=== PATIENT | female | born 1935 | race Caucasian/White ===

== ENCOUNTER → 2016-04-16 | Day surgery (SDC) | payer OTHER, MEDICARE ==
[2016-04-14 14:53] VITALS: Ht 157.5 cm; Wt 67.2 kg
[~2016-04-16] VITALS: Ht 157.5 cm; Wt 67.2 kg
[~2016-04-16] MED LIST: ACET-1256 PO; ACET500C14 PO; AMLO2.5T PO; ASPCH81 PO; ASPI81TA28 PO; ATOR-26 PO; BUME1TAB PO; BUME2TAB3 PO; BUPIVACAINE 0.25% 2.5MG/ML PF 10 ML VIAL INFIL ONE; CARV3.122 PO; CEFD1CAP14 PO; CEFD300C2 PO; CHOL2000 PO; CLOP1TAB15 PO; CRD200 PO; CRG3125 PO; CYAN10005 PO; IOPAMIDOL INJ 61% 15 ML VIAL ONE; LEVO125T72 PO; LIDOCAINE HCL 1% MPF 5 ML VIAL ONE; NTRGSL/4 UT; OLME1TAB11 PO; OLME20TA26 PO; POTA-74 PO; PRT40 PO; SPIR25TA PO; SPIR25TA89 PO; TRAM-10 PO; TRAZ50TA35 PO
[2016-04-16 13:07] VITALS: TEMP 36.3
--- NOTE | 2016-04-16 13:53 | History & Physical Bridge - [place] ---
H&P Re-Evaluation Bridge Note: I have examined the patient, reviewed the History & Physical and in the interval since the performance of the History & Physical I have noted the following changes of clinical significance: No changes noted
[2016-04-16 14:15] VITALS: BP 65/37; PULSE 73; O2SAT 95
--- NOTE | 2016-04-16 14:26 | Discharge Instructions ---
Discharge Instructions Visit Reason for Visit: Sacroiliitis Discharge Discharge Diagnosis / Problem: low back pain Discharge Goals Goal(s): Decrease discomfort, Improve function Activity Recommendations Activity Limitations: resume your previous activity Anesthesia . Post Anesthesia Instructions: If you have had General Anesthesia or IV Sedation: * Do not drive today. * Resume driving when surgeon permits. * Do not make important decisions or sign legal documents today. * Call surgeon for: 1. Temperature elevations greater than 101 degrees F. 2. Uncontrollable pain. 3. Excessive bleeding. 4. Persistent nausea and vomiting. 5. Medication intolerance (nausea, vomiting or rash). * For nausea and vomiting use only clear liquids such as: tea, soda, bouillon until nausea subsides, then gradually increase diet as tolerated. * If you have any concerns or questions, call your surgeon's office. If physician is unavailable and it is an emergency, call 911 or go to the nearest emergency room. . Diet Recommendations Recommended Home Diet: resume previous diet Procedures Procedures Performed: LEFT SACROILIAC JOINT INJECTION Pending Studies Studies pending at discharge: yes Medical Emergencies . Who to Call and When: Medical Emergencies: If at any time you feel your situation is an emergency, please call 911 immediately. . Non-Emergent Contact Non-Emergency issues call your: Specialist . . "Provider Documentation" section prepared by Yoshi Wesley.
--- NOTE | 2016-04-16 15:52 | OPERATIVE REPORT ---
DATE OF OPERATION: 04/16/2016 PREOPERATIVE DIAGNOSIS: Left sacroiliitis. POSTOPERATIVE DIAGNOSIS: Same. PROCEDURE: Left sacroiliac joint injection under fluoroscopic guidance. INDICATIONS: The patient is an 80-year-old white female who presents today for an SI joint injection. She received this in the past 5 months ago with greater than 66% relief of her pain. She reports just recently that over the past 4-6 weeks the pain has been gradually increasing and becoming problematic and functionally limiting to her. She presents today for an SI joint injection to provide her with relief. PHYSICAL EXAMINATION: Pleasant female seated comfortably. She has difficulty moving from a sit to stand position. She has point tenderness to palpation of the left SI joint that is worse with extension. She has normal motor and sensory examination. Negative seated straight leg raises. CONSENT: Verbal and written consent was obtained from the patient. Risks and benefits were reviewed. Risks include but are not limited to abscess and allergic reaction. The patient wishes to proceed. PROCEDURE: The patient was taken back to the special procedures room of [facility]. She was maintained in a prone position. Backside was cleansed with Betadine x3 and a dry sterile dressing was applied. Fluoroscope was used to identify the left SI joint. Overlying skin was anesthetized with lidocaine with 3 mL of 1.5%, then a 25 gauge 3.5 inch spinal needle was then directed into the joint. Isovue-300 contrast 0.25 mL demonstrated intraarticular uptake. She then underwent injection after negative aspiration of 40 mg of Depo-Medrol and 1.5 mL of bupivacaine 0.25%. Injection was well tolerated. DISPOSITION: 1. The patient is taken out into the discharge recovery area where she will be discharged home once discharge criteria have been met. 2. Follow up in the [facility] office in 2-4 weeks. I attest to the content of the Intraoperative Record and any orders documented therein. Any exceptio ns are noted below.
== END | disposition home or self-care (01) ==
LOC: X.SURG 12:59
PROVIDERS: ATTEND Physical Medicine & Rehabilitation
DX: M46.1 Sacroiliitis, not elsewhere classified (principal)

== ENCOUNTER → 2016-06-19 | Outpatient (CLI) | payer OTHER, MEDICARE ==
[~2016-06-19] MED LIST changes: -BUPIVACAINE 0.25% 2.5MG/ML PF 10 ML VIAL INFIL ONE; +GABA-1218 PO; -IOPAMIDOL INJ 61% 15 ML VIAL ONE; -LIDOCAINE HCL 1% MPF 5 ML VIAL ONE
--- NOTE | 2016-06-19 16:56 | DIAGNOSTIC IMAGING REPORT ---
CHEST 2 VIEWS ROUTINE CLINICAL HISTORY: Chest pain. History of chest trauma. COMPARISON STUDY: 08/02/2015 FINDINGS: There is a thoracolumbar scoliosis. The heart is normal in size. There is aortic tortuosity. There is no failure. There is no focal pulmonary consolidation. There is no pneumothorax. No pleural effusions are visualized. There is colonic interposition on the right.[ IMPRESSION: No active disease in the chest. Electronically signed by: Quentin Miller M.D. 06/19/2016 4:54 PM Dictated Date/Time: 06/19/2016 4:54 PM
--- NOTE | 2016-06-19 16:59 | DIAGNOSTIC IMAGING REPORT ---
RIGHT RIBS UNILATERAL MIN 2 VIEWS CLINICAL HISTORY: Right rib pain trauma. COMPARISON STUDY: Chest x-ray dated 06/19/2016 FINDINGS: There is a right seventh rib fracture, an equivocal right sixth rib fracture. There is no pneumothorax. IMPRESSION: 1. Nondisplaced right seventh rib fracture, and equivocal right sixth rib fracture. 2. No evidence of pneumothorax Electronically signed by: Quentin Miller M.D. 06/19/2016 4:57 PM Dictated Date/Time: 06/19/2016 4:54 PM
== END | disposition home or self-care (01) ==
LOC: C.RAD1850 16:35
PROVIDERS: ATTEND Family Medicine
DX: R07.9 Chest pain, unspecified (principal); S22.31XA Fracture of one rib, right side, initial encounter for closed fracture; X58.XXXA Exposure to other specified factors, initial encounter

== ENCOUNTER 2016-07-02 13:54 | Inpatient (IN) | payer OTHER, MEDICARE ==
[~2016-07-02] VITALS: Ht 152.4 cm; Wt 50.6 kg
[~2016-07-02 13:54] MED LIST changes: -ACET-1256 PO; -ASPI81TA28 PO; -BUME2TAB3 PO; -CARV3.122 PO; -CEFD1CAP14 PO; -CEFD300C2 PO; -CRD200 PO; -CYAN10005 PO; -GABA-1218 PO; -OLME20TA26 PO; -POTA-74 PO; -PRT40 PO; -SPIR25TA89 PO
[2016-07-02] MEDS ORDERED: SODIUM CHLORIDE 0.9% 1000ML 1,000 ML IV STA ×2 (14:16)
--- NOTE | 2016-07-02 14:24 | EMERGENCY ROOM VISIT NOTE ---
History Report prepared by Estrellita: Leni Haddad Under the Supervision of: Dr. Sergio Stuart M.D. First contact with patient: 14:08 Chief Complaint: VOMITING Stated Complaint: DEHYDRATED History of Present Illness The patient is an 80 year old female who presents to the Emergency Room with complaints of persistent vomiting that began a few days ago. The patient additionally associates nausea and diarrhea with her symptoms today. The patient's daughter notes that the patient's speech was slurred this morning and she could not understand the patient. She notes that this has happened in the past, which prompted her to call for ALS. The patient's daughter notes that the patient has developed a right facial droop within the last few days, noting that she last saw the patient on Wednesday. She notes that the patient has a history of strokes. The patient's daughter notes that the patient had a fall two weeks ago, noting that the patient hit her chest off of the kitchen table. The patient was noted to be hypotensive today. The patient denies any hematochezia, melena, abdominal pain, or wounds to her bottom. She denies any recent antibiotic use. Source of History: patient, family (daughter) Onset: few days ago Position: other (global) Quality: other (vomiting) Timing: other (persistent) Associated Symptoms: + diarrhea, + nausea, No abdominal pain, No hematochezia, No melena Note: Associated Symptoms: left facial droop, speech slur, hypotensive Review of Systems See HPI for pertinent positives & negatives. A total of 10 systems reviewed and were otherwise negative. Past Medical & Surgical Medical Problems: (1) Acute exacerbation of CHF (congestive heart failure) (2) CHF (congestive heart failure) (3) Hypoxia (4) TIA (transient ischemic attack) Family History No pertinent family history Social History Smoking Status: Former Smoker Housing Status: lives alone Occupation Status: unemployed Current/Historical Medications Scheduled Acetaminophen (Tylenol), 2 TAB PO Q6 Amlodipine Besylate (Norvasc), 2.5 MG PO QAM Aspirin (Aspirin Ec), 81 MG PO DAILY Atorvastatin (Lipitor), 80 MG PO HS Bumetanide (Bumex), 1.5 MG PO QAM Carvedilol (Coreg), 1 TAB PO BID Cholecalciferol (Vitamin D3), 1 CAP PO HS Clopidogrel (Plavix), 75 MG PO QAM Levothyroxine Sodium (Synthroid), 125 MCG PO QAM Olmesartan Medoxomil (Benicar), 20 MG PO QAM Spironolactone (Aldactone), 25 MG PO QAM Scheduled PRN Nitroglycerin (Nitrostat), 0.4 MG UT PRN PRN for Chest Pain Tramadol (Ultram), 1-2 TAB PO Q4 PRN for Pain Trazodone Hcl (Trazodone), 25 MG PO HS PRN for Sleep Allergies Coded Allergies: Ramipril (Verified Allergy, Unknown, Cough, 07/02/16) Physical Exam Vital Signs Date Time Temp Pulse Resp B/P Pulse Ox O2 Delivery O2 Flow Rate FiO2 07/02/16 14:30 90 18 76/39 96 Nasal Cannula 2.0 07/02/16 14:15 93 Room Air 07/02/16 14:10 36.9 91 23 69/50 93 Room Air Physical Exam GENERAL: Patient is chronically unwell appearing and in mild distress. Uncomfortable appearing. HEENT: No acute trauma, normocephalic atraumatic, mucous membranes dry, no nasal congestion, no scleral icterus. NECK: No stridor, no adenopathy, no meningismus, trachea is midline. LUNGS: No dyspnea. Clear to auscultation and equal bilaterally. No wheeze, no rhonchi. HEART: Regular rate and rhythm. No murmurs, rubs, gallops appreciated. ABDOMEN: Multiple large nontender hernias. Soft, nontender, bowel sounds positive, no masses appreciated, no peritonitis. BACK: No midline tenderness, no CVA tenderness EXTREMITIES: Normal motion all extremities, no cyanosis, no edema. NEUROLOGIC: Alert and oriented, right facial droop with slurred speech. Generalized weakness in all extremities without other focal weakness. SKIN: No rash, no jaundice, no diaphoresis. Medical Decision & Procedures ER Provider Diagnostic Interpretation: Radiology results and stated below per my review and radiologist interpretation: CT HEAD WITHOUT CONTRAST (CT) CLINICAL HISTORY: Head trauma. Stroke. COMPARISON STUDY: 06/28/2014 TECHNIQUE: Axial CT of the brain is performed from the vertex to the skull base. IV contrast was not administered for this examination. CT DOSE: 614.27 mGy.cm FINDINGS: No intra or extra-axial mass lesions are visualized. There is no CT evidence of acute cortical infarction. There is no evidence of midline shift. There is no acute hemorrhage. No calvarial fractures are visualized. There are patchy white matter hypodensities likely on a small vessel basis. There are old bilateral basal ganglial lacunar infarcts. There is no evidence of significant hydrocephalus. There is persistent dilatation of the anterior horn left lateral ventricle, likely secondary to adjacent parenchymal volume loss There is no evidence of acute sinusitis IMPRESSION: No acute intracranial findings Electronically signed by: Quentin Miller M.D. 07/02/2016 3:41 PM Dictated Date/Time: 07/02/2016 3:39 PM SINGLE VIEW CHEST CLINICAL HISTORY: Hypotension. Dehydration. FINDINGS: An AP, portable, upright chest radiograph is compared to study dated 06/19/2016. Correlation is made with abdominal CT dated 07/06/2014. The examination is degraded by portable technique and patient rotation. The heart is top normal for projection. The pulmonary vasculature is noncongested. There is advanced atherosclerotic calcification of the thoracic aorta. 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 This is similar in appearance to prior studies. There is chronic elevation of the right hemidiaphragm with right basilar atelectasis. Chronic interstitial thickening is unchanged. No airspace consolidation is seen typical for pneumonia and there is no large pleural effusion. No pneumothorax is seen. The skeletal structures are osteopenic. The bony thorax is grossly intact. IMPRESSION: 1. Chronic parenchymal changes as above with no acute cardiopulmonary abnormality 2. An aneurysm of the descending thoracic aorta is identified and similar in appearance to prior studies. Electronically signed by: Miguel Venegas M.D. 07/02/2016 2:44 PM Dictated Date/Time: 07/02/2016 2:41 PM Laboratory Results Test 07/02/16 14:50 07/02/16 14:56 07/02/16 16:12 Prothrombin Time 11.4 SECONDS (9.0-12.0) Prothromb Time International Ratio 1.1 (0.9-1.1) Activated Partial Thromboplast Time 28.9 SECONDS (21.0-31.0) Partial Thromboplastin Ratio 1.1 Globulin 3.8 gm/dl (2.5-4.0) Albumin/Globulin Ratio 0.9 (0.9-2) Procalcitonin 17.04 ng/ml (0-0.5) Bedside Lactic Acid Venous 3.63 mmol/L (0.90-1.70) Bedside Blood Gas pH (LAB) 7.39 (7.35-7.45) Bedside Blood Gas pCO2 (LAB) 37 mmHg (35-46) Bedside Blood Gas pO2 (LAB) 41 mmHg (80-95) Bedside Blood Gas HCO3 (LAB) 22 meq/L (19-24) Bedside Blood Gas Total CO2 23 mEq/l (24-31) Bedside Blood Gas Base Excess (LAB) -3.0 meq/L (-9-1.8) Bedside Blood Gas O2 Saturation 76.0 % (90-95) Laboratory results as reviewed by me. Medications Administered Medications (Trade) Dose Ordered Sig/Nicko Route Start Time Stop Time Status Last Admin Dose Admin Sodium Chloride 1,000 ml @ 999 mls/hr Q1H1M STAT IV 07/02/16 14:16 07/02/16 15:16 DC 07/02/16 15:07 999 MLS/HR Sodium Chloride 1,000 ml @ 999 mls/hr Q1H1M STAT IV 07/02/16 14:16 07/02/16 15:16 DC 07/02/16 15:07 999 MLS/HR Vancomycin HCl/ Sodium Chloride (Vancomycin Inj/ Nss 500ml) 532 ml @ 200 mls/hr ONE STAT IV 07/02/16 15:44 07/02/16 18:23 DC 07/02/16 16:37 200 MLS/HR Piperacillin Sod/ Tazobactam Sod 4.5 gm 4.5 gm NOW STAT IV 07/02/16 15:44 07/02/16 15:46 DC 07/02/16 16:00 4.5 GM Sodium Chloride (Nss 1000ml) 1,000 ml @ 80 mls/hr [id number] IV 07/02/16 16:16 08/01/16 16:15 07/03/16 05:57 80 MLS/HR ECG Indication: vomiting Rate (beats per minute): 90 Rhythm: sinus rhythm Findings: ST depression (Lateral), no ectopy, other (no STEMI) ED Course 1408: The patient was evaluated in room B11B. A complete history and physical exam was performed. 1416: Ordered Sodium Chloride 1000 ml @ 999 mls/hr IV, Sodium Chloride 1000 ml @ 999 mls/hr IV. 1544: Ordered Zosyn IV 4.5 gm IV, Vancomycin HCl 1600 mg/Sodium Chloride 532 ml @ 200 mls/hr IV. 1549: I discussed the patients case with TYLOR Mcgowan. He is going to evaluate the patient for further treatment. Medical Decision Differential: Sepsis, Infectious (UTI/Pneumonia/Meningitis/etc), Metabolic/ Electrolyte Abnormality, Cardiac, Hepatic, Endocrine, Toxicologic, Neurologic, amongst other pathologies entertained. 80 yr old female arrives for evaluation of diarrhea and weakness. Noted to be severely hypotensive on arrival though review of chart makes very clear this is her normal BP range secondary to subclavian stenosis. However, she was ill appearing and toxic looking thus Lactic acid, blood cultures and 2 IVs ordered along with 2 L NSS Bolus ordered (30ml/kg bolus). It was understood her severe history of CHF however I did feel patient clearly severely dehydrated and with concern septic felt aggressive hydration for resus required. Initial Lactate elevated though this could be more do to dehydration as well. With return of procalcitonin being severely elevated elected to at this time to go ahead with broad spectrum abx. She is in renal failure, likely secondary to level of dehydration as well. Abdominal exam benign and without current vomiting elected to hold off on imaging at this time. Right facial droop and slurred speech significantly worse than baseline concerning for new stroke, though also is similar to symptoms from previous TIA. CT head without acute findings. Ongoing for a day thus is not TPA candidate. Suspect her severe volume depletion has exacerbated previous stroke issues, though with current severe illness she is in no condition to go through MRI at this time. Discussed case at length with hospitalist as well as family on several occasions. Consults Time Called: [phone] Consulting Physician: TYLOR Mcgowan Returned Call: [phone] I discussed the patients case with TYLOR Mcgowan. He is going to evaluate the patient for further treatment. Impression Primary Impression: Sepsis Additional Impressions: Lactic acidosis Dehydration Hypotension Stroke Critical Care I have personally spent greater than 45 minutes of critical care time in the direct management of this patient. This was a life/limb threatening event. This includes time spent evaluating patient, direct bedside care, chart review, placing orders, interpretation of diagnostic studies, discussion with consultants, patient, and family members, as well as other required patient management activities. This 45 minutes is in excess of all separately billable procedures. Scribe Attestation The scribe's documentation has been prepared under my direction and personally reviewed by me in its entirety. I confirm that the note above accurately reflects all work, treatment, procedures, and medical decision making performed by me. Departure Information Dispostion Being Evaluated By Hospitalist Isauro Howard M.D. (PCP) Stroke History Stroke t-PA Criteria Reviewed Does NOT meet criteria for t-PA Reason t-PA Not Given Treatment not indicated (The right facil droop has been present since yesterday. ) Problem Qualifiers Primary Impression: Sepsis Sepsis type: sepsis due to unspecified organism Qualified Codes: A41.9 - Sepsis, unspecified organism Additional Impressions: Hypotension Hypotension type: unspecified hypotension type Qualified Codes: I95.9 - Hypotension, unspecified Stroke CVA mechanism: unspecified Qualified Codes: I63.9 - Cerebral infarction, unspecified
--- NOTE | 2016-07-02 14:46 | DIAGNOSTIC IMAGING REPORT ---
SINGLE VIEW CHEST CLINICAL HISTORY: Hypotension. Dehydration. FINDINGS: An AP, portable, upright chest radiograph is compared to study dated 06/19/2016. Correlation is made with abdominal CT dated 07/06/2014. The examination is degraded by portable technique and patient rotation. The heart is top normal for projection. The pulmonary vasculature is noncongested. There is advanced atherosclerotic calcification of the thoracic aorta. 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 This is similar in appearance to prior studies. There is chronic elevation of the right hemidiaphragm with right basilar atelectasis. Chronic interstitial thickening is unchanged. No airspace consolidation is seen typical for pneumonia and there is no large pleural effusion. No pneumothorax is seen. The skeletal structures are osteopenic. The bony thorax is grossly intact. IMPRESSION: 1. Chronic parenchymal changes as above with no acute cardiopulmonary abnormality 2. An aneurysm of the descending thoracic aorta is identified and similar in appearance to prior studies. Electronically signed by: Miguel Venegas M.D. 07/02/2016 2:44 PM Dictated Date/Time: 07/02/2016 2:41 PM
[2016-07-02 15:01] LABS: COMPLETE YES; HEMATOCRIT 37.7 % (37-47); IG% 0.4 %; LYMPH % 11.6 %; LYMPH ABS # 0.99 K/uL (1.2-3.4); MEAN CELL VOLUME 99.7 fL (80-100); MEAN CORPUSCULAR HEMOGLOBIN 33.3 pg (25-34); MEAN CORPUSCULAR HGB CONC 33.4 g/dl (32-36); MEAN PLATELET VOLUME 10.7 fL (7.4-10.4); PLATELET COUNT 299 K/uL (130-400); RED BLOOD COUNT 3.78 M/uL (4.2-5.4)
[2016-07-02] MEDS ORDERED: ASPI81TA28 PO (15:05)
[2016-07-02] MEDS ORDERED: CARV3.122 PO (15:05)
[2016-07-02] MEDS ORDERED: ACET-1256 PO (15:05)
[2016-07-02 15:14] LABS: INR 1.1 (0.9-1.1); PARTIAL THROMBOPLASTIN RATIO 1.1; PROTHROMBIN TIME (PATIENT) 11.4 SECONDS (9.0-12.0)
[2016-07-02 15:18] LABS: BUN/CREATININE RATIO 27.1 (10-20); CALCIUM 8.1 mg/dl (8.5-10.1); CREATININE 4.1 mg/dl (0.60-1.20); MAGNESIUM 2.5 mg/dl (1.8-2.4); POTASSIUM 4.4 mmol/L (3.5-5.1)
[2016-07-02 15:23] LABS: ALB/GLOB RATIO 0.9 (0.9-2)
--- NOTE | 2016-07-02 15:43 | DIAGNOSTIC IMAGING REPORT ---
CT HEAD WITHOUT CONTRAST (CT) CLINICAL HISTORY: Head trauma. Stroke. COMPARISON STUDY: 06/28/2014 TECHNIQUE: Axial CT of the brain is performed from the vertex to the skull base. IV contrast was not administered for this examination. CT DOSE: 614.27 mGy.cm FINDINGS: No intra or extra-axial mass lesions are visualized. There is no CT evidence of acute cortical infarction. There is no evidence of midline shift. There is no acute hemorrhage. No calvarial fractures are visualized. There are patchy white matter hypodensities likely on a small vessel basis. There are old bilateral basal ganglial lacunar infarcts. There is no evidence of significant hydrocephalus. There is persistent dilatation of the anterior horn left lateral ventricle, likely secondary to adjacent parenchymal volume loss There is no evidence of acute sinusitis IMPRESSION: No acute intracranial findings Electronically signed by: Quentin Miller M.D. 07/02/2016 3:41 PM Dictated Date/Time: 07/02/2016 3:39 PM
[2016-07-02] MEDS ORDERED: PIPERACILLIN/TAZOBACTAM 4.5 GM/100ML D5W IV STA (15:44)
[2016-07-02] MEDS ORDERED: VANCOMYCIN INJ 1,600 MG in SODIUM CHLORIDE 0.9% 500ML 500 ML IV STA (15:44)
[2016-07-02 16:30] LABS: ISTAT ARTERIAL BLOOD GAS HCO3 22 meq/L (19-24); ISTAT ARTERIAL BLOOD GAS PCO2 37 mmHg (35-46); ISTAT ARTERIAL BLOOD GAS PO2 41 mmHg (80-95); ISTAT ARTERIAL BLOOD GAS pH 7.39 (7.35-7.45); ISTAT CARBON DIOXIDE 23 mEq/l (24-31)
[2016-07-02] MEDS ORDERED: ACETAMINOPHEN 325 MG TAB PO PRN (16:30)
[2016-07-02] MEDS ORDERED: ONDANSETRON INJ 2 MG/ML 2 ML VIAL IV PRN (16:30)
[2016-07-02] MEDS ORDERED: CONSULT PHARMACY STA (16:44)
[2016-07-02 17:11] LABS: URINE APPEARANCE CLOUDY (CLEAR); URINE COLOR ORANGE; URINE EPITHELIAL CELL AUTO >30 /lpf (0-5); URINE NITRITE POS (NEG); UROBILINOGEN NEG (NEG); ZZURINE CULT IF INDIC CATH YES
[2016-07-02 17:13] LABS: MANUAL MICROSCOPIC REQUIRED? NO; REVIEW REQ? YES
[2016-07-02 17:15] LABS: URINE BILIRUBIN NEG (NEG)
[2016-07-02] MEDS ORDERED: PIPERACILL/TAZOBAC CONSULT ACTIVE PRN (17:15)
[2016-07-02] MEDS ORDERED: VANCOMYCIN CONSULT ACTIVE PRN (17:15)
[2016-07-02 17:58] VITALS: BP 90/55; PULSE 60; TEMP 36.5; Ht 152.4 cm; Wt 50.6 kg
[2016-07-02] MEDS: SODIUM CHLORIDE 0.9% 1000ML 1,000 ML IV SCH (18:43)
--- NOTE | 2016-07-02 18:48 | DIAGNOSTIC IMAGING REPORT ---
ABDOMEN AND PELVIS CT WITHOUT CONTRAST CT DOSE: 276.47 mGy.cm HISTORY: Generalized ABDOMINAL PAIN, LACTIC ACIDOSIS, H/O SBO TECHNIQUE: Multiaxial CT images of the abdomen and pelvis were performed without contrast. COMPARISON STUDY: Abdomen and pelvis CT 07/06/2014. FINDINGS: Patchy groundglass densities within the base of the right lower lobe. The left lung base is clear. No pneumoperitoneum. No pneumatosis. Severe left hip osteoarthritis, unchanged. Levoscoliosis of the lumbar spine with degenerative change. Acute to subacute right anterior rib fractures. Mild inferior endplate compression deformity at T12 is likely old. Aneurysmal dilatation of the descending thoracic aorta measuring 6.6 x 5.4 cm. This is increased in size in the prior study when it measured up to 5.5 cm. There is additional right lateral saccular aneurysm at this location which measures 1.9 cm, previously measuring 1.7 cm. There is also aneurysmal dilatation of the proximal abdominal aorta measuring 4.2 cm, previous measuring 4.0 cm. The bladder is decompressed by a Díaz catheter. Fluid-filled colon. A short segment of the mid transverse colon is located within a ventral hernia. This is similar to the prior study. There are 2 stable hypodense lesions within the liver measuring up to 1 cm. These favor cysts. The gallbladder is mildly distended. The spleen, adrenal glands, and pancreas are unremarkable. Atrophic right kidney containing a 5.2 cm hypodense lesion. This remains stable and likely represents a cyst. 2 small hypodense lesions within the left kidney favor cysts. No hydronephrosis. Suboptimal evaluation for bowel pathology due to the lack of intravenous and oral contrast. There are distended loops of mid small bowel within the abdomen. These measure up to 4 m in diameter and likely represent a partial small bowel obstruction. These demonstrate air fluid levels. Distal ileal loops are slightly decompressed and could be mildly thickened. An exact transition point is difficult to identify at this time. There is also a small fat-containing midline ventral hernia, unchanged IMPRESSION: 1. Above findings are consistent with a small bowel obstruction, likely a partial small bowel obstruction. A transition point is not clearly identified at this time. However, the distal ileal loops are slightly decompressed and could be mildly thickened in the setting of an ileitis. 2. 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 3. No change in the ventral hernias. These do not appear to result in the bowel obstruction. 4. Nonspecific ground glass densities within the right lung base which could be due to scarring or a pneumonitis. 5. Acute to subacute right anterior rib fractures. Electronically signed by: Rick Bae M.D. 07/02/2016 6:46 PM Dictated Date/Time: 07/02/2016 6:33 PM
[2016-07-02 18:49] VITALS: O2SAT 91
[2016-07-02 19:21] VITALS: PULSE 95; TEMP 36.4; O2SAT 90
[2016-07-02 19:22] LABS: BUN/CREATININE RATIO 30.5 (10-20); CALCIUM 6.7 mg/dl (8.5-10.1); CREATININE 3.3 mg/dl (0.60-1.20); POTASSIUM 3.9 mmol/L (3.5-5.1)
--- NOTE | 2016-07-02 19:58 | Pharmacy Progress Note ---
Pharmacy Antibiotic Consult Date of Service: Jul 02, 2016. Pharmacy Dosing Scope Pharmacy is consulted to initiate vancomycin IV dosing therapy, order appropriate labs and adjust drug dose/frequency. Subjective The patient is a 80 year old female admitted on Jul 02, 2016 at 16:21. Objective Height (Feet): 5 Height (Inches): 2.00 Weight (Kilograms): 63.900 Lab Results (24hrs): Laboratory Tests Test 07/02/16 14:50 07/02/16 18:55 BUN/Creatinine Ratio 27.1 30.5 Blood Urea Nitrogen 111 mg/dl 101 mg/dl Creatinine 4.10 mg/dl 3.30 mg/dl White Blood Count 8.50 K/uL Red Blood Count 3.78 M/uL Hemoglobin 12.6 g/dL Hematocrit 37.7 % Mean Corpuscular Volume 99.7 fL Mean Corpuscular Hemoglobin 33.3 pg Mean Corpuscular Hemoglobin Concent 33.4 g/dl Platelet Count 299 K/uL Mean Platelet Volume 10.7 fL Neutrophils (%) (Auto) 74.0 % Lymphocytes (%) (Auto) 11.6 % Monocytes (%) (Auto) 14.0 % Eosinophils (%) (Auto) 0.0 % Basophils (%) (Auto) 0.0 % Neutrophils # (Auto) 6.29 K/uL Lymphocytes # (Auto) 0.99 K/uL Monocytes # (Auto) 1.19 K/uL Eosinophils # (Auto) 0.00 K/uL Basophils # (Auto) 0.00 K/uL Assessment & Plan Assessment * 80 yo F with sepsis, unknown source. On Zosyn, vancomycin. * Patient with severe renal dysfunction - will dose vancomycin via level * Vancomycin loading dose of 25 mg/kg already administered in ED. Will not administer further vancomycin at this time. * Will check random vancomycin level with AM labs Plan * No further vancomycin needed before tomorrow * Vancomycin level tomorrow with AM labs Pharmacy will continue to follow and will adjust dose/frequency as necessary. Thank you
[2016-07-02 20:00] VITALS: O2SAT 90
--- NOTE | 2016-07-02 20:18 | History and Physical ---
History & Physical Date & Time of Service: Jul 02, 2016 at 16:23 Chief Complaint: Dehydrated Primary Care Physician: Isauro Lange M.D. History of Present Illness Source: patient, family, clinic records, hospital records 80 yo female with extensive cardiac history detailed below presents today c/o feeling ill for several days. She reports that she has had diarrhea, averaging 4 loose stools every day for the past few days. No bloody diarrhea that she has seen. She also has been vomiting and has been unable to keep anything down for the past few days. She has not taken any medications for 2 days. She denies severe abdominal pain and she recalls that when she had SBO in 2016 she had similar symptoms. She c/o profound fatigue and weakness and chills. No documented fevers. She has not made any urine yet today in 8 hours. She denies chest pain and shortness of breath. Nothing has improved her symptoms at home. In the ED she was found to be hypotensive initially with BP in the 60- 70's systolic. The patient says that she has subclavian stenosis that always makes her BP lower in her extremities. CXR and CT head were unremarkable. Her BMP showed marked elevated in her BUN at 111 as well as Cr at 4.1, baseline 1.0. Her lactic acid was 3.6 and procalcitonin was markedly elevated. She was started on broad spectrum antibiotics after cultures drawn and IV fluids initiated. We were asked to evaluated for admission. Past Medical/Surgical History Infrarenal open AAA repair with aortobifemoral grafting Juxtarenal suprarenal abdominal aortic aneurysms as well as thoracic, followed by Dr. 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 Chronic systolic congestive heart failure, apparently not previously hospitalized for this. Valvular heart disease (aortic stenosis felt to be [id number] in the past ) Sacroiliitis Hypertension (although listed as a problem, she notes that her blood pressures is generally 70-80 mmHg in her arms, but approximately 50 mm higher as a "core pressure" per prior central hemodynamics obtained at catheterization). Dyslipidemia Subclavian steal syndrome Elevated fasting glucose Spinal stenosis Toxic diffuse goiter Graves ophthalmopathy Decreased hearing Pulmonary hypertension Cerebrovascular accident without residual deficits Incisional hernia History of concussion Multiple small bowel obstructions. PAST SURGICAL HISTORY: 1. Abdominal aortic aneurysm repair and bifemoral arterial grafts. Family History FAMILY HISTORY:Mother at 80 hypertension, father 56 stroke, brother of lung cancer. Social History Smoking Status: Never Smoker Occupational Status: unemployed Immunizations History of Influenza Vaccine: Yes Influenza Vaccine Date: Jan 12, 2013 History of Tetanus Vaccine?: Unknown History of Pneumococcal: Yes History of Hepatitis B Vaccine: Unknown Multi-Drug Resistant Organisms History of MDRO: No Allergies Coded Allergies: Ramipril (Verified Allergy, Unknown, Cough, 07/02/16) Home Medications Scheduled Acetaminophen (Tylenol), 2 TAB PO Q6 Amlodipine Besylate (Norvasc), 2.5 MG PO QAM Aspirin (Aspirin Ec), 81 MG PO DAILY Atorvastatin (Lipitor), 80 MG PO HS Bumetanide (Bumex), 1.5 MG PO QAM Carvedilol (Coreg), 1 TAB PO BID Cholecalciferol (Vitamin D3), 1 CAP PO HS Clopidogrel (Plavix), 75 MG PO QAM Levothyroxine Sodium (Synthroid), 125 MCG PO QAM Olmesartan Medoxomil (Benicar), 20 MG PO QAM Spironolactone (Aldactone), 25 MG PO QAM Scheduled PRN Nitroglycerin (Nitrostat), 0.4 MG UT PRN PRN for Chest Pain Tramadol (Ultram), 1-2 TAB PO Q4 PRN for Pain Trazodone Hcl (Trazodone), 25 MG PO HS PRN for Sleep Review of Systems Constitutional: + chills, + fatigue, + weakness, No fever, No sweats, No weight loss Eyes: No diplopia, No discharge, No eye pain, No problem reported, No redness, No worsening of vision ENT: + hearing loss, No dental problems, No nasal symptoms, No problem reported , No sore throat, No tinnitus, No trouble swallowing, No unusual epistaxis Respiratory: No cough, No dyspnea at rest, No dyspnea on exertion, No hemoptysis, No shortness of breath, No sputum, No wheezing Cardiovascular: No PND, No chest pain, No claudication, No edema, No orthopnea Abdomen: + diarrhea (brown, liquid, no blood or tarry BM), + nausea, + vomiting (brown, bilious vomit, no blood), No GI bleeding, No constipation, No pain Musculoskeletal: No calf pain, No joint pain, No muscle pain, No problem reported, No swelling Genitourinary - Female: + problem reported (decrease urine output), No dysuria , No hematuria, No urinary frequency, No urinary incontinence, No urinary retention, No urinary urgency Neurologic: + weakness, No balance problems, No memory loss, No numbness/ tingling, No paralysis, No problem reported, No vertigo Psychiatric: No anhedonism, No anxiety, No depression symptoms, No insomnia, No problem reported, No substance abuse Endocrine: + fatigue, No excessive thirst, No excessive urination, No problem reported Hematologic / Lymphatic: No abnormal bleeding/bruising, No clotting problems, No night sweats, No problem reported, No swollen lymph nodes Integumentary: No bleeding, No color change, No itch, No new/changing skin lesions, No problem reported, No rash Allergic / Immunologic: No environmental allergies, No food allergies, No frequent infections, No hives, No pet sensitivities, No poor healing, No problem reported, No prolonged convalescence, No seasonal allergies Physical Exam Vital Signs Date Time Temp Pulse Resp B/P Pulse Ox O2 Delivery O2 Flow Rate FiO2 07/02/16 14:30 90 18 76/39 96 Nasal Cannula 2.0 07/02/16 14:15 93 Room Air 07/02/16 14:10 36.9 91 23 69/50 93 Room Air General Appearance: + mild distress, + thin Head: normocephalic, atraumatic Eyes: normal inspection, PERRL, EOMI, sclerae normal ENT: normal ENT inspection, hearing grossly normal, pharynx normal Neck: supple, no adenopathy, no JVD, trachea midline Respiratory/Chest: chest non-tender, lungs clear, no respiratory distress, no accessory muscle use, + decreased breath sounds (bases) Cardiovascular: no edema, no gallop, no JVD, normal peripheral pulses, + systolic murmur, + irregularly irregular Abdomen/GI: soft, no organomegaly, + tenderness (mild around the umbilicus), + abnormal bowel sounds (hypoactive), + distended Back: normal inspection, no CVA tenderness, no muscle spasm, normal range of motion Extremities/Musculoskelatal: normal inspection, no calf tenderness, normal capillary refill, no pedal edema, normal range of motion Neurologic/Psych: alert, normal mood/affect, normal reflexes, oriented x 3, + facial droop (left sided, chronic), + motor weakness (generalized) Skin: normal color, warm/dry, no rash Lymphatic: no adenopathy Diagnostics Laboratory Results Results Past 24 Hours Test 07/02/16 14:50 07/02/16 14:56 07/02/16 15:22 Range/Units White Blood Count 8.50 4.8-10.8 K/uL Red Blood Count 3.78 4.2-5.4 M/uL Hemoglobin 12.6 12.0-16.0 g/dL Hematocrit 37.7 37-47 % Mean Corpuscular Volume 99.7 80-100 fL Mean Corpuscular Hemoglobin 33.3 25-34 pg Mean Corpuscular Hemoglobin Concent 33.4 32-36 g/dl Platelet Count 299 130-400 K/uL Mean Platelet Volume 10.7 7.4-10.4 fL Neutrophils (%) (Auto) 74.0 % Lymphocytes (%) (Auto) 11.6 % Monocytes (%) (Auto) 14.0 % Eosinophils (%) (Auto) 0.0 % Basophils (%) (Auto) 0.0 % Neutrophils # (Auto) 6.29 1.4-6.5 K/uL Lymphocytes # (Auto) 0.99 1.2-3.4 K/uL Monocytes # (Auto) 1.19 0.11-0.59 K/uL Eosinophils # (Auto) 0.00 0-0.5 K/uL Basophils # (Auto) 0.00 0-0.2 K/uL RDW Standard Deviation 52.1 36.4-46.3 fL RDW Coefficient of Variation 14.4 11.5-14.5 % Immature Granulocyte % (Auto) 0.4 % Immature Granulocyte # (Auto) 0.03 0.00-0.02 K/uL Prothrombin Time 11.4 9.0-12.0 SECONDS Prothromb Time International Ratio 1.1 0.9-1.1 Activated Partial Thromboplast Time 28.9 21.0-31.0 SECONDS Partial Thromboplastin Ratio 1.1 Sodium Level 135 136-145 mmol/L Potassium Level 4.4 3.5-5.1 mmol/L Chloride Level 92 98-107 mmol/L Carbon Dioxide Level 27 21-32 mmol/L Anion Gap 16.0 3-11 mmol/L Blood Urea Nitrogen 111 7-18 mg/dl Creatinine 4.10 0.60-1.20 mg/dl Est Creatinine Clear Calc Drug Dose 9.2 ml/min Estimated GFR () 11.0 Estimated GFR (Non- 9.5 BUN/Creatinine Ratio 27.1 10-20 Random Glucose 108 70-99 mg/dl Calcium Level 8.1 8.5-10.1 mg/dl Magnesium Level 2.5 1.8-2.4 mg/dl Total Bilirubin 0.5 0.2-1 mg/dl Aspartate Amino Transf (AST/SGOT) 33 15-37 U/L Alanine Aminotransferase (ALT/SGPT) 19 12-78 U/L Alkaline Phosphatase 90 45-117 U/L Total Creatine Kinase 662 26-192 U/L Troponin I 0.034 0-0.045 ng/ml Total Protein 7.4 6.4-8.2 gm/dl Albumin 3.6 3.4-5.0 gm/dl Globulin 3.8 2.5-4.0 gm/dl Albumin/Globulin Ratio 0.9 0.9-2 Procalcitonin 17.04 0-0.5 ng/ml Bedside Lactic Acid Venous 3.63 0.90-1.70 mmol/L Microbiology Results 07/02/16 Blood Culture, Received Pending 07/02/16 Blood Culture, Received Pending Diagnostic Radiology ABDOMEN AND PELVIS CT WITHOUT CONTRAST CT DOSE: 276.47 mGy.cm HISTORY: Generalized ABDOMINAL PAIN, LACTIC ACIDOSIS, H/O SBO TECHNIQUE: Multiaxial CT images of the abdomen and pelvis were performed without contrast. COMPARISON STUDY: Abdomen and pelvis CT 07/06/2014. FINDINGS: Patchy groundglass densities within the base of the right lower lobe. The left lung base is clear. No pneumoperitoneum. No pneumatosis. Severe left hip osteoarthritis, unchanged. Levoscoliosis of the lumbar spine with degenerative change. Acute to subacute right anterior rib fractures. Mild inferior endplate compression deformity at T12 is likely old. Aneurysmal dilatation of the descending thoracic aorta measuring 6.6 x 5.4 cm. This is increased in size in the prior study when it measured up to 5.5 cm. There is additional right lateral saccular aneurysm at this location which measures 1.9 cm, previously measuring 1.7 cm. There is also aneurysmal dilatation of the proximal abdominal aorta measuring 4.2 cm, previous measuring 4.0 cm. The bladder is decompressed by a Concepcion catheter. Fluid-filled colon. A short segment of the mid transverse colon is located within a ventral hernia. This is similar to the prior study. There are 2 stable hypodense lesions within the liver measuring up to 1 cm. These favor cysts. The gallbladder is mildly distended. The spleen, adrenal glands, and pancreas are unremarkable. Atrophic right kidney containing a 5.2 cm hypodense lesion. This remains stable and likely represents a cyst. 2 small hypodense lesions within the left kidney favor cysts. No hydronephrosis. Suboptimal evaluation for bowel pathology due to the lack of intravenous and oral contrast. There are distended loops of mid small bowel within the abdomen. These measure up to 4 m in diameter and likely represent a partial small bowel obstruction. These demonstrate air fluid levels. Distal ileal loops are slightly decompressed and could be mildly thickened. An exact transition point is difficult to identify at this time. There is also a small fat-containing midline ventral hernia, unchanged IMPRESSION: 1. Above findings are consistent with a small bowel obstruction, likely a partial small bowel obstruction. A transition point is not clearly identified at this time. However, the distal ileal loops are slightly decompressed and could be mildly thickened in the setting of an ileitis. 2. 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 3. No change in the ventral hernias. These do not appear to result in the bowel obstruction. 4. Nonspecific ground glass densities within the right lung base which could be due to scarring or a pneumonitis. 5. Acute to subacute right anterior rib fractures. CXR normal EKG sinus rhythm, ST depressions and TW changes lateral leads Impression Assessment and Plan 80 yo female presenting with weakness, vomiting, diarrhea x 4 days, found to have PARAS and lactic acidosis on lab work and partial SBO on CT scan - Partial SBO: place NGT to low intermittent suctions, KUB tomorrow, could consider clamp trial when improved will ask general surgery to evaluate tomorrow NPO - PARAS: Cr up to 4.1, trending back down on repeat labs, BUN markedly elevated at 111, also trending down with fluids likely exacerbated by Aldactone, bumex and Benicar use, last doses were two days ago concepcion placed to monitor UO continue fluids at 80cc/hr, cautious with h/o systolic HF - Lactic acidosis: due to dehydration and poor perfusion, improving on repeat lab work BP low but that is normal for her started on empiric antibiotics for potential infection, UA normal, CXR without infiltrate and no inflammatory changes in abdomen would stop antibiotics after 48 hours - Hypotension: patient has known subclavian stenosis which causes peripheral pressures to read 50mmHg lower than actual pressures - Dehydration: NSS at 80cc/hr, received 2L of fluid in the ED - Enlarging AAA: she says she had a repair at [facility] years ago, now on CT the AAA is > 6cm in diameter consult Dr. Carballo tomorrow for recommendations - CAD with h/o IQRA: will resume aspirin and Plavix once she can take PO again lateral ST depression and TW changes, will cycle enzymes and repeat EKG in AM obtain echo tomorrow - Chronic systolic HF: no signs of volume overload, actually dehydrated, however , watch for pulmonary edema with fluids - DVT prophylaxis: Level of Care Telemetry Advanced Directives Existing Advance Directive: Yes Resuscitation Status DO NOT RESUSCITATE VTE Prophylaxis VTE Risk Assessment Done? Y/N: Yes Risk Level: High Given or contraindicated: Unfractionated heparin SQ Additional Copies To Isauro Lange M.D.; Rehan Novak, DO
[2016-07-02] MEDS: ATORVASTATIN 40 MG TAB PO SCH (20:57)
[2016-07-02] MEDS: HEPARIN SOD 5000 UNIT/0.5 ML CARP SQ SCH (21:03)
[2016-07-02 23:51] VITALS: BP 102/58; PULSE 88; TEMP 36.9; O2SAT 94
[2016-07-03] VITALS (13 sets, daily range): BP systolic 88–100; BP diastolic 38–60; PULSE 87–91; TEMP 36.3–37.2; O2SAT 90–99
[2016-07-03] MEDS: PIPERACILL/TAZOBAC IV 3.375 GM in DEXTROSE 5% 100ML 100 ML IV SCH ×3 (00:31→23:34)
[2016-07-03 05:53] LABS: BASO % 0.1 %; BASO ABS # 0.01 K/uL (0-0.2); COMPLETE YES; ECHINOCYTES 1+; HEMATOCRIT 30.5 % (37-47); IG% 0.7 %; LYMPH ABS # 0.86 K/uL (1.2-3.4); MEAN CORPUSCULAR HEMOGLOBIN 33.1 pg (25-34); MEAN CORPUSCULAR HGB CONC 32.8 g/dl (32-36); MEAN PLATELET VOLUME 10.5 fL (7.4-10.4); MONO % 10.3 %; NEUT % 80.9 %; PLATELET COUNT 252 K/uL (130-400); RED BLOOD COUNT 3.02 M/uL (4.2-5.4); WHITE BLOOD COUNT 10.69 K/uL (4.8-10.8)
[2016-07-03] MEDS: SODIUM CHLORIDE 0.9% 1000ML 1,000 ML IV SCH ×2 (05:57→21:54)
[2016-07-03 06:00] LABS: CALCIUM 6.4 mg/dl (8.5-10.1); CKMB/CK RATIO 2.3 (0-3.0); CREATININE 2.8 mg/dl (0.60-1.20); MAGNESIUM 2.3 mg/dl (1.8-2.4); PHOSPHORUS 6.4 mg/dl (2.5-4.9); POTASSIUM 3.8 mmol/L (3.5-5.1)
[2016-07-03] MEDS: CLOPIDOGREL BISULFATE 75 MG TAB PO SCH (08:34)
[2016-07-03] MEDS: ASPIRIN 81 MG ECTAB PO SCH (08:34)
[2016-07-03] MEDS: HEPARIN SOD 5000 UNIT/0.5 ML CARP SQ SCH ×2 (08:46→20:21)
--- NOTE | 2016-07-03 09:28 | Hospitalist Progress Note ---
Hospitalist Progress Note Date of Service Jul 03, 2016. (Fani Fatima ., PA-C) Subjective Pt evaluation today including: conversation w/ patient, conversation w/ family (Daughters ), physical exam, chart review, lab review, review of studies, review of inpatient medication list Voiding: concepcion catheter in place Patient reports no improved in symptoms since admission. NPO status. +diarrhea. +weakness/fatigue. +vomiting. +chronic muscle/joint pain secondary to arthritis - denies need for pain medications at this time. Erythremic right eye- patient denies any discomfort/itchiness/drainage. Patient denies any fever, chills, sweats, lightheadedness, dizziness, vision changes, CP, palpitations, edema, SOB , wheezing, cough, abdominal pain, nausea, urinary symptoms, melena, numbness/ tingling, anxiety/depression, active bleeding, or new skin discoloration/ changes. According to daughter, patient seems improved mentally/physically since admission. (Fani Fatima ., PA-C) Medications Current Inpatient Medications Medications (Trade) Dose Ordered Sig/Nicko Route Start Time Stop Time Status Last Admin Dose Admin Heparin Sodium (Porcine) 5000 unit 5,000 unit Q12 SQ 07/02/16 21:00 08/01/16 20:59 07/02/16 21:03 5,000 UNIT Sodium Chloride (Nss 1000ml) 1,000 ml @ 80 mls/hr [id number] IV 07/02/16 16:16 08/01/16 16:15 07/03/16 05:57 80 MLS/HR Acetaminophen (Tylenol Tab) 650 mg Q4H PRN PO 07/02/16 16:30 08/01/16 16:29 Ondansetron HCl (Zofran Inj) 4 mg Q6H PRN IV 07/02/16 16:30 08/01/16 16:29 Aspirin (Ecotrin Tab) 81 mg DAILY PO 07/03/16 09:00 08/02/16 08:59 Atorvastatin Calcium (Lipitor Tab) 80 mg HS PO 07/02/16 21:00 08/01/16 20:59 Clopidogrel Bisulfate 75 mg 75 mg QAM PO 07/03/16 09:00 08/02/16 08:59 Piperacillin Sod/ Tazobactam Sod/ Dextrose (Zosyn Iv/D5 100ml) 115 ml @ 28.75 mls/ hr Q12@0000,1200 IV 07/03/16 00:00 07/05/16 00:00 07/03/16 00:31 28.75 MLS/HR Vancomycin HCl (Consult) 1 ea UD PRN N/A 07/02/16 17:15 08/01/16 17:14 Piperacillin Sod/ Tazobactam Sod (Consult) 1 ea UD PRN N/A 07/02/16 17:15 08/01/16 17:14 (Fani Fatima, PA-C) Objective Vital Signs Date Time Temp Pulse Resp B/P Pulse Ox O2 Delivery O2 Flow Rate FiO2 07/03/16 08:12 36.5 89 18 100/50 97 Nasal Cannula 4.0 07/03/16 04:07 36.5 90 22 91/38 92 Nasal Cannula 4.0 07/03/16 04:00 90 Nasal Cannula 4.0 07/03/16 00:00 90 Nasal Cannula 4.0 07/02/16 23:51 36.9 88 20 102/58 94 Nasal Cannula 4.0 07/02/16 20:00 90 Nasal Cannula 4.0 07/02/16 19:21 36.4 95 26 90 Nasal Cannula 4.0 07/02/16 18:49 91 Nasal Cannula 4.0 07/02/16 17:58 36.5 60 20 90/55 Nasal Cannula 2.0 07/02/16 17:28 93 25 133/56 96 07/02/16 17:07 93 25 133/56 96 Room Air 07/02/16 14:30 90 18 76/39 96 Nasal Cannula 2.0 07/02/16 14:15 93 Room Air 07/02/16 14:10 36.9 91 23 69/50 93 Room Air (Fani Fatima ., PA-C) Physical Exam General Appearance: no apparent distress, + pertinent finding (NG tube ) Eyes: PERRL, + pertinent finding (right inflammed conjuncitiva ) ENT: hearing grossly normal Neck: supple Respiratory/Chest: no respiratory distress, no accessory muscle use, + decreased breath sounds (bilateral lung bases ) Cardiovascular: regular rate, rhythm, + systolic murmur Abdomen: non tender, soft, + abnormal bowel sounds (hypoactive ) Extremities: no pedal edema, no calf tenderness Neurologic/Psychiatric: alert, normal mood/affect, oriented x 3, + pertinent finding (lethargic ) Skin: normal color, warm/dry, no rash (Fani Fatima, RADHA) Laboratory Results Last 24 Hours Test 07/02/16 14:50 07/02/16 14:56 07/02/16 16:12 07/02/16 16:48 White Blood Count 8.50 K/uL Red Blood Count 3.78 M/uL Hemoglobin 12.6 g/dL Hematocrit 37.7 % Mean Corpuscular Volume 99.7 fL Mean Corpuscular Hemoglobin 33.3 pg Mean Corpuscular Hemoglobin Concent 33.4 g/dl Platelet Count 299 K/uL Mean Platelet Volume 10.7 fL Neutrophils (%) (Auto) 74.0 % Lymphocytes (%) (Auto) 11.6 % Monocytes (%) (Auto) 14.0 % Eosinophils (%) (Auto) 0.0 % Basophils (%) (Auto) 0.0 % Neutrophils # (Auto) 6.29 K/uL Lymphocytes # (Auto) 0.99 K/uL Monocytes # (Auto) 1.19 K/uL Eosinophils # (Auto) 0.00 K/uL Basophils # (Auto) 0.00 K/uL RDW Standard Deviation 52.1 fL RDW Coefficient of Variation 14.4 % Immature Granulocyte % (Auto) 0.4 % Immature Granulocyte # (Auto) 0.03 K/uL Prothrombin Time 11.4 SECONDS Prothromb Time International Ratio 1.1 Activated Partial Thromboplast Time 28.9 SECONDS Partial Thromboplastin Ratio 1.1 Sodium Level 135 mmol/L Potassium Level 4.4 mmol/L Chloride Level 92 mmol/L Carbon Dioxide Level 27 mmol/L Anion Gap 16.0 mmol/L Blood Urea Nitrogen 111 mg/dl Creatinine 4.10 mg/dl Est Creatinine Clear Calc Drug Dose 9.2 ml/min Estimated GFR () 11.0 Estimated GFR (Non- 9.5 BUN/Creatinine Ratio 27.1 Random Glucose 108 mg/dl Calcium Level 8.1 mg/dl Magnesium Level 2.5 mg/dl Total Bilirubin 0.5 mg/dl Aspartate Amino Transf (AST/SGOT) 33 U/L Alanine Aminotransferase (ALT/SGPT) 19 U/L Alkaline Phosphatase 90 U/L Total Creatine Kinase 662 U/L Troponin I 0.034 ng/ml Total Protein 7.4 gm/dl Albumin 3.6 gm/dl Globulin 3.8 gm/dl Albumin/Globulin Ratio 0.9 Procalcitonin 17.04 ng/ml Bedside Lactic Acid Venous 3.63 mmol/L Bedside Blood Gas pH (LAB) 7.39 Bedside Blood Gas pCO2 (LAB) 37 mmHg Bedside Blood Gas pO2 (LAB) 41 mmHg Bedside Blood Gas HCO3 (LAB) 22 meq/L Bedside Blood Gas Total CO2 23 mEq/l Bedside Blood Gas Base Excess (LAB) -3.0 meq/L Bedside Blood Gas O2 Saturation 76.0 % Urine Color ORANGE Urine Appearance CLOUDY Urine pH 5.0 Urine Specific Hawkins 1.020 Urine Protein 2+ Urine Glucose (UA) NEG Urine Ketones TRACE Urine Occult Blood 2+ Urine Nitrite POS Urine Bilirubin NEG Urine Urobilinogen NEG Urine Leukocyte Esterase MODERATE Urine WBC (Auto) 1-5 /hpf Urine RBC (Auto) 0-4 /hpf Urine Hyaline Casts (Auto) 5-10 /lpf Urine Epithelial Cells (Auto) >30 /lpf Urine Bacteria (Auto) 4+ Urine Crystals TALC Urine Yeast (Auto) Test 07/02/16 18:55 07/02/16 21:22 07/02/16 22:16 07/03/16 05:09 Sodium Level 139 mmol/L 146 mmol/L Potassium Level 3.9 mmol/L 3.8 mmol/L Chloride Level 101 mmol/L 111 mmol/L Carbon Dioxide Level 24 mmol/L 25 mmol/L Anion Gap 14.0 mmol/L 10.0 mmol/L Blood Urea Nitrogen 101 mg/dl 92 mg/dl Creatinine 3.30 mg/dl 2.80 mg/dl Est Creatinine Clear Calc Drug Dose 11.5 ml/min 13.6 ml/min Estimated GFR () 14.3 17.5 Estimated GFR (Non- 12.4 15.1 BUN/Creatinine Ratio 30.5 33.0 Random Glucose 111 mg/dl 97 mg/dl Lactic Acid Level 2.2 mmol/L Calcium Level 6.7 mg/dl 6.4 mg/dl Total Creatine Kinase U/L 1105 U/L 1227 U/L Creatine Kinase MB 26.8 ng/ml 28.5 ng/ml Creatine Kinase MB Ratio 2.3 Troponin I 0.050 ng/ml 0.046 ng/ml White Blood Count 10.69 K/uL Red Blood Count 3.02 M/uL Hemoglobin 10.0 g/dL Hematocrit 30.5 % Mean Corpuscular Volume 101.0 fL Mean Corpuscular Hemoglobin 33.1 pg Mean Corpuscular Hemoglobin Concent 32.8 g/dl Platelet Count 252 K/uL Mean Platelet Volume 10.5 fL Neutrophils (%) (Auto) 80.9 % Lymphocytes (%) (Auto) 8.0 % Monocytes (%) (Auto) 10.3 % Eosinophils (%) (Auto) 0.0 % Basophils (%) (Auto) 0.1 % Neutrophils # (Auto) 8.65 K/uL Lymphocytes # (Auto) 0.86 K/uL Monocytes # (Auto) 1.10 K/uL Eosinophils # (Auto) 0.00 K/uL Basophils # (Auto) 0.01 K/uL RDW Standard Deviation 54.4 fL RDW Coefficient of Variation 14.8 % Immature Granulocyte % (Auto) 0.7 % Immature Granulocyte # (Auto) 0.07 K/uL Echinocytes 1+ Phosphorus Level 6.4 mg/dl Magnesium Level 2.3 mg/dl Total Bilirubin 0.4 mg/dl Direct Bilirubin 0.2 mg/dl Aspartate Amino Transf (AST/SGOT) 54 U/L Alanine Aminotransferase (ALT/SGPT) 22 U/L Alkaline Phosphatase 62 U/L Total Protein 5.7 gm/dl Albumin 2.7 gm/dl Random Vancomycin Level 20.9 mcg/ml (Fani Fatima, PA-C) Assessment and Plan 80 yo female presenting with weakness, vomiting, diarrhea x 4 days, found to have PARAS and lactic acidosis on lab work and partial SBO on CT scan: Partial SBO: - Admit to tele for cardiac monitoring--> reviewed- no acute events - Cardiac enzymes trend- peak trop 0.050 - NGT to low intermittent suctions, KUB tomorrow, could consider clamp trial when improved - IV Zofran - NPO except meds - KUB pending - Consult general surgery, appreciate recommendations Chronic systolic HF/CAD with h/o IQRA: - Admit to tele for cardiac monitoring--> reviewed- no acute events - Cardiac enzymes trend- peak trop 0.050 - ECHO pending - Hydrate cautiously - Resume ASA, Plavix, and Coreg once tolerating PO intake PARAS w/ Cr of 4/1 on admission, likely secondary to dehydration- IMPROVING: - Treat w/ IVF cautiously due to h/o systolic HF - Concepcion placed to monitor UO - Avoid nephrotoxic agents- held Lisinopril - Hold Bumex and Aldactone due to dehydration Lactic acidosis of 3.63 on admission, likely secondary to dehydration/UTI: - Repeat lactic acid- 2.2 - IV Vancomycin x1 dose + continued IV Zosyn - CXR- no acute process - UCx pending - BCx- gram negative bacilli x1, 2nd culture pending- continue antibiotics at this time, ?contamination vs. bacteremia, ?secondary to UTI - Elevated CPK, ?secondary to infection vs renal failure vs muscle injury- treat w/ IVF and continue to trend - Enlarging AAA: she says she had a repair at [facility] years ago- now on CT the AAA is > 6cm in diameter: - Consult vascular surgery, appreciate recommendations -- No intervention at this time Diarrhea: - C.diff negative - Stool studies pending - Magnesium WNL UTI POA: - UCx pending - Coverage w/ IV antibiotics as above Hypotension- patient has known subclavian stenosis which causes peripheral pressures to read 50mmHg lower than actual pressures: - Hold Norvasc, Lisinopril Hypothyroidism: Resume Synthroid once tolerating PO intake Dyslipidemia: Atorvastatin held secondary to elevate CPK Arthritis: Resume Tramadol once tolerating PO intake DVT prophylaxis: Heparin Code Status: LEVEL V, DNR Dispo: - Discharge uncertain at this time - PT/OT evaluations once status improves (Fani Fatima ., PA-C) PA Physician Supervision Note: I interviewed and examined the patient. Discussed with Fani Harmon PAC and agree with findings and plan as documented in the note. Any exceptions or clarifications are listed here: None 80 yo F Partial SBO, PARAS Partial SBO: NGT to low intermittent suctions,clamp ngt for cardiac meds given history, general surgery to follow Chronic systolic HF/CAD with h/o IQRA:ECHO pending ASA, Plavix, and Coreg PARAS - IMPROVING: held Lisinopril Bumex and Aldactone due to dehydration UTI poa Vancomycin x1 dose + continued IV Zosyn - BCx- gram negative bacilli x1 - Enlarging AAA: she says she had a repair at [facility] years ago- now on CT the AAA is > 6cm in diameter: - Consult vascular surgery, No intervention at this time Diarrhea:- C.diff negative- Stool studies pending Hypotension- patient has known subclavian stenosis which causes peripheral pressures to read 50mmHg lower than actual pressures: - Hold Norvasc, Lisinopril Dyslipidemia: Atorvastatin held secondary to elevate CPK DVT prophylaxis: Heparin renal dose adjustment Code Status: LEVEL V, DNR pt was lethargic but with awakening was complaining of some pain, will continue parenteral pain meds vitals with lower blood pressure but cannot predict with subclavian stenosis car is regular with murmur lungs are clear abd is hyperactive, soft non tender Documented By: Vickey Horne (Vickey Horne M.D.)
--- NOTE | 2016-07-03 09:47 | Clinical Documentation Query ---
CLINICAL DOCUMENTATION QUERY Ms. PARK, In your clinical opinion does this patient have: ( X ) Chronic kidney disease, stage 3 ( ) Other explanation of clinical findings (Please Explain) ( ) Unable to determine (Please Define) ( ) Need to Discuss ( ) Not Agree The medical record reflects the following clinical findings, treatment, and risk factors. Clinical Indicators: 80 yo female presenting with PRAAS and SBO. Review of historical data showed GFR range of 44.9-54.1 over the past 2 years. Treatment:monitor PRP's, treat comorbid conditions Risk Factors: age, chronic systolic CHF, CAD, HTN, Please clarify and document your clinical opinion in the progress notes and discharge summary. Terms such as "probable", "suspected", "likely", "questionable", "possible", or "still to be ruled out" are acceptable. IF IN AGREEMENT, YOU MUST DOCUMENT ABOVE DIAGNOSTIC STATEMENT IN DAILY PROGRESS NOTES AND DISCHARGE SUMMARY. This document is not part of the patient's record. Thank You, Jena Hernandez, RIMA [phone]
--- NOTE | 2016-07-03 09:48 | Clinical Documentation Query ---
CLINICAL DOCUMENTATION QUERY Dr. JIMENEZ, In your clinical opinion does this patient have: ( xx) Chronic kidney disease, stage 3 ( ) Other explanation of clinical findings (Please Explain) ( ) Unable to determine (Please Define) ( ) Need to Discuss ( ) Not Agree The medical record reflects the following clinical findings, treatment, and risk factors. Clinical Indicators: 80 yo female presenting with PARAS and SBO. Review of historical data showed GFR range of 44.9-54.1 over the past 2 years. Treatment:monitor PRP's, treat comorbid conditions Risk Factors: age, chronic systolic CHF, CAD, HTN, Please clarify and document your clinical opinion in the progress notes and discharge summary. Terms such as "probable", "suspected", "likely", "questionable", "possible", or "still to be ruled out" are acceptable. IF IN AGREEMENT, YOU MUST DOCUMENT ABOVE DIAGNOSTIC STATEMENT IN DAILY PROGRESS NOTES AND DISCHARGE SUMMARY. This document is not part of the patient's record. Thank You, Jena Hernandez, RN [phone]
--- NOTE | 2016-07-03 12:42 | Surgery Consultation ---
Consultation Date of Service Jul 03, 2016. Chief Complaint Thoracic AA, previous hx of AAA repair History of Present Illness The patient is a 80 year old female with multiple medical problems, s/p EVAR [place] [address] Franklin Araujo at [facility], seen in consultation today for Thoracic AA over 6cm by CT scan. Pt has been seeing Dr Shemar Shepherd at [facility] since Dr Araujo retired and has a f/u appt for carotid stenosis and her EVAR in October 2016. States has been feeling generally ill over past few days, severe nausea/vomiting/ diarrhea, and came to [facility] for eval. Had similar episode last year and was sent to [facility] at that time with SBO. Pt admits fatigue, malaise, DURANT. Denies RICO , fever, chills, chest pain, rest pain, claudication, other complaints. Pt and family state no prior knowledge of the thoracic AA. Vitals Vital Signs Past 12 Hours Date Time Temp Pulse Resp B/P Pulse Ox O2 Delivery O2 Flow Rate FiO2 07/03/16 08:12 36.5 89 18 100/50 97 Nasal Cannula 4.0 07/03/16 04:07 36.5 90 22 91/38 92 Nasal Cannula 4.0 07/03/16 04:00 90 Nasal Cannula 4.0 Allergies Coded Allergies: Ramipril (Verified Allergy, Unknown, Cough, 07/02/16) Home Medications Scheduled Acetaminophen (Tylenol), 2 TAB PO Q6 Amlodipine Besylate (Norvasc), 2.5 MG PO QAM Aspirin (Aspirin Ec), 81 MG PO DAILY Atorvastatin (Lipitor), 80 MG PO HS Bumetanide (Bumex), 1.5 MG PO QAM Carvedilol (Coreg), 1 TAB PO BID Cholecalciferol (Vitamin D3), 1 CAP PO HS Clopidogrel (Plavix), 75 MG PO QAM Levothyroxine Sodium (Synthroid), 125 MCG PO QAM Olmesartan Medoxomil (Benicar), 20 MG PO QAM Spironolactone (Aldactone), 25 MG PO QAM Scheduled PRN Nitroglycerin (Nitrostat), 0.4 MG UT PRN PRN for Chest Pain Tramadol (Ultram), 1-2 TAB PO Q4 PRN for Pain Trazodone Hcl (Trazodone), 25 MG PO HS PRN for Sleep Problem List Medical Problems: (1) Acute exacerbation of CHF (congestive heart failure) (2) CHF (congestive heart failure) (3) Hypoxia (4) TIA (transient ischemic attack) Surgical / Medical History Hx Cardiac Surgery: Yes (AAA RESECTION, LEFT CAROTID ENDARTERECTOMY, HEART CATH -3 STENTS) Hx Abdominal Surgery: Yes (AAA repair) Hx Cancer Surgery: No Hx Thoracic Surgery: No Hx Orthopedic: Yes (RT KNEE ARTHROSCOPY, SI JOINT INJECTIONS) Hx Urinary Tract Surgery: No HX Other Surgery: Yes Past Medical/Surgical History: CHF, Heart Disease, High Cholesterol, Hypertension, Kidney Disease Family History No pertinent family history Social History Smoking Status: Never Smoker Hx Tobacco Use In Past Year?: No Hx Alcohol Use - Type & Amnt: No Hx Substance Use -Type & Amnt: No Review of Systems Constitutional: + malaise, No chills, No fever Skin: No change in color Eyes: No visual changes ENMT: No sore throat Respiratory: + DURANT, No cough, No hemoptysis, No short of breath Cardiovascular: No chest pain, No edema, No intermittent claudication, No palpitations, No syncope Gastrointestinal: + abdominal pain, + diarrhea, + nausea, + vomiting Genitourinary - Female: No dysuria, No hematuria Neurologic: + lethargy, + weakness, No dizziness, No headache Physical Exam Constitutional: General Apperance: well-nourished, well-developed, too thin Level of Distress: NAD, acutely ill, chronically ill Psychiatric: Mental Status: active & alert, normal mood, normal affect Orientation: oriented except where noted, to time, to place, to person Memory: recent memory normal, remote memory normal Head: normocephalic, atraumatic Eyes: EOM: EOMI ENMT: normal ENT inspection, hearing grossly normal Neck: supple, trachea midline Lungs: Respiratory effort: no dyspnea Auscultation: no rales/crackles, no rhonchi, decreased breath sounds Cardiovascular: Apical Impulse: not displaced Heart Auscultation: RRR, no rubs, no gallops Peripheral Pulses: Pulses: full and equal, in all extremities except if noted Bruits: none appreciated Carotid Pulse: normal on the left, normal on the right Brachial Pulses: normal on the left, normal on the right Radial Pulse: normal on the left, normal on the right Femoral Pulse: normal on the left, normal on the right Posterior Tibialis Pulse: decreased on the left, decreased on the right Dorsalis Pedis Pulse: decreased on the left, decreased on the right Abdomen: Bowel Sounds: normal Inspection & Palpation: soft, pertinent finding (+ generalized tenderness) Musculoskeletal: normal tone Extremities: Upper Right: no cyanosis, no edema, no varicosities Upper Left: no cyanosis, no edema, no varicosities Lower Right: no cyanosis, no edema, no varicosities Lower Left: no cyanosis, no edema, no varicosities Neurologic: Cranial Nerves: grossly intact Sensation: grossly intact Assessment and Plan ASSESSMENT and PLAN: Thoracic AA 6cm Hx of EVAR Pt's EVAR appears stable, while her thoracic AA does appear increased in size(over 6cm) from the 2015 CT scan (5cm), which is within acceptable growth rate. Pt imaging reviewed by Dr Carballo, who also examined the pt today. Pt's family was present. No indications for urgent vascular surgical intervention at this time d/t current illness and significant comorbidities. Recommend that pt be reevaluated at her next [facility] vascular appt with Dr Shepherd in 10/29. Imaging studies will be sent for Dr Shepherd's review. Please call if needed.
[2016-07-03] MEDS: LEVOTHYROXINE 125 MCG TAB PO SCH (12:44)
--- NOTE | 2016-07-03 13:10 | DIAGNOSTIC IMAGING REPORT ---
KUB CLINICAL HISTORY: Partial SBO COMPARISON STUDY: CT scan dated 07/02/2016 FINDINGS: There is elevation right hemidiaphragm. There is a lumbar scoliosis. There is a nasogastric tube within the stomach. There is no pathologic bowel dilatation. IMPRESSION: 1. Nasogastric tube within the stomach 2. No evidence of pathologic bowel dilatation Electronically signed by: Quentin Miller M.D. 07/03/2016 1:08 PM Dictated Date/Time: 07/03/2016 1:08 PM
--- NOTE | 2016-07-03 14:28 | ECHOCARDIOGRAM REPORT ---
*NOTICE TO RECEIVING REPUBLICAN AGENCY This information is strictly Confidential and protected under [place] law. [place] law prohibits you from making any further disclosure of this information unless further disclosure is expressly permitted by the written consent of the person to whom it pertains or is authorized by law. A general authorization for the release of medical or other information is not sufficient for this purpose. Hospital accepts no responsibility if the information is made available to any other person, INCLUDING THE PATIENT. Interpretation Summary * Name: OTILIO ORNELAS Study Date: 07/03/2016 06:34 AM BP: 91/38 mmHg * Patient Location: [id number].2E\S\E207\S\1 HR: 92 * : 1935 (M/d/yyyy) Gender: Female Height: 62 in * Age: 80 yrs Ethnicity: [place] Weight: 139 lb * Ordering Physician: Sergo Hurd * Referring Physician: Self, Referred * Performed By: Patricia Lynch RCS * * Reason For Study: ST DEPRESSION / H/O CHF * BSA: 1.6 m2 * -- Conclusions -- * 1. Small LV cavity size. Mild concentric LVH. * 2. LVEF 55-60%. Inferior, posterior severe hypokinesis involving base to mid segments. * 3. Normal RV size and function. * 4. Mild aortic stenosis. Trace AI * 5. Mild mitral regurgitation. * 6. Compared with prior study on 08/11/2015: LV function is improved. Aortic stenosis and mitral regurgitation appear more mild today. Procedure Details * A complete two-dimensional transthoracic echocardiogram was performed (2D, M-mode, Doppler and color flow Doppler). * The study was technically difficult. * There were technical limitations due to patient'spoor positioning Left Ventricle * The left ventricular cavity is small. * There is mild concentric left ventricular hypertrophy. * Ejection Fraction = 55-60%. * There is severe posterior wall hypokinesis. * There is severe inferior wall hypokinesis. Right Ventricle * The right ventricle is grossly normal size. * The right ventricular systolic function is normal as assessed by tricuspid annular plane systolic excursion (TAPSE) (normal >1.5 cm). Atria * The left atrium is severely dilated. * The right atrium is mildly dilated. * No ASD detected; PFO is not assessed. Mitral Valve * There is moderate to severe mitral annular calcification. * There is no mitral valve stenosis. * There is mild mitral regurgitation. Tricuspid Valve * The tricuspid valve is not well visualized. * There is no tricuspid stenosis. * There is trace tricuspid regurgitation. Aortic Valve * Mild valvular aortic stenosis. * Trace aortic regurgitation. Pulmonic Valve * The pulmonary valve is not well seen, but the Doppler examination is normal without significant regurgitation or stenosis. Great Vessels * The aortic root and proximal ascending aorta are normal sized. Pericardium/Pleural * There is no pericardial effusion. Great Vessels * IVC 2.1, < 50% change with respiration. Estimated RA pressure 8 mmHg. MMode 2D Measurements and Calculations IVSd 1.1 cm IVSs 1.4 cm LVIDd 4.0 cm LVIDs 2.7 cm LVPWd 1.0 cm LVPWs 1.2 cm IVS/LVPW 1.1 FS 33.0 % EDV(Teich) 71.0 ml ESV(Teich) 26.9 ml EF(Teich) 62.0 % EDV(cubed) 65.1 ml ESV(cubed) 19.6 ml EF(cubed) 69.9 % % IVS thick 22.6 % % LVPW thick 16.2 % LV mass(C)d 142.9 grams LV mass(C)dI 87.2 grams/m\S\2 LV mass(C)s 106.5 grams LV mass(C)sI 65.0 grams/m\S\2 SV(Teich) 44.0 ml SI(Teich) 26.9 ml/m\S\2 SV(cubed) 45.5 ml SI(cubed) 27.8 ml/m\S\2 Ao root diam 3.6 cm Ao root area 10.3 cm\S\2 LVOT diam 2.1 cm LVOT area 3.4 cm\S\2 Doppler Measurements and Calculations MV E max jessy 93.8 cm/sec MV A max jessy 159.6 cm/sec MV E/A 0.59 MV P1/2t max jessy 93.0 cm/sec MV P1/2t 81.8 msec MVA(P1/2t) 2.7 cm\S\2 MV dec slope 333.1 cm/sec\S\2 MV dec time 0.37 sec Ao V2 max 251.9 cm/sec Ao max PG 25.4 mmHg Ao max PG (full) 22.1 mmHg Ao V2 mean 180.6 cm/sec Ao mean PG 14.0 mmHg Ao V2 VTI 48.1 cm CLINT(V,A) 1.2 cm\S\2 CLINT(V,D) 1.2 cm\S\2 AI max jessy 367.8 cm/sec AI max PG 54.1 mmHg AI dec slope 133.0 cm/sec\S\2 AI P1/2t 809.9 msec LV V1 max PG 3.3 mmHg LV V1 max 90.6 cm/sec MR max jessy 564.7 cm/sec MR max PG 127.5 mmHg SV(Ao) 496.3 ml SI(Ao) 303.1 ml/m\S\2 PA V2 max 104.8 cm/sec PA max PG 4.4 mmHg TR max jessy 290.7 cm/sec
[2016-07-04] VITALS (32 sets, daily range): BP systolic 75–166; BP diastolic 54–100; PULSE 64–151; TEMP 36.4–36.7; O2SAT 83–100
[2016-07-04] MEDS: LEVOTHYROXINE 125 MCG TAB PO SCH (06:03)
[2016-07-04 06:58] LABS: BUN/CREATININE RATIO 36.9 (10-20); CALCIUM 7.8 mg/dl (8.5-10.1); CREATININE 1.6 mg/dl (0.60-1.20); POTASSIUM 3.5 mmol/L (3.5-5.1)
[2016-07-04] MEDS ORDERED: METOPROLOL TARTRATE 1 MG/ML VIAL ONE (07:50)
[2016-07-04] MEDS ORDERED: MAGNESIUM SULFATE 1GM / D5W 1 GM in PREMIXED IN D5W 100 ML IV ONE (08:00)
[2016-07-04] MEDS ORDERED: METOPROLOL TARTRATE 1 MG/ML VIAL IV PRN (08:00)
[2016-07-04] MEDS ORDERED: LORAZEPAM 2 MG/ML 1 ML VIAL IV PRN ×2 (08:00)
[2016-07-04] MEDS ORDERED: NSS + 20MEQ KCL 1000ML 1,000 ML IV SCH (08:00)
[2016-07-04] MEDS: LORAZEPAM 2 MG/ML 1 ML VIAL ONE ×2 (08:06→08:27)
[2016-07-04] MEDS ORDERED: DIGOXIN IV 250 MCG in SYRINGE 9 ML IV ONE (08:15)
[2016-07-04] MEDS ORDERED: FLUMAZENIL 0.1 MG/1 ML 10 ML VIAL IV STA (08:36)
[2016-07-04] MEDS: FLUMAZENIL 0.1 MG/1 ML 10 ML VIAL - CCU EMERGENCY DRUG IV ONE ×2 (08:54→09:00)
[2016-07-04] MEDS: ASPIRIN 81 MG ECTAB PO SCH (09:00)
[2016-07-04] MEDS: CLOPIDOGREL BISULFATE 75 MG TAB PO SCH (09:00)
[2016-07-04] MEDS: HEPARIN SOD 5000 UNIT/0.5 ML CARP SQ SCH (09:00)
[2016-07-04] MEDS ORDERED: SODIUM CHLORIDE 0.9% 1000ML 1,000 ML IV SCH (09:45)
--- NOTE | 2016-07-04 09:52 | History and Physical ---
History & Physical Date & Time of Service: Jul 04, 2016 at 09:35 Chief Complaint: Acute Renal Failure, Lactic Acidosis Primary Care Physician: Isauro Lange M.D. History of Present Illness Source: patient 80 yo female with extensive cardiac history detailed below presents today c/o feeling ill for several days. She reports that she has had diarrhea, averaging 4 loose stools every day for the past few days. No bloody diarrhea that she has seen. She also has been vomiting and has been unable to keep anything down for the past few days. She has not taken any medications for 2 days. She denies severe abdominal pain and she recalls that when she had SBO in 2016 she had similar symptoms. She c/o profound fatigue and weakness and chills. No documented fevers. She has not made any urine yet today in 8 hours. She denies chest pain and shortness of breath. Nothing has improved her symptoms at home. In the ED she was found to be hypotensive initially with BP in the 60- 70's systolic. The patient says that she has subclavian stenosis that always makes her BP lower in her extremities. CXR and CT head were unremarkable. Her BMP showed marked elevated in her BUN at 111 as well as Cr at 4.1, baseline 1.0. Her lactic acid was 3.6 and procalcitonin was markedly elevated. She was started on broad spectrum antibiotics after cultures drawn and IV fluids initiated. We were asked to evaluated for admission. I was asked to consult NG output, pt just was moved to ICU for cardiac convert base on pt developed A-Fib. I asked pt, pt said she has no abdominal pain, NG- 900ml, some bloody. no N/V, no fever, Past Medical/Surgical History Medical Problems: (1) CHF (congestive heart failure) Status: Chronic (2) TIA (transient ischemic attack) Status: Chronic Family History No pertinent family history Social History Smoking Status: Never Smoker Alcohol Use: none Drug Use: none Occupational Status: unemployed Immunizations History of Influenza Vaccine: Yes Influenza Vaccine Date: Jan 12, 2013 History of Tetanus Vaccine?: Unknown History of Pneumococcal: Yes History of Hepatitis B Vaccine: Unknown Multi-Drug Resistant Organisms History of MDRO: No Allergies Coded Allergies: Ramipril (Verified Allergy, Unknown, Cough, 07/02/16) Home Medications Scheduled Acetaminophen (Tylenol), 2 TAB PO Q6 Amlodipine Besylate (Norvasc), 2.5 MG PO QAM Aspirin (Aspirin Ec), 81 MG PO DAILY Atorvastatin (Lipitor), 80 MG PO HS Bumetanide (Bumex), 1.5 MG PO QAM Carvedilol (Coreg), 1 TAB PO BID Cholecalciferol (Vitamin D3), 1 CAP PO HS Clopidogrel (Plavix), 75 MG PO QAM Levothyroxine Sodium (Synthroid), 125 MCG PO QAM Olmesartan Medoxomil (Benicar), 20 MG PO QAM Spironolactone (Aldactone), 25 MG PO QAM Scheduled PRN Nitroglycerin (Nitrostat), 0.4 MG UT PRN PRN for Chest Pain Tramadol (Ultram), 1-2 TAB PO Q4 PRN for Pain Trazodone Hcl (Trazodone), 25 MG PO HS PRN for Sleep Review of Systems Constitutional: No chills, No fatigue, No fever, No problem reported, No sweats , No weakness, No weight loss Eyes: No diplopia, No discharge, No eye pain, No problem reported, No redness, No worsening of vision Respiratory: No cough, No dyspnea at rest, No dyspnea on exertion, No hemoptysis, No problem reported, No shortness of breath, No sputum, No wheezing Cardiovascular: No PND, No chest pain, No claudication, No edema, No orthopnea , No palpitations, No problem reported Abdomen: No GI bleeding, No constipation, No diarrhea, No nausea, No pain, No problem reported, No vomiting Neurologic: + problem reported Physical Exam Vital Signs Date Time Temp Pulse Resp B/P Pulse Ox O2 Delivery O2 Flow Rate FiO2 07/04/16 08:56 177 07/04/16 07:53 177 126/69 07/04/16 07:29 36.7 94 24 126/69 95 5.0 07/04/16 04:36 36.4 92 18 86/58 95 Nasal Cannula 5.0 07/04/16 04:00 Nasal Cannula 4.0 07/03/16 23:59 Nasal Cannula 4.0 07/03/16 23:55 36.6 91 18 92/48 97 Nasal Cannula 5.0 07/03/16 20:00 90 Nasal Cannula 4.0 07/03/16 19:38 36.7 87 18 88/56 99 Nasal Cannula 3.0 07/03/16 16:21 94 3.0 07/03/16 16:00 94 Nasal Cannula 3.0 07/03/16 16:00 Nasal Cannula 3.0 07/03/16 15:13 36.3 90 18 92/58 94 Nasal Cannula 3.0 07/03/16 12:19 37.2 90 25 99/60 92 Nasal Cannula 2.0 07/03/16 12:15 92 Nasal Cannula 4.0 General Appearance: WD/WN, + mild distress, + thin Head: normocephalic, atraumatic Eyes: normal inspection, PERRL, EOMI, sclerae normal ENT: normal ENT inspection, hearing grossly normal, pharynx normal Neck: supple, no adenopathy, no JVD, trachea midline Respiratory/Chest: chest non-tender, lungs clear, no respiratory distress, no accessory muscle use Cardiovascular: no edema, no gallop, no JVD, normal peripheral pulses, + irregularly irregular Abdomen/GI: non tender (middle line scar, ), soft, no organomegaly Back: normal inspection, no CVA tenderness, no muscle spasm, normal range of motion Extremities/Musculoskelatal: normal inspection, no calf tenderness, normal capillary refill, no pedal edema, normal range of motion Neurologic/Psych: alert, normal mood/affect, normal reflexes, oriented x 3, + facial droop (left sided, chronic), + motor weakness (generalized) Skin: normal color, warm/dry, no rash Lymphatic: no adenopathy Diagnostics Laboratory Results Results Past 24 Hours Test 07/03/16 11:31 07/04/16 05:45 07/04/16 09:26 Range/Units Bedside Glucose 93 70-90 mg/dl Sodium Level 151 136-145 mmol/L Potassium Level 3.5 3.5-5.1 mmol/L Chloride Level 111 98-107 mmol/L Carbon Dioxide Level 28 21-32 mmol/L Anion Gap 12.0 3-11 mmol/L Blood Urea Nitrogen 59 7-18 mg/dl Creatinine 1.60 0.60-1.20 mg/dl Est Creatinine Clear Calc Drug Dose 23.4 ml/min Estimated GFR () 34.4 Estimated GFR (Non- 29.7 BUN/Creatinine Ratio 36.9 10-20 Random Glucose 85 70-99 mg/dl Calcium Level 7.8 8.5-10.1 mg/dl Total Creatine Kinase 803 26-192 U/L Diagnostic Radiology KUB-IMPRESSION: 1. Nasogastric tube within the stomach 2. No evidence of pathologic bowel dilatation CT scan abd + pelvis-IMPRESSION: 1. Above findings are consistent with a small bowel obstruction, likely a partial small bowel obstruction. A transition point is not clearly identified at this time. However, the distal ileal loops are slightly decompressed and could be mildly thickened in the setting of an ileitis. 2. 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 3. No change in the ventral hernias. These do not appear to result in the bowel obstruction. 4. Nonspecific ground glass densities within the right lung base which could be due to scarring or a pneumonitis. 5. Acute to subacute right anterior rib fractures. Impression Assessment and Plan IMP, possible partial SBO base pt has no abdominal pain, no signs GI obstruction now, conservative treatment, NG to low interment suction, H2 anne, once pt is stable, consult GI to R/O GI bleeding, will F/U Advanced Directives Existing Advance Directive: Yes Existing Living Will: Yes Existing Power of Hospital Medical Biller: Yes VTE Prophylaxis VTE Risk Assessment Done? Y/N: Yes Risk Level: High Given or contraindicated: Unfractionated heparin SQ
[2016-07-04] MEDS ORDERED: PANTOprazole INJ 80 MG in DEXTROSE 5% 100ML IV ONE (10:00)
[2016-07-04] MEDS ORDERED: ETOMIDATE 2 MG/ML 20 ML VIAL IV ONE (10:16)
[2016-07-04] MEDS ORDERED: AMIODARONE 150MG / 100ML D5W ONE (10:34)
[2016-07-04] MEDS ORDERED: AMIODARONE 360MG / 200ML D5W ONE (10:34)
[2016-07-04] MEDS: POTASSIUM CHLR 10 MEQ / WTR 10 MEQ in PREMIXED WATER 100 ML IV SCH ×3 (10:45→12:24)
[2016-07-04] MEDS: PANTOprazole INJ 40 MG in DEXTROSE 5% 100ML IV SCH ×3 (10:46→20:30)
[2016-07-04 10:50] LABS: ISTAT ARTERIAL BLOOD GAS HCO3 28 meq/L (19-24); ISTAT ARTERIAL BLOOD GAS PCO2 54 mmHg (35-46); ISTAT ARTERIAL BLOOD GAS PO2 71 mmHg (80-95); ISTAT ARTERIAL BLOOD GAS pH 7.32 (7.35-7.45); ISTAT CARBON DIOXIDE 29 mEq/l (24-31); ISTAT HEMATOCRIT 31 % (37-47); ISTAT HEMOGLOBIN 10.5 g/dl (12.0-16.0); ISTAT SODIUM 147 mEq/L (135-144)
[2016-07-04 10:56] LABS: HEMATOCRIT 35.6 % (37-47)
[2016-07-04] MEDS ORDERED: METOPROLOL TARTRATE 1 MG/ML VIAL IV. SCH (12:00)
--- NOTE | 2016-07-04 12:33 | DIAGNOSTIC IMAGING REPORT ---
AORTIC ULTRASOUND CLINICAL HISTORY: Aortic aneurysm COMPARISON STUDY: CT scan dated 07/02/2016 FINDINGS: The proximal to mid abdominal aorta measures 4.3 x 4.2 cm. The infrarenal abdominal aorta measures 3.3 x 2.9 cm. There is no iliac artery aneurysmal dilatation. IMPRESSION: Aneurysmal dilatation of the proximal abdominal aorta measuring 4.3 cm in diameter. Mild aneurysmal dilatation of the infrarenal abdominal aorta measuring 3.3 cm in maximal diameter. Electronically signed by: Quentin Miller M.D. 07/04/2016 12:31 PM Dictated Date/Time: 07/04/2016 12:26 PM
--- NOTE | 2016-07-04 12:33 | Medical Consult ---
Consultation Note Date of Service Jul 04, 2016. Consultation Note Reason for consult: UGIB History of Present Illness Source: 80 yo Female with PMH sig ASCVD, prior pSBO admit 07/02 with malaise, diarrhea, vomiting. Symptoms similar to her prior SBO. On presentation, she was markedly hypotensive; labs sig for ARF, lactic acidosis, elevated procalcitonin. CT on admission c/w pSBO. She was placed on NG drainage, broad spectrum abx; blood cultures grew GNR, thought to be due to urosepsis. She was tachycardic and lethargic this morning, underwent cardioversion and is currently on Bipap. I am consulted for possible UGIB. She was noted to have dark NG drainage this morning. Hgb in 06/2015 was 13, 12.6 on admission on 07/02, 11.6 this morning. She is on a PPI gtt. Past Medical/Surgical History Infrarenal open AAA repair with aortobifemoral grafting Juxtarenal suprarenal abdominal aortic aneurysms as well as thoracic, followed by Dr. 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 Chronic systolic congestive heart failure, apparently not previously hospitalized for this. Valvular heart disease (aortic stenosis felt to be [id number] in the past ) Sacroiliitis Hypertension (although listed as a problem, she notes that her blood pressures is generally 70-80 mmHg in her arms, but approximately 50 mm higher as a "core pressure" per prior central hemodynamics obtained at catheterization). Dyslipidemia Subclavian steal syndrome Elevated fasting glucose Spinal stenosis Toxic diffuse goiter Graves ophthalmopathy Decreased hearing Pulmonary hypertension Cerebrovascular accident without residual deficits Incisional hernia History of concussion Multiple small bowel obstructions. PAST SURGICAL HISTORY: 1. Abdominal aortic aneurysm repair and bifemoral arterial grafts. Family History FAMILY HISTORY:Mother at 80 hypertension, father 56 stroke, brother of lung cancer. Social History Smoking Status: Never Smoker Occupational Status: unemployed Immunizations History of Influenza Vaccine: Yes Influenza Vaccine Date: Jan 12, 2013 History of Tetanus Vaccine?: Unknown History of Pneumococcal: Yes History of Hepatitis B Vaccine: Unknown Multi-Drug Resistant Organisms History of MDRO: No Allergies Coded Allergies: Ramipril (Verified Allergy, Unknown, Cough, 07/02/16) Home Medications Scheduled Acetaminophen (Tylenol), 2 TAB PO Q6 Amlodipine Besylate (Norvasc), 2.5 MG PO QAM Aspirin (Aspirin Ec), 81 MG PO DAILY Atorvastatin (Lipitor), 80 MG PO HS Bumetanide (Bumex), 1.5 MG PO QAM Carvedilol (Coreg), 1 TAB PO BID Cholecalciferol (Vitamin D3), 1 CAP PO HS Clopidogrel (Plavix), 75 MG PO QAM Levothyroxine Sodium (Synthroid), 125 MCG PO QAM Olmesartan Medoxomil (Benicar), 20 MG PO QAM Spironolactone (Aldactone), 25 MG PO QAM Scheduled PRN Nitroglycerin (Nitrostat), 0.4 MG UT PRN PRN for Chest Pain Tramadol (Ultram), 1-2 TAB PO Q4 PRN for Pain Trazodone Hcl (Trazodone), 25 MG PO HS PRN for Sleep Review of Systems Constitutional: + chills, + fatigue, + weakness, No fever, No sweats, No weight loss Eyes: No diplopia, No discharge, No eye pain, No problem reported, No redness, No worsening of vision ENT: + hearing loss, No dental problems, No nasal symptoms, No problem reported , No sore throat, No tinnitus, No trouble swallowing, No unusual epistaxis Respiratory: No cough, No dyspnea at rest, No dyspnea on exertion, No hemoptysis, No shortness of breath, No sputum, No wheezing Cardiovascular: No PND, No chest pain, No claudication, No edema, No orthopnea Abdomen: + diarrhea (brown, liquid, no blood or tarry BM), + nausea, + vomiting (brown, bilious vomit, no blood), No GI bleeding, No constipation, No pain Musculoskeletal: No calf pain, No joint pain, No muscle pain, No problem reported, No swelling Genitourinary - Female: + problem reported (decrease urine output), No dysuria , No hematuria, No urinary frequency, No urinary incontinence, No urinary retention, No urinary urgency Neurologic: + weakness, No balance problems, No memory loss, No numbness/ tingling, No paralysis, No problem reported, No vertigo Psychiatric: No anhedonism, No anxiety, No depression symptoms, No insomnia, No problem reported, No substance abuse Endocrine: + fatigue, No excessive thirst, No excessive urination, No problem reported Hematologic / Lymphatic: No abnormal bleeding/bruising, No clotting problems, No night sweats, No problem reported, No swollen lymph nodes Integumentary: No bleeding, No color change, No itch, No new/changing skin lesions, No problem reported, No rash Allergic / Immunologic: No environmental allergies, No food allergies, No frequent infections, No hives, No pet sensitivities, No poor healing, No problem reported, No prolonged convalescence, No seasonal allergies Physical Exam Vital Signs Date Time Temp Pulse Resp B/P Pulse Ox O2 Delivery O2 Flow Rate FiO2 07/04/16 10:38 36.7 81 139/68 100 BiPAP 40 07/04/16 10:36 81 137/79 100 BiPAP 40 07/04/16 10:35 85 128/65 100 BiPAP 40 07/04/16 10:32 90 126/74 93 07/04/16 10:28 85 116/100 98 07/04/16 10:23 107 138/87 98 5.0 07/04/16 10:20 36.6 142 88/74 07/04/16 10:16 137 95/58 97 5.0 07/04/16 10:14 138 98/60 07/04/16 10:12 132 75/59 07/04/16 10:06 36.6 151 97/54 07/04/16 08:56 177 07/04/16 07:53 177 126/69 07/04/16 07:30 Nasal Cannula 4.0 07/04/16 07:30 93 Nasal Cannula 5.0 07/04/16 07:29 36.7 94 24 126/69 95 5.0 07/04/16 04:36 36.4 92 18 86/58 95 Nasal Cannula 5.0 07/04/16 04:00 Nasal Cannula 4.0 07/03/16 23:59 Nasal Cannula 4.0 07/03/16 23:55 36.6 91 18 92/48 97 Nasal Cannula 5.0 07/03/16 20:00 90 Nasal Cannula 4.0 07/03/16 19:38 36.7 87 18 88/56 99 Nasal Cannula 3.0 07/03/16 16:21 94 3.0 07/03/16 16:00 94 Nasal Cannula 3.0 07/03/16 16:00 Nasal Cannula 3.0 07/03/16 15:13 36.3 90 18 92/58 94 Nasal Cannula 3.0 General Appearance: Appears comfortable on BiPAP. Mildly incr WOB while providing history to me. Head: normocephalic, atraumatic Eyes: normal inspection, PERRL, EOMI, sclerae normal ENT: normal ENT inspection, hearing grossly normal, pharynx normal Neck: supple, no adenopathy, no JVD, trachea midline Respiratory/Chest: chest non-tender, lungs clear, + decreased breath sounds ( bases) Cardiovascular: no edema, no gallop, no JVD, normal peripheral pulses, + systolic murmur, + irregularly irregular Abdomen/GI: soft, no organomegaly, + tenderness (mild around the umbilicus), + abnormal bowel sounds (hypoactive), + distended Back: normal inspection, no CVA tenderness, no muscle spasm, normal range of motion Extremities/Musculoskelatal: normal inspection, no calf tenderness, normal capillary refill, no pedal edema, normal range of motion Skin: normal color, warm/dry, no rash Lymphatic: no adenopathy Rectal: yellow stool. Diagnostics Last 24 Hours Test 07/04/16 05:45 07/04/16 10:06 07/04/16 10:46 Sodium Level 151 mmol/L Potassium Level 3.5 mmol/L Chloride Level 111 mmol/L Carbon Dioxide Level 28 mmol/L Anion Gap 12.0 mmol/L Blood Urea Nitrogen 59 mg/dl Creatinine 1.60 mg/dl Est Creatinine Clear Calc Drug Dose 23.4 ml/min Estimated GFR () 34.4 Estimated GFR (Non- 29.7 BUN/Creatinine Ratio 36.9 Random Glucose 85 mg/dl Calcium Level 7.8 mg/dl Total Creatine Kinase 803 U/L Bedside Hemoglobin 10.5 g/dl Bedside Hematocrit 31 % Bedside Blood Gas pH (LAB) 7.32 Bedside Blood Gas pCO2 (LAB) 54 mmHg Bedside Blood Gas pO2 (LAB) 71 mmHg Bedside Blood Gas HCO3 (LAB) 28 meq/L Bedside Blood Gas Total CO2 29 mEq/l Bedside Blood Gas Base Excess (LAB) 2.0 meq/L Bedside Blood Gas O2 Saturation 92.0 % Bedside Sodium 147 mEq/L Bedside Potassium 3.5 mEq/L Hemoglobin 11.4 g/dL Hematocrit 35.6 % Lactic Acid Level 1.5 mmol/L Diagnostic Radiology ABDOMEN AND PELVIS CT WITHOUT CONTRAST CT DOSE: 276.47 mGy.cm HISTORY: Generalized ABDOMINAL PAIN, LACTIC ACIDOSIS, H/O SBO TECHNIQUE: Multiaxial CT images of the abdomen and pelvis were performed without contrast. COMPARISON STUDY: Abdomen and pelvis CT 07/06/2014. FINDINGS: Patchy groundglass densities within the base of the right lower lobe. The left lung base is clear. No pneumoperitoneum. No pneumatosis. Severe left hip osteoarthritis, unchanged. Levoscoliosis of the lumbar spine with degenerative change. Acute to subacute right anterior rib fractures. Mild inferior endplate compression deformity at T12 is likely old. Aneurysmal dilatation of the descending thoracic aorta measuring 6.6 x 5.4 cm. This is increased in size in the prior study when it measured up to 5.5 cm. There is additional right lateral saccular aneurysm at this location which measures 1.9 cm, previously measuring 1.7 cm. There is also aneurysmal dilatation of the proximal abdominal aorta measuring 4.2 cm, previous measuring 4.0 cm. The bladder is decompressed by a Díaz catheter. Fluid-filled colon. A short segment of the mid transverse colon is located within a ventral hernia. This is similar to the prior study. There are 2 stable hypodense lesions within the liver measuring up to 1 cm. These favor cysts. The gallbladder is mildly distended. The spleen, adrenal glands, and pancreas are unremarkable. Atrophic right kidney containing a 5.2 cm hypodense lesion. This remains stable and likely represents a cyst. 2 small hypodense lesions within the left kidney favor cysts. No hydronephrosis. Suboptimal evaluation for bowel pathology due to the lack of intravenous and oral contrast. There are distended loops of mid small bowel within the abdomen. These measure up to 4 m in diameter and likely represent a partial small bowel obstruction. These demonstrate air fluid levels. Distal ileal loops are slightly decompressed and could be mildly thickened. An exact transition point is difficult to identify at this time. There is also a small fat-containing midline ventral hernia, unchanged IMPRESSION: 1. Above findings are consistent with a small bowel obstruction, likely a partial small bowel obstruction. A transition point is not clearly identified at this time. However, the distal ileal loops are slightly decompressed and could be mildly thickened in the setting of an ileitis. 2. 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 3. No change in the ventral hernias. These do not appear to result in the bowel obstruction. 4. Nonspecific ground glass densities within the right lung base which could be due to scarring or a pneumonitis. 5. Acute to subacute right anterior rib fractures. CXR normal EKG sinus rhythm, ST depressions and TW changes lateral leads Impression Assessment and Plan UGIB - She is at high risk for endoscopy, and I suspect that her bleeding may be self limited (DDX = NG trauma? PUD?) . Would defer scope and follow. Please continue PPI GTT for 24 hours and transition to twice daily bolus PPI if no evidence of ongoing bleed. - Her SBO appears resolved - will speak to surgery service about ongoing need for NGT.
[2016-07-04] MEDS: PIPERACILL/TAZOBAC IV 3.375 GM in DEXTROSE 5% 100ML 100 ML IV SCH ×2 (12:52→20:29)
--- NOTE | 2016-07-04 13:57 | Progress Note ---
Subjective Date of Service: Jul 04, 2016. Subjective pt became critically unstable this am, afib rvr, hypotensive and acute respiratory failure, dark ng drainage and hgb drop attempts at controlling v rate for afib were unsuccessful, metoprolol 5 mg iv given, dig 0.250 mg given, fluid bolus, magnesium and potassium sedation initially with ativan proved too much and Romazicon given 0.2, but pt remained unstable, moved to ICU and synchronously cardioverted by Dr Reardon to nsr with resumption of blood pressure and improved ventilation, amiodarone gtt started pt does not remember events of this am daughters at bedside and updated Problem List Medical Problems: (1) Congestive heart failure Status: Acute (2) Dehydration Status: Acute (3) Hypotension Status: Acute (4) Lactic acidosis Status: Acute (5) Pulmonary edema Status: Acute (6) Sepsis Status: Acute (7) Stroke Status: Acute Review of Systems Constitutional: + fatigue, + weakness Respiratory: + dyspnea on exertion, + shortness of breath, No cough Cardiac: + edema, + palpitations, No chest pain Abdomen: + pain, No diarrhea, No nausea, No vomiting Neurologic: + memory loss, + weakness Psychiatric: + depression symptoms, No anhedonism Objective Vital Signs Date Time Temp Pulse Resp B/P Pulse Ox O2 Delivery O2 Flow Rate FiO2 07/04/16 07:53 177 126/69 07/04/16 07:29 36.7 94 24 126/69 95 5.0 07/04/16 04:36 36.4 92 18 86/58 95 Nasal Cannula 5.0 07/04/16 04:00 Nasal Cannula 4.0 07/03/16 23:59 Nasal Cannula 4.0 07/03/16 23:55 36.6 91 18 92/48 97 Nasal Cannula 5.0 07/03/16 20:00 90 Nasal Cannula 4.0 07/03/16 19:38 36.7 87 18 88/56 99 Nasal Cannula 3.0 07/03/16 16:21 94 3.0 07/03/16 16:00 94 Nasal Cannula 3.0 07/03/16 16:00 Nasal Cannula 3.0 07/03/16 15:13 36.3 90 18 92/58 94 Nasal Cannula 3.0 07/03/16 12:19 37.2 90 25 99/60 92 Nasal Cannula 2.0 07/03/16 12:15 92 Nasal Cannula 4.0 Physical Exam General Appearance: WD/WN, + severe distress Eyes: PERRL, EOMI Respiratory/Chest: + respiratory distress, + decreased breath sounds, + accessory muscle use Cardiovascular: + tachycardia, + irregularly irregular Abdomen: normal bowel sounds, soft Extremities: no pedal edema, no calf tenderness Neurologic/Psychiatric: alert, + disoriented Laboratory Results Last 24 Hours Test 07/03/16 11:31 07/04/16 05:45 Bedside Glucose 93 mg/dl Sodium Level 151 mmol/L Potassium Level 3.5 mmol/L Chloride Level 111 mmol/L Carbon Dioxide Level 28 mmol/L Anion Gap 12.0 mmol/L Blood Urea Nitrogen 59 mg/dl Creatinine 1.60 mg/dl Est Creatinine Clear Calc Drug Dose 23.4 ml/min Estimated GFR () 34.4 Estimated GFR (Non- 29.7 BUN/Creatinine Ratio 36.9 Random Glucose 85 mg/dl Calcium Level 7.8 mg/dl Total Creatine Kinase 803 U/L Assessment and Plan 80 yo F Partial SBO, PARAS developed Afib RVR requiring cardioversion due to instability of blood pressure ( cardiogenic shock) and respiratory distress, successfullly cardioverted Afib now nsr is on amiodarone, holding cored due to npo status, will use metoprolol iv Partial SBO: NGT to low intermittent suctions, ng output is dark and concerns for gib, ppi gtt, gastroenterology and general surgery to follow Chronic systolic HF/CAD with h/o IQRA:ECHO shows good EF and moderate MR ASA, Plavix, and B anne PARAS - IMPROVING: held Lisinopril Bumex and Aldactone due to dehydration, did have fluid bolus watch for fluid overload UTI poa Vancomycin x1 dose + continued IV Zosyn, proves to be E coli can streamline antiboitics - Enlarging AAA: she says she had a repair at [facility] years ago- now on CT the AAA is > 6cm in diameter: - Consult vascular surgery, No intervention at this time, repeat U/S 07/04 no enlargement or dissection noted subacute right rib fractures no pain at this time Diarrhea:- C.diff negative- Stool studies pending Hypotension- patient has known bilateral subclavian stenosis which causes peripheral pressures to read 50mmHg lower than actual pressures: but resumption of nsr from Afib helps pressure, in outpt record of Dr Lange, suspicion of PAF was discussed during last office visit Dyslipidemia: Atorvastatin held secondary to elevate CPK DVT prophylaxis: Heparin renal dose adjustment Code Status: LEVEL V, DNR 45 minutes critical care time spent at the bedside with this pt
[2016-07-04 15:04] LABS: HEMATOCRIT 31.4 % (37-47)
[2016-07-04 15:21] LABS: CALCIUM 7.3 mg/dl (8.5-10.1); CREATININE 1.4 mg/dl (0.60-1.20)
--- NOTE | 2016-07-04 15:46 | CRITICAL CARE CONSULTATION ---
DATE OF CONSULTATION: 07/04/2016 CHIEF COMPLAINT: Tachycardia. HISTORY OF PRESENT ILLNESS: The patient is an 80-year-old woman with multiple medical problems including but not limited to chronic systolic heart failure, suprarenal abdominal aortic aneurysm, coronary artery disease and hypertension. She presented to the Emergency Department on July 02 with nausea, vomiting and diarrhea for a few days. She was not taking p.o. very well and her daughter was concerned that she had a right facial droop as well as slurred speech. She has a history of CVA and underwent CT scan of the brain in the Emergency Department which showed no acute process. She was found to have an elevated lactate as well as acute kidney injury and hypotension. Of note, she has bilateral subclavian stenosis and her blood pressure is usually estimated to be about 50 mmHg higher than what the cuff will read. She was given Zosyn after blood cultures were obtained and was also noted to have a urinary tract infection. CT scan of the abdomen was significant for partial small-bowel obstruction as well as an increase in the size of the thoracoabdominal aortic aneurysm to 6.6 x 5.5 cm. There is also a right lateral saccular aneurysm at that location measuring 1.9 cm. She has ventral hernias on the CT scan as well as nonspecific ground-glass densities in the right base. At some point, an NG tube was placed for her small-bowel obstruction and Dr. Carballo was consulted. The patient was admitted to the floor and over her first hospital day did not have any further diarrhea. Last night evidently she slept poorly. Around 8:00 a.m. she went into atrial fibrillation with rapid ventricular response, heart rate of 177. She was given 5 of Lopressor as well as a normal saline bolus of 500 mL She received 0.25 mg of digoxin and 2 mg of Ativan, which made her very drowsy. She eventually received 0.2 mg of flumazenil and was brought to the intensive care unit for probable cardioversion. The patient has had an echocardiogram on this admission which shows an ejection fraction of 50%-55%, but also severe posterior wall and inferior wall hypokinesis. Her ejection fraction has been less than 55%-60% in the past. Dr. Reardon is also seeing her. Additionally, the echocardiogram from this admission reveals a left atrium, is severely dilated. I believe Dr. Reardon is going to review this echocardiogram himself. After the patient was transferred to the intensive care unit due to her drowsiness and arterial blood gas was drawn shows a pH of 7.32, pCO2 of 54, pO2 of 71, HCO3 of 28. Preparations were made for intubation surrounding the cardioversion. She was given etomidate 4 mg and shocked x1 with 120 joules. She was also given an amiodarone bolus and an amiodarone infusion. She was bagged for several minutes after the cardioversion and was placed on Bipap 12/5 40% once she had a gag reflex. I was unable to obtain any history directly from her due to her drowsiness. 2 daughters were at the bedside and were quite anxious about the events of the morning. PAST MEDICAL HISTORY: TIA, CVA, chronic systolic heart failure, abdominal aortic aneurysm status post infrarenal repair with aortobifemoral bypass, suprarenal, enlarging abdominal aortic aneurysm, coronary artery disease, status post LAD and RCA stents, hypertension, spinal stenosis, hypothyroidism, Graves' ophthalmopathy, the pulmonary hypertension, hyperlipidemia, and bilateral subclavian stenosis. PAST SURGICAL HISTORY: Status post infrarenal abdominal aortic aneurysm repair with aortobifemoral bypass status post left carotid endarterectomy and right knee arthroscopy. ALLERGIES: RAMIPRIL. OUTPATIENT MEDICATIONS: Acetaminophen 1 gram every 6 hours, Norvasc 2.5 mg q.a.m., aspirin 81 mg daily, atorvastatin 80 mg at bedtime, Bumex 1.5 mg every morning, carvedilol 3.125 mg b.i.d., vitamin D3 2000 IU nightly, Plavix 75 mg daily, Synthroid 125 mcg daily, Nitrostat p.r.n., Benicar 20 mg in the morning, spironolactone 25 mg every morning, tramadol 1-2 tablets q. 4 hours p.r.n., trazodone 25 mg p.o. at bedtime p.r.n. sleep. PRESENT MEDICATIONS: Acetaminophen 650 mg q.4 hours p.r.n., aspirin 81 mg on hold, Plavix 75 mg p.o. daily on hold, subcutaneous heparin 5000 units q. 12 hours, Ativan p.r.n., Lopressor 5 mg IV q. 6 hours p.r.n., Lopressor 5 mg q. 4 scheduled, Zofran p.r.n., Protonix infusion, Zosyn day 3, potassium. SOCIAL HISTORY: She has never smoked and does not drink any alcohol. FAMILY HISTORY: Noncontributory. REVIEW OF SYSTEMS: Not obtainable as patient is drowsy. PHYSICAL EXAMINATION: VITAL SIGNS: Temperature is 36.7, heart rate 81, respiratory rate 16, blood pressure 139/68 in the right leg, BiPAP 12/5, 40%. HEENT: Pupils are equally round and reactive to light. The right sclera is mildly injected. Oral exam is limited, but mouth is dry. I do not note a facial droop. There is an NG tube with some dark red and brown material in it. NECK: Shows distended external jugular veins. No adenopathy. No thyromegaly. LUNGS: Some rales in the bilateral bases. No rhonchi or wheezes. HEART: Regular rate and rhythm, 2/6 systolic murmur heard best at the apex. ABDOMEN: Soft, nondistended, nontender. Hypoactive bowel sounds. EXTREMITIES: Warm. I am unable to palpate any radial pulses. Femoral pulses are 1+. Dorsalis pedis pulses are not palpable. Capillary refill is less than 2 seconds. NEUROLOGIC: She will follow commands and awaken to a loud voice. She will begin to stay awake if she is stimulated, but then falls back asleep. She moves all 4 extremities. LABORATORY DATA: White blood cell count 10.69, hemoglobin 10, hematocrit 30.5, platelets 252. Follow up hemoglobin 11.4, sodium 151, potassium 3.5, chloride 111, CO2 of 28, BUN 59, creatinine 1.6, calcium 7.8. CPK 803. AST on 07/03/2016 at 54, phosphorus 6.4. Urinalysis from 07/02/2016 shows moderate leukocyte esterase, 2+ blood, positive nitrites. Urine culture 07/02/2016 shows pansensitive E. coli. Blood cultures one set with Gram-negative bacilli. The other set shows no growth. Imaging as previously discussed. IMPRESSION: 1. Atrial fibrillation with rapid ventricular response, status post cardioversion. 2. Hypercapnic respiratory failure, acute, likely secondary to the Ativan she received this morning. She is protecting her airway and comfortable on BiPAP. Mental status in improving. 3. Escherichia coli urinary tract infection with 1 set of blood cultures positive for Gram-negative rods. 4. Acute kidney injury, improving. 5. Metabolic encephalopathy secondary to #2. 6. Chronic systolic heart failure, volume depleted on admission. 7. Possible gastrointestinal bleed. GI service has been consulted. 8. Small-bowel obstruction, being followed by the surgery service. 9. Enlarging thoracoabdominal aortic aneurysm, Dr. Carballo has been consulted. Follow up ultrasound after the events of the morning pending. 10. History of bilateral subclavian stenosis. 11. History of abdominal aortic aneurysm repair with aortobifemoral bypass. PLAN: Neurologic: Hold all sedative medication. Follow neuro status. Pulmonary: Continue BiPAP 12/5, 40%. Aspiration precautions. Consider follow up ABG later today if her mental status does not continue to improve. Cardiovascular: Continue amiodarone infusion and follow up the ultrasound ordered today. I would decrease her Lopressor dose to 2.5 mg q. 6 hour. Hopefully, she will remain in normal sinus rhythm. Watch volume status very carefully. Infectious disease: Continue Zosyn for now secondary to possible small-bowel obstruction, but I think this can be deescalated to cephalosporin perhaps tomorrow. I would like to give the surgical service an opportunity to evaluate her further. Presently she is at risk for aspiration pneumonia as well. Gastrointestinal: Follow serial blood counts and continue Protonix infusion. I discussed her care with Dr. Simon and briefly with Dr. Harris. Maintain n.p.o. except meds. Follow NGT output. Renal: Consider changing fluids to D5W secondary to her hypernatremia. Replete electrolytes. Again, watch volume status carefully. Heme: Hold subcutaneous heparin and use SCDs for DVT prophylaxis. Plavix and aspirin are also being held in light of possible GIB. Miscellaneous: She has 3 peripheral IVs. Depending on how the day goes, consider central access. The patient's family was very anxious and upset this morning. I spent a lot of time in the room listening to them and explaining our plan for the day today. Questions were answered and support was provided. Critical care time 60 minutes. JULIET
[2016-07-04] MEDS: METOPROLOL TARTRATE 1 MG/ML VIAL IV. SCH ×3 (16:00→20:30)
--- NOTE | 2016-07-04 17:30 | Cardiology Consultation ---
Cardiology Consultation Date of Service Jul 04, 2016. Cardiology Consultation CARDIOLOGY CONSULTATION DATE OF CONSULTATION: July 04, 2016 REFERRING PHYSICIAN: Cheo Horne M.D. PRIMARY POTATO LOADER: Rehan Novak D.O. REASON FOR CONSULTATION: Atrial fibrillation with rapid ventricular response. SUBJECTIVE: 80 [id number] with coronary artery disease (status post remote stenting LAD/ RCA), chronic mild systolic congestive heart failure (on Bumex), some degree of aortic stenosis, and extensive vascular disease (AAA repair with current thoracoabdominal aneurysm, carotid endarterectomy, etc.) who was admitted 2016 with nausea, vomiting and diarrhea felt to be secondary to a partial small- bowel obstruction. No chest pain at any time. Earlier today she developed paroxysmal atrial fibrillation with rapid ventricular response. Review of an outpatient visit to Dr. Novak in March is notable for his observation that an episode of palpitations she had from around that time might well have been atrial fibrillation. Due to the fact that this dysrhythmia was not able to be captured and documented, anticoagulation was not pursued at that time. Upon developing rapid rate this morning her blood pressure, which usually is difficult to measure due to peripheral vascular disease, became unmeasurable. Simultaneously, she had some level of pre-existing confusion felt secondary to anxiety, however there was uncertainty as to whether she could be suffering from cerebral hypoperfusion as well. She was awake but confused and her extremities were not cool or diaphoretic, but given uncertainty regarding her perfusion pressure and the likelihood that she would be unable to tolerate sustained tachycardia (since there was not an initial response to IV beta- blockers and digoxin), the determination was made to proceed with elective but urgent electrical cardioversion. Electrical cardioversion was successful (see separate note), her rhythm subsequently was sinus in the 80 bpm range. No complications from the cardioversion or sedation (4 mg etomidate). PAST MEDICAL HISTORY: Infrarenal open AAA repair with aortobifemoral grafting Juxtarenal suprarenal abdominal aortic aneurysms as well as thoracic, followed by Dr. 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 Chronic systolic congestive heart failure, apparently not previously hospitalized for this. Valvular heart disease (aortic stenosis felt to be [id number] in the past ) Sacroiliitis Hypertension (although listed as a problem, she notes that her blood pressures is generally 70-80 mmHg in her arms, but approximately 50 mm higher as a "core pressure" per prior central hemodynamics obtained at catheterization). Dyslipidemia Subclavian steal syndrome Elevated fasting glucose Spinal stenosis Toxic diffuse goiter Graves ophthalmopathy Decreased hearing Pulmonary hypertension Cerebrovascular accident without residual deficits Incisional hernia History of concussion Multiple small bowel obstructions. PAST SURGICAL HISTORY: 1. Abdominal aortic aneurysm repair and bifemoral arterial grafts. MEDICATIONS: Acetaminophen Amlodipine 2.5 mg daily Aspirin 81 mg daily Atorvastatin 80 mg daily Bumex 1.5 mg daily Carvedilol 3.125 mg BID Cholecalciferol Cloipidogrel 75 mg daily Levothyroxine 125 mcg daily Olmesartan 20 mg daily Spironolactone 25 mg daily ALLERGIES: Ramipril caused a cough. FAMILY HISTORY: Mother at 80 hypertension, father 56 stroke, brother of lung cancer. 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 Former alcohol, none recently. . REVIEW OF SYSTEMS: As per history of present illness. No fever or chills. Has some minor cough which is nonproductive. He had been walking about the mall 3 times a week in the past, but she admits it has been sometime since she was able to do this. PHYSICAL EXAMINATION: General: Elderly white woman who appeared disoriented and moderately distressed initially initially. Vitals: Afebrile. BP on measurable (see above), pulse 150 apical early, respirations 24 and somewhat labored. HEENT: Unremarkable. Neck: Jugular venous pulse alf to the angle of the jaw at 45 with increased respiratory variation, bilateral carotid bruits versus transmitted murmur. Lungs: Moderately decreased breath sounds with few faint crackles, no wheezing. Cardiac: Irregular, tachycardic rhythm with 2/6 right upper sternal border mid peaking crescendo decrescendo murmur, continuous bruit sound left upper sternal border, 2/6 apical holosystolic murmur which is nonradiating, diastolic sounds representing murmur versus portion of continuous bruit left sternal border, no distinct gallop. Abdomen: Mildly distended. Extremities: No edema, palpable posterior tibial pulses, good capillary refill. Neurologic: Confused but awake, grossly nonfocal. DATA: Twelve lead from monitor shows probable atrial flutter with rapid ventricular response (150 bpm). ECG 2 days ago showed sinus rhythm with anterior downsloping ST depression and T -wave abnormalities which were new. Labs from today with hemoglobin 11.4. Sodium 151, potassium 3.5, chloride 111, CO 2 28, BUN 59, creatinine 1.6 (BUN 92 and creatinine 2.8 is yesterday). Troponin was normal on admission and jackie to 0.05 and level that it 0.046 yesterday. CK was markedly elevated up to 1227 but with a negative MB fraction. Albumin 2.7. ABG was 7.32/54/71/28. Echocardiogram report from yesterday showed EF 55-60% (previously 35-40%), severe inferior posterior hypokinesis, mild mitral regurgitation and mild aortic stenosis. Left atrium is severely dilated. Of note, prior echocardiogram showed severe mitral regurgitation an indeterminate but possibly severe aortic stenosis. IMPRESSION: 1. Paroxysmal atrial fibrillation with rapid ventricular response, sinus rhythm post semi-urgent electrical cardioversion. 2. History of ischemic cardiomyopathy, systolic function improved. 3. Peripheral hypotension, historically normal "core pressure" 4. Vascular disease, as noted. 5. Mitral and aortic valvular disease, uncertain severity. 6. Partial small bowel obstruction with possible GI bleeding, reason for current admission. 7. 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 8. Multiple other medical problems as noted, stable. DISCUSSION: Afib: Patient with ischemic cardiomyopathy and extensive vascular disease admitted for noncardiac reasons who developed atrial fibrillation with rapid ventricular response requiring semi urgent electrical cardioversion due to concerns about hypoperfusion. Rhythm remains sinus, given her severely dilated left atrium and poor tolerance of atrial fibrillation as well as the possibility she may not be an anticoagulation candidate due to GI bleeding, recommend IV amiodarone loading with shift to oral dosing when she is able to take medication by mouth. Cardiomyopathy: She does not have overt congestion and did respond to hydration overnight with a reduction in her degree of azotemia/renal dysfunction, however will need to monitor volume status carefully given her history of ischemic cardiomyopathy and her outpatient requirement for diuretics to maintain euvolemia. Vascular disease/aneurysm/valvular disease: No urgent issues in regards to management. Defer to Dr. Novak regarding long-term management. Will follow along from a cardiology standpoint until Dr. Novak returns on Wednesday.
--- NOTE | 2016-07-04 17:41 | Procedure Note ---
Procedure Note Date of Service Jul 04, 2016. Procedure Note Procedure: Urgent electrical cardioversion Operator Specialist Communications: Peter Reardon MD Indication: Atrial fibrillation with rapid ventricular response and hypotension /altered mental status Consent: Risks and benefits discussed in detail with the patient's 2 daughters (patient was obtunded not able to consent). Written consent obtained for both conscious sedation and electrical cardioversion Moderate sedation: Etomidate 4 mg IV Procedure details: After administration of etomidate and confirmation that patient was sedated a single synchronized 120 joule shock was delivered via right anterior and left posterior cardioversion pads. Rhythm returned to sinus immediately, there was a brief further run of atrial fibrillation which spontaneously reverted to sinus afterwards at which time the rhythm remained in sinus at 80 bpm. Blood pressure jackie from poorly measurable to normotensive and oxygen saturation increased to 100%. Complications: None.
[2016-07-04] MEDS ORDERED: NURSING VERBAL MED ORDER ONE ×2 (18:30→21:15)
[2016-07-04] MEDS: SODIUM CHLORIDE 0.45% 1000ML 1,000 ML IV SCH (18:40)
[2016-07-04 21:30] LABS: HEMATOCRIT 32.5 % (37-47)
[2016-07-04] MEDS: AMIODARONE / D5W 200 ML IV SCH (21:41)
[2016-07-05] VITALS (11 sets, daily range): BP systolic 118–160; BP diastolic 53–105; PULSE 60–72; TEMP 36.5–37.2; O2SAT 93–99
[2016-07-05] MEDS: METOPROLOL TARTRATE 1 MG/ML VIAL IV. SCH ×3 (00:25→08:23)
[2016-07-05] MEDS: PANTOprazole INJ 40 MG in DEXTROSE 5% 100ML IV SCH ×5 (01:52→22:28)
[2016-07-05] MEDS: PIPERACILL/TAZOBAC IV 3.375 GM in DEXTROSE 5% 100ML 100 ML IV SCH (03:53)
[2016-07-05] MEDS: SODIUM CHLORIDE 0.45% 1000ML 1,000 ML IV SCH (05:42)
[2016-07-05 06:00] LABS: COMPLETE YES; EOS % 0.9 %; HEMATOCRIT 30.3 % (37-47); IG% 0.2 %; LYMPH % 12.3 %; LYMPH ABS # 1.57 K/uL (1.2-3.4); MEAN CELL VOLUME 104.5 fL (80-100); MEAN CORPUSCULAR HEMOGLOBIN 33.4 pg (25-34); MEAN PLATELET VOLUME 10.4 fL (7.4-10.4); MONO % 8.1 %; NEUT % 78.5 %; PLATELET COUNT 196 K/uL (130-400); WHITE BLOOD COUNT 12.72 K/uL (4.8-10.8)
[2016-07-05 06:31] LABS: ALKALINE PHOSPHATASE 54 U/L (45-117); ALT/SGPT 31 U/L (12-78); AST/SGOT 37 U/L (15-37); BLOOD UREA NITROGEN 31 mg/dl (7-18); BUN/CREATININE RATIO 24.1 (10-20); CALCIUM 7.9 mg/dl (8.5-10.1); CARBON DIOXIDE 28 mmol/L (21-32); CHLORIDE 104 mmol/L (98-107); GLUCOSE 110 mg/dl (70-99); MAGNESIUM 2.5 mg/dl (1.8-2.4); POTASSIUM 3.3 mmol/L (3.5-5.1); SODIUM 139 mmol/L (136-145)
[2016-07-05] MEDS ORDERED: POTASSIUM CHLORIDE 10 MEQ TABCR PO STA (07:38)
--- NOTE | 2016-07-05 07:52 | Progress Note ---
Subjective Date of Service: Jul 05, 2016. Subjective pt is much more awake and alert, findings of Gram negative sepsis from urinary source poa, afib rvr and cardiogenic shock treated with emergent cardioversion have resolved Pt is awake and alert, eating clears Problem List Medical Problems: (1) Congestive heart failure Status: Acute (2) Dehydration Status: Acute (3) Hypotension Status: Acute (4) Lactic acidosis Status: Acute (5) Pulmonary edema Status: Acute (6) Sepsis Status: Acute (7) Stroke Status: Acute Review of Systems Constitutional: + fatigue, + weakness, No chills, No fever Respiratory: No cough, No shortness of breath Cardiac: No chest pain, No edema Abdomen: No diarrhea, No nausea, No pain, No vomiting Female : No dysuria, No urinary frequency Objective Vital Signs Date Time Temp Pulse Resp B/P Pulse Ox O2 Delivery O2 Flow Rate FiO2 07/05/16 06:00 36.8 67 18 126/95 98 Nasal Cannula 2.0 07/05/16 04:00 37.0 65 16 135/59 97 Nasal Cannula 4.0 07/05/16 04:00 97 Nasal Cannula 4.0 07/05/16 03:54 68 138/58 07/05/16 02:00 60 16 151/65 96 Nasal Cannula 2.0 07/05/16 00:25 65 118/53 07/05/16 00:00 36.9 64 18 118/53 95 Nasal Cannula 2.0 07/05/16 00:00 96 Nasal Cannula 2.0 07/04/16 23:00 64 18 146/58 97 Nasal Cannula 2.0 07/04/16 22:00 65 18 117/68 98 Nasal Cannula 2.0 07/04/16 21:00 66 18 152/58 98 Nasal Cannula 2.0 07/04/16 20:30 72 156/91 07/04/16 20:00 98 Nasal Cannula 4.0 07/04/16 20:00 36.6 77 18 156/91 98 Nasal Cannula 4.0 07/04/16 19:01 74 129/65 100 Nasal Cannula 5.0 07/04/16 18:08 82 166/79 07/04/16 18:01 79 166/79 99 Nasal Cannula 5.0 07/04/16 17:50 36.7 80 164/82 98 Nasal Cannula 5.0 07/04/16 17:45 82 150/76 97 Nasal Cannula 5.0 07/04/16 17:31 78 163/77 100 07/04/16 17:00 78 135/61 100 07/04/16 16:31 36.6 80 141/63 100 Nasal Cannula 5.0 07/04/16 16:03 99 Nasal Cannula 5.0 07/04/16 15:13 78 153/72 83 07/04/16 14:31 78 135/72 95 Nasal Cannula 5.0 07/04/16 13:31 72 126/56 07/04/16 12:34 36.7 74 109/67 95 Nasal Cannula 5.0 07/04/16 12:17 71 118/94 07/04/16 12:02 Nasal Cannula 5.0 07/04/16 12:00 72 07/04/16 10:38 36.7 81 139/68 100 BiPAP 40 07/04/16 10:36 81 137/79 100 BiPAP 40 07/04/16 10:35 85 128/65 100 BiPAP 40 07/04/16 10:32 90 126/74 93 07/04/16 10:28 85 116/100 98 07/04/16 10:23 107 138/87 98 5.0 07/04/16 10:20 36.6 142 88/74 07/04/16 10:16 137 95/58 97 5.0 07/04/16 10:14 138 98/60 07/04/16 10:12 132 75/59 07/04/16 10:06 36.6 151 97/54 07/04/16 08:56 177 07/04/16 07:53 177 126/69 Physical Exam General Appearance: WD/WN, + moderate distress (weakness) Eyes: PERRL, EOMI Neck: supple, no JVD Respiratory/Chest: chest non-tender, lungs clear, normal breath sounds Cardiovascular: + systolic murmur, + irregularly irregular Abdomen: soft, + abnormal bowel sounds (hyperactive bowel sounds), + distended Extremities: no pedal edema, no calf tenderness Neurologic/Psychiatric: alert, oriented x 3 Laboratory Results Last 24 Hours Test 07/04/16 10:06 07/04/16 10:46 07/04/16 13:01 07/04/16 14:45 Bedside Hemoglobin 10.5 g/dl Bedside Hematocrit 31 % Bedside Blood Gas pH (LAB) 7.32 Bedside Blood Gas pCO2 (LAB) 54 mmHg Bedside Blood Gas pO2 (LAB) 71 mmHg Bedside Blood Gas HCO3 (LAB) 28 meq/L Bedside Blood Gas Total CO2 29 mEq/l Bedside Blood Gas Base Excess (LAB) 2.0 meq/L Bedside Blood Gas O2 Saturation 92.0 % Bedside Sodium 147 mEq/L Bedside Potassium 3.5 mEq/L Hemoglobin 11.4 g/dL Hematocrit 35.6 % Lactic Acid Level 1.5 mmol/L Bedside Glucose 100 mg/dl Sodium Level 150 mmol/L Potassium Level 4.0 mmol/L Chloride Level 113 mmol/L Carbon Dioxide Level 27 mmol/L Anion Gap 10.0 mmol/L Blood Urea Nitrogen 49 mg/dl Creatinine 1.40 mg/dl Est Creatinine Clear Calc Drug Dose 26.7 ml/min Estimated GFR () 40.5 Estimated GFR (Non- 34.9 BUN/Creatinine Ratio 35.0 Random Glucose 112 mg/dl Calcium Level 7.3 mg/dl Magnesium Level 3.0 mg/dl Test 07/04/16 14:54 07/04/16 18:04 07/04/16 21:09 07/05/16 05:22 Hemoglobin 9.7 g/dL 10.0 g/dL 9.7 g/dL Hematocrit 31.4 % 32.5 % 30.3 % Procalcitonin 1.99 ng/ml 1.22 ng/ml Bedside Glucose 207 mg/dl White Blood Count 12.72 K/uL Red Blood Count 2.90 M/uL Mean Corpuscular Volume 104.5 fL Mean Corpuscular Hemoglobin 33.4 pg Mean Corpuscular Hemoglobin Concent 32.0 g/dl Platelet Count 196 K/uL Mean Platelet Volume 10.4 fL Neutrophils (%) (Auto) 78.5 % Lymphocytes (%) (Auto) 12.3 % Monocytes (%) (Auto) 8.1 % Eosinophils (%) (Auto) 0.9 % Basophils (%) (Auto) 0.0 % Neutrophils # (Auto) 9.97 K/uL Lymphocytes # (Auto) 1.57 K/uL Monocytes # (Auto) 1.03 K/uL Eosinophils # (Auto) 0.12 K/uL Basophils # (Auto) 0.00 K/uL RDW Standard Deviation 56.1 fL RDW Coefficient of Variation 14.5 % Immature Granulocyte % (Auto) 0.2 % Immature Granulocyte # (Auto) 0.03 K/uL Sodium Level 139 mmol/L Potassium Level 3.3 mmol/L Chloride Level 104 mmol/L Carbon Dioxide Level 28 mmol/L Anion Gap 7.0 mmol/L Blood Urea Nitrogen 31 mg/dl Creatinine 1.30 mg/dl Est Creatinine Clear Calc Drug Dose 29.9 ml/min Estimated GFR () 44.2 Estimated GFR (Non- 38.2 BUN/Creatinine Ratio 24.1 Random Glucose 110 mg/dl Calcium Level 7.9 mg/dl Magnesium Level 2.5 mg/dl Total Bilirubin 0.3 mg/dl Direct Bilirubin < 0.1 mg/dl Aspartate Amino Transf (AST/SGOT) 37 U/L Alanine Aminotransferase (ALT/SGPT) 31 U/L Alkaline Phosphatase 54 U/L Total Creatine Kinase 284 U/L Total Protein 5.4 gm/dl Albumin 2.6 gm/dl Assessment and Plan 80 yo F Partial SBO, PARAS developed Gram negative sepsis from urinary source poa, afib rvr and cardiogenic shock treated with emergent cardioversion Gram negative sepsis, e coli in blood and urine, on IV Zosyn, proves to be E coli can streamline antiboitics Afib now nsr is on amiodarone,conversion to po, will use restart home coreg in place of metoprolol Partial SBO: ng removed, having bowel movement, ng output was dark and concerns for gib, ppi gtt, did drop hgb by 2 grams gastroenterology will decide as hgb is followed Chronic systolic HF/CAD with h/o IQRA:ECHO shows good EF and moderate MR PARAS - IMPROVING: held Lisinopril Bumex and Aldactone due to dehydration, x rays shows some right sided pleural effusion - Enlarging AAA: she says she had a repair at [facility] years ago- now on CT the AAA is > 6cm in diameter: - Consult vascular surgery, No intervention at this time, repeat U/S 07/04 no enlargement or dissection noted subacute right rib fractures no pain at this time Diarrhea:- C.diff negative- Stool studies pending Dyslipidemia: Atorvastatin held secondary to elevate CPK DVT prophylaxis: Heparin renal dose adjustment Code Status: LEVEL V, DNR PT/OT eval
--- NOTE | 2016-07-05 08:09 | DIAGNOSTIC IMAGING REPORT ---
CHEST ONE VIEW PORTABLE HISTORY: hypoxia COMPARISON: Chest 07/02/2016. FINDINGS: No pneumothorax. Redemonstration of the descending thoracic aortic aneurysm. Cardiomegaly, unchanged. Chronic elevation the right hemidiaphragm. Bibasilar densities persist. Trace fluid within the right minor fissure. No pneumothorax. IMPRESSION: No significant change compared to the prior study. Patchy bibasilar densities persist. Electronically signed by: Rick Bae M.D. 07/05/2016 8:07 AM Dictated Date/Time: 07/05/2016 8:05 AM
[2016-07-05] MEDS: POTASSIUM CHLR 10 MEQ / WTR 10 MEQ in PREMIXED WATER 100 ML IV SCH ×3 (08:21→12:09)
[2016-07-05] MEDS: AMIODARONE / D5W 200 ML IV SCH (08:46)
--- NOTE | 2016-07-05 09:57 | Surgery Progress Note ---
Surgery Progress Note Date of Service Jul 05, 2016. Subjective + feeling well pt is doing better, pt hads no abdominal pain, no N/V, Objective Vital Signs: Date Time Temp Pulse Resp B/P Pulse Ox O2 Delivery O2 Flow Rate FiO2 07/05/16 08:23 67 07/05/16 08:00 36.5 69 18 160/63 94 Nasal Cannula 2.0 07/05/16 08:00 Nasal Cannula 2.0 07/05/16 06:00 36.8 67 18 126/95 98 Nasal Cannula 2.0 07/05/16 04:00 37.0 65 16 135/59 97 Nasal Cannula 4.0 07/05/16 04:00 97 Nasal Cannula 4.0 07/05/16 03:54 68 138/58 07/05/16 02:00 60 16 151/65 96 Nasal Cannula 2.0 07/05/16 00:25 65 118/53 07/05/16 00:00 36.9 64 18 118/53 95 Nasal Cannula 2.0 07/05/16 00:00 96 Nasal Cannula 2.0 07/04/16 23:00 64 18 146/58 97 Nasal Cannula 2.0 07/04/16 22:00 65 18 117/68 98 Nasal Cannula 2.0 07/04/16 21:00 66 18 152/58 98 Nasal Cannula 2.0 07/04/16 20:30 72 156/91 07/04/16 20:00 98 Nasal Cannula 4.0 07/04/16 20:00 36.6 77 18 156/91 98 Nasal Cannula 4.0 07/04/16 19:01 74 129/65 100 Nasal Cannula 5.0 07/04/16 18:08 82 166/79 07/04/16 18:01 79 166/79 99 Nasal Cannula 5.0 07/04/16 17:50 36.7 80 164/82 98 Nasal Cannula 5.0 07/04/16 17:45 82 150/76 97 Nasal Cannula 5.0 07/04/16 17:31 78 163/77 100 07/04/16 17:00 78 135/61 100 07/04/16 16:31 36.6 80 141/63 100 Nasal Cannula 5.0 07/04/16 16:03 99 Nasal Cannula 5.0 07/04/16 15:13 78 153/72 83 07/04/16 14:31 78 135/72 95 Nasal Cannula 5.0 07/04/16 13:31 72 126/56 07/04/16 12:34 36.7 74 109/67 95 Nasal Cannula 5.0 07/04/16 12:17 71 118/94 07/04/16 12:02 Nasal Cannula 5.0 07/04/16 12:00 72 07/04/16 10:38 36.7 81 139/68 100 BiPAP 40 07/04/16 10:36 81 137/79 100 BiPAP 40 07/04/16 10:35 85 128/65 100 BiPAP 40 07/04/16 10:32 90 126/74 93 07/04/16 10:28 85 116/100 98 07/04/16 10:23 107 138/87 98 5.0 07/04/16 10:20 36.6 142 88/74 07/04/16 10:16 137 95/58 97 5.0 07/04/16 10:14 138 98/60 07/04/16 10:12 132 75/59 07/04/16 10:06 36.6 151 97/54 07/04/16 10:00 151 98 60 General Appearance: WD/WN Head: normocephalic Neck: supple, no JVD Respiratory/Chest: chest non-tender, lungs clear Cardiovascular: regular rate, rhythm, no JVD Abdomen: normal bowel sounds, non tender, non distended, soft (ventral hernia, soft, no tenderness, ) Extremities: normal range of motion, non-tender, normal inspection Laboratory Results: Results Past 24 Hours Test 07/04/16 10:06 07/04/16 10:46 07/04/16 13:01 07/04/16 14:45 Range/Units Bedside Hemoglobin 10.5 12.0-16.0 g/dl Bedside Hematocrit 31 37-47 % Bedside Blood Gas pH (LAB) 7.32 7.35-7.45 Bedside Blood Gas pCO2 (LAB) 54 35-46 mmHg Bedside Blood Gas pO2 (LAB) 71 80-95 mmHg Bedside Blood Gas HCO3 (LAB) 28 19-24 meq/L Bedside Blood Gas Total CO2 29 24-31 mEq/l Bedside Blood Gas Base Excess (LAB) 2.0 -9-1.8 meq/L Bedside Blood Gas O2 Saturation 92.0 90-95 % Bedside Sodium 147 135-144 mEq/L Bedside Potassium 3.5 3.3-5.0 mEq/L Hemoglobin 11.4 12.0-16.0 g/dL Hematocrit 35.6 37-47 % Lactic Acid Level 1.5 0.4-2.0 mmol/L Bedside Glucose 100 70-90 mg/dl Sodium Level 150 136-145 mmol/L Potassium Level 4.0 3.5-5.1 mmol/L Chloride Level 113 98-107 mmol/L Carbon Dioxide Level 27 21-32 mmol/L Anion Gap 10.0 3-11 mmol/L Blood Urea Nitrogen 49 7-18 mg/dl Creatinine 1.40 0.60-1.20 mg/dl Est Creatinine Clear Calc Drug Dose 26.7 ml/min Estimated GFR () 40.5 Estimated GFR (Non- 34.9 BUN/Creatinine Ratio 35.0 10-20 Random Glucose 112 70-99 mg/dl Calcium Level 7.3 8.5-10.1 mg/dl Magnesium Level 3.0 1.8-2.4 mg/dl Test 07/04/16 14:54 07/04/16 18:04 07/04/16 21:09 07/05/16 05:22 Range/Units Hemoglobin 9.7 10.0 9.7 12.0-16.0 g/dL Hematocrit 31.4 32.5 30.3 37-47 % Procalcitonin 1.99 1.22 0-0.5 ng/ml Bedside Glucose 207 70-90 mg/dl White Blood Count 12.72 4.8-10.8 K/uL Red Blood Count 2.90 4.2-5.4 M/uL Mean Corpuscular Volume 104.5 80-100 fL Mean Corpuscular Hemoglobin 33.4 25-34 pg Mean Corpuscular Hemoglobin Concent 32.0 32-36 g/dl Platelet Count 196 130-400 K/uL Mean Platelet Volume 10.4 7.4-10.4 fL Neutrophils (%) (Auto) 78.5 % Lymphocytes (%) (Auto) 12.3 % Monocytes (%) (Auto) 8.1 % Eosinophils (%) (Auto) 0.9 % Basophils (%) (Auto) 0.0 % Neutrophils # (Auto) 9.97 1.4-6.5 K/uL Lymphocytes # (Auto) 1.57 1.2-3.4 K/uL Monocytes # (Auto) 1.03 0.11-0.59 K/uL Eosinophils # (Auto) 0.12 0-0.5 K/uL Basophils # (Auto) 0.00 0-0.2 K/uL RDW Standard Deviation 56.1 36.4-46.3 fL RDW Coefficient of Variation 14.5 11.5-14.5 % Immature Granulocyte % (Auto) 0.2 % Immature Granulocyte # (Auto) 0.03 0.00-0.02 K/uL Sodium Level 139 136-145 mmol/L Potassium Level 3.3 3.5-5.1 mmol/L Chloride Level 104 98-107 mmol/L Carbon Dioxide Level 28 21-32 mmol/L Anion Gap 7.0 3-11 mmol/L Blood Urea Nitrogen 31 7-18 mg/dl Creatinine 1.30 0.60-1.20 mg/dl Est Creatinine Clear Calc Drug Dose 29.9 ml/min Estimated GFR () 44.2 Estimated GFR (Non- 38.2 BUN/Creatinine Ratio 24.1 10-20 Random Glucose 110 70-99 mg/dl Calcium Level 7.9 8.5-10.1 mg/dl Magnesium Level 2.5 1.8-2.4 mg/dl Total Bilirubin 0.3 0.2-1 mg/dl Direct Bilirubin < 0.1 0-0.2 mg/dl Aspartate Amino Transf (AST/SGOT) 37 15-37 U/L Alanine Aminotransferase (ALT/SGPT) 31 12-78 U/L Alkaline Phosphatase 54 45-117 U/L Total Creatine Kinase 284 26-192 U/L Total Protein 5.4 6.4-8.2 gm/dl Albumin 2.6 3.4-5.0 gm/dl Microbiology Results 07/04/16 MRSA DNA Surveillance Screen - Final, Complete Specimen Negative for MRSA by DNA Probe Assessment & Plan base on pt has no GI obstruction symptoms, I sign off today, please call me any change Thanks,
--- NOTE | 2016-07-05 11:05 | Cardiology Follow-Up ---
Cardiology Follow-Up Date of Service Jul 05, 2016. Cardiology Follow-Up SUBJECTIVE: 80 [id number] with coronary artery disease (status post remote stenting LAD/ RCA), chronic mild systolic congestive heart failure (on Bumex), some degree of aortic stenosis and variable mitral regurgitation, and extensive vascular disease (AAA repair with enlarging thoracoabdominal aneurysm, s/p carotid endarterectomy, etc.) who was admitted 07/02/2016 with nausea, vomiting and diarrhea felt to be secondary to a partial small-bowel obstruction. No chest pain at any time. Yesterday she developed paroxysmal atrial fibrillation with rapid ventricular response requiring semi-urgent electrical cardioversion due to hypotension and altered mental status. She has remained in sinus rhythm since the cardioversion approximately 24 hours ago. She was awake, alert, and interactive today. No chest pain or dyspnea. Hemodynamically stable. Her NG tube has been removed and her apparent minor GI bleeding through NGT is being treated conservatively. She had no specific complaints. PHYSICAL EXAMINATION: General: Elderly white female alert, interactive, in no distress. Vitals: Afebrile. BP is 123/76, pulse 65 and regular, respirations 18 and unlabored. HEENT: Unremarkable. Neck: Jugular venous pulse less than a third of the way to the angle of the jaw at 90, bilateral carotid bruits versus transmitted murmur. Lungs: Moderately decreased breath sounds but clear today. No accessory muscle use. Cardiac: Regular rhythm with occasional ectopy, 2/6 right upper sternal border mid peaking crescendo decrescendo murmur, continuous bruit sound left upper sternal border, 2/6 apical holosystolic murmur which is nonradiating, diastolic sounds representing murmur versus portion of continuous bruit left sternal border, no distinct gallop. Abdomen: Mildly distended. Extremities: No edema, palpable posterior tibial pulses, good capillary refill. Neurologic: Awake and interactive, grossly nonfocal. DATA: Monitor shows sinus rhythm with occasional PVCs. Chest x-ray shows patchy bibasilar densities which are unchanged. WBC 12.72, hemoglobin 9.7, normal platelet count. Potassium 3.3 with otherwise normal electrolytes, BUN 31/creatinine 1.3 (49/1.4 yesterday). Echocardiogram report 07/03: EF 55-60% (previously 35-40%), severe inferior posterior hypokinesis, mild mitral regurgitation and mild aortic stenosis. Left atrium is severely dilated. Of note, prior echocardiogram showed severe mitral regurgitation an indeterminate but possibly severe aortic stenosis. IMPRESSION: 1. Paroxysmal atrial fibrillation with rapid ventricular response, remains sinus rhythm post semi-urgent electrical cardioversion 24 hours ago. 2. History of ischemic cardiomyopathy, systolic function improved. 3. Peripheral hypotension, historically normal "core pressure" 4. Vascular disease, as noted. 5. Mitral and aortic valvular disease, uncertain severity. 6. Partial small bowel obstruction with possible GI bleeding, reason for current admission. 7. 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 8. Multiple other medical problems as noted, stable. DISCUSSION: Afib: Rhythm remains sinus. Given her severely dilated left atrium and poor tolerance of atrial fibrillation as well as the possibility she may not be an anticoagulation candidate due to GI bleeding, recommend continuing with amiodarone loading (can shift to oral dosing now that she is taking medication by mouth). Depending upon the degree of concern regarding her possible GI bleeding, as well as the probability she will remain in sinus rhythm on amiodarone, defer decision on outpatient anticoagulation to Dr. Novak. Cardiomyopathy: She does not have overt congestion and did respond to hydration over the past 2 nights with a reduction in her degree of azotemia/renal dysfunction. Fortunately, no evidence of volume overload today, but would consider discontinuation of intravenous fluids to avoid hypervolemia. At some point, she will likely her diuretic restarted. Vascular disease/aneurysm/valvular disease: No urgent issues, she does have an enlarging thoracoabdominal aneurysm but outpatient discussions have already determined this will be conservatively managed. Will follow along from a cardiology standpoint until Dr. Novak returns on Wednesday.
--- NOTE | 2016-07-05 11:22 | CRITICAL CARE PROGRESS NOTE ---
DATE: 07/05/2016 SUBJECTIVE: This is ICU day #2 after the patient was transferred from the floor secondary to atrial fibrillation with rapid ventricular response and the need for cardioversion. She was also drowsy after receiving Ativan. There were no acute events overnight and she remains in normal sinus rhythm, sometimes with bigeminy. She is having small liquid bowel movements and had a very interrupted sleep last night secondary to needing to be cleaned relatively often. She says she feels "lousy," although primarily she is tired. She has had visitors in her room nearly constantly during the daylight hours. She had shortness of breath at rest, but she thinks it might be a bit better. She is clearly more awake and she is tolerating clears. She denies abdominal pain, nausea or vomiting. The NG tube was removed yesterday. PHYSICAL EXAMINATION: VITAL SIGNS: Maximum temperature 37, heart rate 60-80, respiratory rate 16-18, blood pressure 126-151/50s-90s, and oxygen saturation 98% on 2 liters nasal cannula. 24-hour fluid balance is positive 1.4 liters. Bowel movement x5 overnight. GENERAL: She is awake, alert and conversing with her 3 daughters. LUNGS: Have decreased breath sounds in the bases. No rales, rhonchi or wheezes. HEART: Regular rate and rhythm. No murmurs noted. ABDOMEN: Soft, nondistended, and nontender. The ventral hernia is easily reduced. Active bowel sounds. EXTREMITIES: Warm. No edema. NEUROLOGIC: She is easily able to carry on a conversation and moves all 4 extremities. LABORATORY DATA: White blood cell count 12.72, hemoglobin 9.7, hematocrit 30.3, and platelets 196. Sodium 139, potassium 3.3, chloride 104, CO2 of 28, BUN 31, creatinine 1.3, and magnesium 2.5. Total bilirubin 0.3. Procalcitonin 1.22. Blood sugar 110. MICROBIOLOGY DATA: With pansensitive E. coli in the urine and one set of 2 blood cultures positive for E. coli, which is also pansensitive. IMAGING STUDIES: Portable chest x-ray from this morning was reviewed and shows patchy bibasilar densities, elevation of the right hemidiaphragm and some fluid in the minor fissure. MEDICATIONS AND INFUSIONS: Acetaminophen, amiodarone, Lopressor, Zofran, Protonix infusion, half normal saline at 80 mL per hour, and potassium IV. IMPRESSION: 1. Atrial fibrillation with rapid ventricular response, she likely has paroxysmal atrial fibrillation. She is status post cardioversion yesterday and remains in normal sinus rhythm with some ectopy on an amiodarone infusion. She is not being anticoagulated systemically due to concerns of possible GI bleed. 2. Metabolic encephalopathy and acute hypercapneic respiratory failure secondary to sedation from Ativan, resolved. 3. Escherichia coli urinary tract infection. She has been on Zosyn D#4, which was started on admission. She also received one dose of Vancomycin. 4. Small bowel obstruction. This has resolved and the general surgery service has signed off today. She is tolerating a clear liquid diet. 5. Possible gastrointestinal bleed with coffee-ground material from her NG tube yesterday. The NG tube was discontinued and her hemoglobin is stable. 6. Acute kidney injury, continues to improve. 7. One set of blood cultures positive for pansensitive Escherichia coli. 8. History of bilateral subclavian stenosis. 9. Enlarging thoracoabdominal aortic aneurysm. Reevaluated yesterday with ultrasound secondary to her acute decompensation. The vascular surgery service has seen her and there is no plan for any intervention at this point. 10. History of abdominal aortic aneurysm repair with aortobifemoral bypass. 11. Hypokalemia. 12. Diarrhea. 13. History of hypothyroidism PLAN: NEUROLOGIC: Avoid sedatives. Acetaminophen for pain. CARDIOVASCULAR: Discontinue scheduled Lopressor and resume carvedilol. Watch volume status and decrease IV fluids to 40 mL per hour. She may be nearing euvolemia. Consider resuming Norvasc and diuretic tomorrow. Continue amiodarone and begin transition to oral. PULMONARY: Out of bed and instruct on the use of incentive spirometry. INFECTIOUS DISEASE: Discontinue Zosyn and begin Rocephin. Repeat blood cultures. GASTROINTESTINAL: Continue serial blood counts and consider changing Protonix to 40 mg IV b.i.d. I think her diet can be advanced as well, but I would like to wait for the GI service to see her today before changing orders. RENAL: Replete electrolytes. Discontinue IV fluids later this afternoon if she continues to do well. HEME: Resume subcutaneous heparin tonight. She is getting SCDs presently. Continue to hold Plavix and aspirin for now, but I suspect they can be resumed soon. ENDO: Resume levothyroxine. She has done well over the past 24 hours. I spent a significant amount of time talking with both the patient and her 3 daughters, who were at the bedside. I think she can transfer back to step down. Please call me with any questions or concerns. MARYELLEND
[2016-07-05] MEDS: CEFTRIAXONE SOD INJ 1 GM in DEXTROSE 5% ADD-VANTAGE 50ML 50 ML IV SCH (12:09)
[2016-07-05 13:30] LABS: HEMATOCRIT 30.2 % (37-47)
[2016-07-05 13:56] LABS: BUN/CREATININE RATIO 18.5 (10-20); CREATININE 1.3 mg/dl (0.60-1.20); POTASSIUM 4.4 mmol/L (3.5-5.1)
--- NOTE | 2016-07-05 13:57 | Progress Note ---
Progress Note Date of Service Jul 05, 2016. Progress Note Pt with dark stool. She denies abd pain, ita clears. Date Time Temp Pulse Resp B/P Pulse Ox O2 Delivery O2 Flow Rate FiO2 07/05/16 12:00 36.5 64 18 156/75 94 Nasal Cannula 2.0 07/05/16 12:00 Nasal Cannula 2.0 07/05/16 10:00 36.5 65 18 123/76 99 Nasal Cannula 2.0 07/05/16 08:23 67 07/05/16 08:00 36.5 69 18 160/63 94 Nasal Cannula 2.0 07/05/16 08:00 Nasal Cannula 2.0 07/05/16 06:00 36.8 67 18 126/95 98 Nasal Cannula 2.0 07/05/16 04:00 37.0 65 16 135/59 97 Nasal Cannula 4.0 07/05/16 04:00 97 Nasal Cannula 4.0 07/05/16 03:54 68 138/58 07/05/16 02:00 60 16 151/65 96 Nasal Cannula 2.0 07/05/16 00:25 65 118/53 07/05/16 00:00 36.9 64 18 118/53 95 Nasal Cannula 2.0 07/05/16 00:00 96 Nasal Cannula 2.0 07/04/16 23:00 64 18 146/58 97 Nasal Cannula 2.0 07/04/16 22:00 65 18 117/68 98 Nasal Cannula 2.0 07/04/16 21:00 66 18 152/58 98 Nasal Cannula 2.0 07/04/16 20:30 72 156/91 07/04/16 20:00 98 Nasal Cannula 4.0 07/04/16 20:00 36.6 77 18 156/91 98 Nasal Cannula 4.0 07/04/16 19:01 74 129/65 100 Nasal Cannula 5.0 07/04/16 18:08 82 166/79 07/04/16 18:01 79 166/79 99 Nasal Cannula 5.0 07/04/16 17:50 36.7 80 164/82 98 Nasal Cannula 5.0 07/04/16 17:45 82 150/76 97 Nasal Cannula 5.0 07/04/16 17:31 78 163/77 100 07/04/16 17:00 78 135/61 100 07/04/16 16:31 36.6 80 141/63 100 Nasal Cannula 5.0 07/04/16 16:03 99 Nasal Cannula 5.0 07/04/16 15:13 78 153/72 83 07/04/16 14:31 78 135/72 95 Nasal Cannula 5.0 Appears comfortable, although has noticeable incr WOB Abd soft NT Rectal Dark brown stool Last 24 Hours Test 07/04/16 14:45 07/04/16 14:54 07/04/16 18:04 07/04/16 21:09 Sodium Level 150 mmol/L Potassium Level 4.0 mmol/L Chloride Level 113 mmol/L Carbon Dioxide Level 27 mmol/L Anion Gap 10.0 mmol/L Blood Urea Nitrogen 49 mg/dl Creatinine 1.40 mg/dl Est Creatinine Clear Calc Drug Dose 26.7 ml/min Estimated GFR () 40.5 Estimated GFR (Non- 34.9 BUN/Creatinine Ratio 35.0 Random Glucose 112 mg/dl Calcium Level 7.3 mg/dl Magnesium Level 3.0 mg/dl Hemoglobin 9.7 g/dL 10.0 g/dL Hematocrit 31.4 % 32.5 % Procalcitonin 1.99 ng/ml Bedside Glucose 207 mg/dl Test 07/05/16 05:22 07/05/16 13:07 White Blood Count 12.72 K/uL Red Blood Count 2.90 M/uL Hemoglobin 9.7 g/dL 9.4 g/dL Hematocrit 30.3 % 30.2 % Mean Corpuscular Volume 104.5 fL Mean Corpuscular Hemoglobin 33.4 pg Mean Corpuscular Hemoglobin Concent 32.0 g/dl Platelet Count 196 K/uL Mean Platelet Volume 10.4 fL Neutrophils (%) (Auto) 78.5 % Lymphocytes (%) (Auto) 12.3 % Monocytes (%) (Auto) 8.1 % Eosinophils (%) (Auto) 0.9 % Basophils (%) (Auto) 0.0 % Neutrophils # (Auto) 9.97 K/uL Lymphocytes # (Auto) 1.57 K/uL Monocytes # (Auto) 1.03 K/uL Eosinophils # (Auto) 0.12 K/uL Basophils # (Auto) 0.00 K/uL RDW Standard Deviation 56.1 fL RDW Coefficient of Variation 14.5 % Immature Granulocyte % (Auto) 0.2 % Immature Granulocyte # (Auto) 0.03 K/uL Sodium Level 139 mmol/L Potassium Level 3.3 mmol/L Chloride Level 104 mmol/L Carbon Dioxide Level 28 mmol/L Anion Gap 7.0 mmol/L Blood Urea Nitrogen 31 mg/dl Creatinine 1.30 mg/dl Est Creatinine Clear Calc Drug Dose 29.9 ml/min Estimated GFR () 44.2 Estimated GFR (Non- 38.2 BUN/Creatinine Ratio 24.1 Random Glucose 110 mg/dl Calcium Level 7.9 mg/dl Magnesium Level 2.5 mg/dl Total Bilirubin 0.3 mg/dl Direct Bilirubin < 0.1 mg/dl Aspartate Amino Transf (AST/SGOT) 37 U/L Alanine Aminotransferase (ALT/SGPT) 31 U/L Alkaline Phosphatase 54 U/L Total Creatine Kinase 284 U/L Total Protein 5.4 gm/dl Albumin 2.6 gm/dl Procalcitonin 1.22 ng/ml A/P: UGIB - Ddx includes stress gastritis/PUD, NG trauma - Her Hgb has declined slightly, but she is hemodynamically stable with brown stool on rectal exam. She remains at high risk for anesthesia. - Advance diet to full liquids, cont PPI gtt for another 24 hours and then transition to PO BID PPI, follow hgb.
[2016-07-05] MEDS: CARVEDILOL 3.125 MG TAB PO SCH (19:57)
[2016-07-05] MEDS: AMIODARONE 200 MG TAB PO SCH (19:57)
[2016-07-05] MEDS ORDERED: NURSING VERBAL MED ORDER ONE (20:15)
[2016-07-05 21:17] LABS: HEMATOCRIT 32.3 % (37-47)
[2016-07-05] MEDS: HEPARIN SOD 5000 UNIT/0.5 ML CARP SQ SCH (22:22)
[2016-07-05] MEDS: ATORVASTATIN 40 MG TAB PO SCH (22:28)
[2016-07-06] VITALS (7 sets, daily range): BP systolic 93–180; BP diastolic 30–95; PULSE 66–81; TEMP 36.3–37.3; O2SAT 91–96
[2016-07-06] MEDS: PANTOprazole INJ 40 MG in DEXTROSE 5% 100ML IV SCH ×2 (03:10→07:43)
[2016-07-06 06:15] LABS: BASO % 0.1 %; BASO ABS # 0.01 K/uL (0-0.2); COMPLETE YES; EOS % 2.4 %; HEMATOCRIT 32.1 % (37-47); IG% 0.5 %; LYMPH % 13.6 %; LYMPH ABS # 1.31 K/uL (1.2-3.4); MEAN CELL VOLUME 103.5 fL (80-100); MEAN CORPUSCULAR HEMOGLOBIN 32.9 pg (25-34); MEAN CORPUSCULAR HGB CONC 31.8 g/dl (32-36); MEAN PLATELET VOLUME 10.5 fL (7.4-10.4); MONO % 10.8 %; NEUT % 72.6 %; PLATELET COUNT 193 K/uL (130-400); WHITE BLOOD COUNT 9.61 K/uL (4.8-10.8)
[2016-07-06] MEDS: LEVOTHYROXINE 125 MCG TAB PO SCH (06:19)
[2016-07-06 07:19] LABS: BUN/CREATININE RATIO 14.8 (10-20); CALCIUM 8.2 mg/dl (8.5-10.1); CREATININE 0.95 mg/dl (0.60-1.20); POTASSIUM 4.3 mmol/L (3.5-5.1)
[2016-07-06] MEDS: AMIODARONE 200 MG TAB PO SCH ×2 (07:37→21:22)
[2016-07-06] MEDS: CARVEDILOL 3.125 MG TAB PO SCH ×2 (07:37→21:22)
[2016-07-06] MEDS: HEPARIN SOD 5000 UNIT/0.5 ML CARP SQ SCH ×2 (07:41→21:27)
--- NOTE | 2016-07-06 09:23 | Cardiology Follow-Up ---
Subjective General Date of Service: Jul 06, 2016. Pt evaluation today including: conversation w/ patient, conversation w/ family , chart review, lab review, review of studies History of Present Illness The patient is a 80 year old female Allergies Coded Allergies: Ramipril (Verified Allergy, Unknown, Cough, 07/02/16) Social History Smoking Status: Never Smoker Hx Tobacco Use In Past Year?: No Hx Alcohol Use - Type And Amou: No Hx Substance Use - Type And Am: No Problem List Medical Problems: (1) Congestive heart failure Status: Acute (2) Dehydration Status: Acute (3) Hypotension Status: Acute (4) Lactic acidosis Status: Acute (5) Pulmonary edema Status: Acute (6) Sepsis Status: Acute (7) Stroke Status: Acute Review of Systems Respiratory: No cough, No dyspnea at rest, No shortness of breath Cardiac: No chest pain, No edema, No palpitations Physical Exam Vital Signs Last Vital Signs Documentation Date Time Temp Pulse Resp B/P Pulse Ox O2 Delivery O2 Flow Rate FiO2 07/06/16 07:13 36.5 77 20 180/91 94 07/06/16 04:13 Nasal Cannula 2.0 07/04/16 10:38 40 Physical Exam Constitutional: General Apperance: too thin Level of Distress: NAD, chronically ill Psychiatric: Mental Status: active & alert, normal mood, normal affect Orientation: oriented except where noted, to time, to place, to person Memory: recent memory normal, remote memory normal Eyes: EOM: EOMI Lungs: Respiratory effort: no dyspnea Auscultation: no rales/crackles, no rhonchi, decreased breath sounds Cardiovascular: Heart Auscultation: III/ TINO (RSB and radiation across both subclavians) Abdomen: Bowel Sounds: normal Inspection & Palpation: soft, non-distended Extremities: no edema Assessment and Plan Assessment and Plan IMPRESSION: 1. Paroxysmal atrial fibrillation with rapid ventricular response, remains sinus rhythm post semi-urgent electrical cardioversion 24 hours ago. 2. History of ischemic cardiomyopathy, systolic function improved. 3. Peripheral hypotension,--Arm pressure is 50 mm/hg less chuckie central aortic pressure 4. Vascular disease, as noted. 5. Mitral and aortic valvular disease previously moderate as outpt; mild by echo in the hospital 6. Partial small bowel obstruction with possible GI bleeding, reason for current admission. 7. 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 8. Right carotid 100%; s/p left CEA 9. ARF (>4.0) on admission back to normal Continue Amio 400 BID for total of 5 days then 400mg daily x 1 month Coreg 3.125 BID Holding other BP meds as pressure by arm with addition of 50 mm/hg is normal Large increase in TAA to 6.5 cm over 1 year; given her comorbidities even with PEVAR of thoracic aorta she would be at very high risk of complications Keep Mg>2 and K+>4.0 ?? safe to go home by herself Had conversation as an outpt with daughter and tried to explain complexity today ; Kaur is frail and getting more frail. She has very complex and progressive vascular dz. She is walking a fine line between barely stable and significant decompensation. Laboratory Results Last 24 Hours Test 07/05/16 13:07 07/05/16 21:08 07/06/16 05:45 Hemoglobin 9.4 g/dL 10.1 g/dL 10.2 g/dL Hematocrit 30.2 % 32.3 % 32.1 % Sodium Level 135 mmol/L 138 mmol/L Potassium Level 4.4 mmol/L 4.3 mmol/L Chloride Level 102 mmol/L 105 mmol/L Carbon Dioxide Level 27 mmol/L 28 mmol/L Anion Gap 6.0 mmol/L 5.0 mmol/L Blood Urea Nitrogen 24 mg/dl 14 mg/dl Creatinine 1.30 mg/dl 0.95 mg/dl Est Creatinine Clear Calc Drug Dose 29.9 ml/min 41.6 ml/min Estimated GFR () 44.2 64.6 Estimated GFR (Non- 38.2 55.8 BUN/Creatinine Ratio 18.5 14.8 Random Glucose 181 mg/dl 104 mg/dl Calcium Level 8.0 mg/dl 8.2 mg/dl White Blood Count 9.61 K/uL Red Blood Count 3.10 M/uL Mean Corpuscular Volume 103.5 fL Mean Corpuscular Hemoglobin 32.9 pg Mean Corpuscular Hemoglobin Concent 31.8 g/dl Platelet Count 193 K/uL Mean Platelet Volume 10.5 fL Neutrophils (%) (Auto) 72.6 % Lymphocytes (%) (Auto) 13.6 % Monocytes (%) (Auto) 10.8 % Eosinophils (%) (Auto) 2.4 % Basophils (%) (Auto) 0.1 % Neutrophils # (Auto) 6.97 K/uL Lymphocytes # (Auto) 1.31 K/uL Monocytes # (Auto) 1.04 K/uL Eosinophils # (Auto) 0.23 K/uL Basophils # (Auto) 0.01 K/uL RDW Standard Deviation 53.7 fL RDW Coefficient of Variation 14.2 % Immature Granulocyte % (Auto) 0.5 % Immature Granulocyte # (Auto) 0.05 K/uL Magnesium Level 2.0 mg/dl
[2016-07-06] MEDS: CEFTRIAXONE SOD INJ 1 GM in DEXTROSE 5% ADD-VANTAGE 50ML 50 ML IV SCH (12:00)
--- NOTE | 2016-07-06 16:05 | Gastroenterology Progress Note ---
Progress Note Date of Service: Jul 06, 2016 Subjective Pt evaluation today including: conversation w/ patient, physical exam, chart review, lab review, review of inpatient medication list Pt reports tolerating [place] diet, had several BMs today, w/o dark stools. Also denies any n/v, hematemesis. Hgb stable around 10 for a few days now. Review of Systems Constitutional: No chills, No fever Respiratory: + shortness of breath, No cough Cardiac: No chest pain, No edema Abdomen: No GI bleeding, No nausea, No pain, No vomiting Medications Current Inpatient Medications Medications (Trade) Dose Ordered Sig/Nicko Route Start Time Stop Time Status Last Admin Dose Admin Heparin Sodium (Porcine) (Heparin Sq 5000 Unit/0.5ml) 5,000 unit Q12 SQ 07/02/16 21:00 08/01/16 20:59 Future hold 07/06/16 07:41 5,000 UNIT Acetaminophen (Tylenol Tab) 650 mg Q4H PRN PO 07/02/16 16:30 08/01/16 16:29 Ondansetron HCl (Zofran Inj) 4 mg Q6H PRN IV 07/02/16 16:30 08/01/16 16:29 Aspirin (Ecotrin Tab) 81 mg DAILY PO 07/03/16 09:00 08/02/16 08:59 Future Hold 07/03/16 08:34 81 MG Atorvastatin Calcium (Lipitor Tab) 80 mg HS PO 07/02/16 21:00 08/01/16 20:59 Future hold 07/05/16 22:28 80 MG Clopidogrel Bisulfate (plAVix TAB) 75 mg QAM PO 07/03/16 09:00 08/02/16 08:59 Future Hold 07/03/16 08:34 75 MG Levothyroxine Sodium (Synthroid Tab) 125 mcg DAILYBB PO 07/03/16 09:00 08/02/16 08:59 Future hold 07/06/16 06:19 125 MCG Metoprolol Tartrate 5 mg 5 mg Q4H PRN IV 07/04/16 08:00 08/03/16 07:59 Ceftriaxone Sodium/Dextrose (Rocephin Inj/ Dextrose Add-[place] 50ML) 50 ml @ 100 mls/hr Q24H IV 07/05/16 12:00 07/15/16 11:59 07/05/16 12:09 100 MLS/HR Carvedilol (Coreg Tab) 3.125 mg BID PO 07/05/16 21:00 08/04/16 20:59 07/06/16 07:37 3.125 MG Amiodarone HCl (Cordarone Tab) 400 mg BID PO 07/05/16 21:00 08/04/16 20:59 07/06/16 07:37 400 MG Pantoprazole Sodium (Protonix Tab) 40 mg BID PO 07/06/16 21:00 08/05/16 20:59 Objective Vital Signs Date Time Temp Pulse Resp B/P Pulse Ox O2 Delivery O2 Flow Rate FiO2 07/06/16 15:37 36.3 71 21 94 Nasal Cannula 2.0 07/06/16 13:19 93/30 07/06/16 12:00 Nasal Cannula 2.0 07/06/16 11:22 36.6 66 20 148/71 96 Nasal Cannula 2.0 07/06/16 08:00 Nasal Cannula 2.0 07/06/16 07:13 36.5 77 20 180/91 94 07/06/16 04:13 37.3 66 22 176/45 96 Nasal Cannula 2.0 07/06/16 04:00 Nasal Cannula 2.0 07/05/16 23:59 Nasal Cannula 2.0 07/05/16 23:51 37.2 70 22 136/62 93 Nasal Cannula 2.0 07/05/16 20:00 Nasal Cannula 2.0 07/05/16 19:36 37.0 71 20 160/105 95 Nasal Cannula 2.0 07/05/16 16:00 36.5 72 18 156/58 97 Nasal Cannula 2.0 07/05/16 16:00 Nasal Cannula 2.0 Physical Exam General Appearance: WD/WN, no apparent distress Eyes: normal inspection, PERRL, EOMI Neck: supple, no JVD, trachea midline Respiratory/Chest: no respiratory distress, no accessory muscle use, + decreased breath sounds Cardiovascular: regular rate, rhythm, no gallop, no murmur Abdomen: normal bowel sounds, non tender, soft Extremities: normal inspection, no pedal edema, no calf tenderness Neurologic/Psych: alert, normal mood/affect, oriented x 3 Skin: normal color, no jaundice, no rash Laboratory Results Last 24 Hours Test 07/05/16 21:08 07/06/16 05:45 Hemoglobin 10.1 g/dL 10.2 g/dL Hematocrit 32.3 % 32.1 % White Blood Count 9.61 K/uL Red Blood Count 3.10 M/uL Mean Corpuscular Volume 103.5 fL Mean Corpuscular Hemoglobin 32.9 pg Mean Corpuscular Hemoglobin Concent 31.8 g/dl Platelet Count 193 K/uL Mean Platelet Volume 10.5 fL Neutrophils (%) (Auto) 72.6 % Lymphocytes (%) (Auto) 13.6 % Monocytes (%) (Auto) 10.8 % Eosinophils (%) (Auto) 2.4 % Basophils (%) (Auto) 0.1 % Neutrophils # (Auto) 6.97 K/uL Lymphocytes # (Auto) 1.31 K/uL Monocytes # (Auto) 1.04 K/uL Eosinophils # (Auto) 0.23 K/uL Basophils # (Auto) 0.01 K/uL RDW Standard Deviation 53.7 fL RDW Coefficient of Variation 14.2 % Immature Granulocyte % (Auto) 0.5 % Immature Granulocyte # (Auto) 0.05 K/uL Sodium Level 138 mmol/L Potassium Level 4.3 mmol/L Chloride Level 105 mmol/L Carbon Dioxide Level 28 mmol/L Anion Gap 5.0 mmol/L Blood Urea Nitrogen 14 mg/dl Creatinine 0.95 mg/dl Est Creatinine Clear Calc Drug Dose 41.6 ml/min Estimated GFR () 64.6 Estimated GFR (Non- 55.8 BUN/Creatinine Ratio 14.8 Random Glucose 104 mg/dl Calcium Level 8.2 mg/dl Magnesium Level 2.0 mg/dl Assessment and Plan Pt is a 80 y/o female seen for possible UGI bleeding ? blood in NGT. She had this placed for partial SBO seen on imaging studies. H/H stable around 10 w/o transfusion. No signs of hematemesis or dark/bloody stools in recent BMs. She is also tolerating [place] diet. - Advance diet as tolerated - DC PPI gtt; switch to PO BID form - Monitor H/H and transfuse prn. - Defer endoscopic eval for now; will sign off pls call if new questions or concerns arise. I performed a history and physical examination of the patient. I have discussed the patient's case, impression and plan with BRO Bowles on . Her note reflects my findings and plan. Switch to oral agents and advance diet as tolerates. Martin Martini MD
--- NOTE | 2016-07-06 19:02 | Hospitalist Progress Note ---
Hospitalist Progress Note Date of Service Jul 06, 2016. Subjective Pt evaluation today including: conversation w/ patient, physical exam, chart review No CP or SOB. Tolerating oral diet Medications Medications (Trade) Dose Ordered Sig/Nicko Route Start Time Stop Time Status Last Admin Dose Admin Carvedilol (Coreg Tab) 3.125 mg BID PO 07/05/16 21:00 08/04/16 20:59 07/06/16 07:37 3.125 MG Amiodarone HCl (Cordarone Tab) 400 mg BID PO 07/05/16 21:00 08/04/16 20:59 07/06/16 07:37 400 MG Objective Vital Signs Date Time Temp Pulse Resp B/P Pulse Ox O2 Delivery O2 Flow Rate FiO2 07/06/16 16:00 Nasal Cannula 2.0 07/06/16 15:37 36.3 71 21 94 Nasal Cannula 2.0 07/06/16 13:19 93/30 07/06/16 12:00 Nasal Cannula 2.0 07/06/16 11:22 36.6 66 20 148/71 96 Nasal Cannula 2.0 07/06/16 08:00 Nasal Cannula 2.0 07/06/16 07:13 36.5 77 20 180/91 94 07/06/16 04:13 37.3 66 22 176/45 96 Nasal Cannula 2.0 07/06/16 04:00 Nasal Cannula 2.0 07/05/16 23:59 Nasal Cannula 2.0 07/05/16 23:51 37.2 70 22 136/62 93 Nasal Cannula 2.0 07/05/16 20:00 Nasal Cannula 2.0 07/05/16 19:36 37.0 71 20 160/105 95 Nasal Cannula 2.0 Physical Exam Eyes: normal inspection ENT: normal ENT inspection Neck: supple Respiratory/Chest: chest non-tender, lungs clear Cardiovascular: regular rate, rhythm, + systolic murmur Abdomen: normal bowel sounds, soft Extremities: normal range of motion Neurologic/Psychiatric: care trainer II-XII nml as tested, alert, oriented x 3 Skin: normal color Laboratory Results Last 24 Hours Test 07/05/16 21:08 07/06/16 05:45 Hemoglobin 10.1 g/dL 10.2 g/dL Hematocrit 32.3 % 32.1 % White Blood Count 9.61 K/uL Red Blood Count 3.10 M/uL Mean Corpuscular Volume 103.5 fL Mean Corpuscular Hemoglobin 32.9 pg Mean Corpuscular Hemoglobin Concent 31.8 g/dl Platelet Count 193 K/uL Mean Platelet Volume 10.5 fL Neutrophils (%) (Auto) 72.6 % Lymphocytes (%) (Auto) 13.6 % Monocytes (%) (Auto) 10.8 % Eosinophils (%) (Auto) 2.4 % Basophils (%) (Auto) 0.1 % Neutrophils # (Auto) 6.97 K/uL Lymphocytes # (Auto) 1.31 K/uL Monocytes # (Auto) 1.04 K/uL Eosinophils # (Auto) 0.23 K/uL Basophils # (Auto) 0.01 K/uL RDW Standard Deviation 53.7 fL RDW Coefficient of Variation 14.2 % Immature Granulocyte % (Auto) 0.5 % Immature Granulocyte # (Auto) 0.05 K/uL Sodium Level 138 mmol/L Potassium Level 4.3 mmol/L Chloride Level 105 mmol/L Carbon Dioxide Level 28 mmol/L Anion Gap 5.0 mmol/L Blood Urea Nitrogen 14 mg/dl Creatinine 0.95 mg/dl Est Creatinine Clear Calc Drug Dose 41.6 ml/min Estimated GFR () 64.6 Estimated GFR (Non- 55.8 BUN/Creatinine Ratio 14.8 Random Glucose 104 mg/dl Calcium Level 8.2 mg/dl Magnesium Level 2.0 mg/dl Assessment and Plan 80 yo F Partial SBO, PARAS developed Gram negative sepsis from urinary source poa, afib rvr and cardiogenic shock treated with emergent cardioversion Gram negative sepsis, e coli in blood and urine, on IV Zosyn, proves to be E coli can streamline antiboitics Afib now nsr is on amiodarone,conversion to po, will use restart home coreg in place of metoprolol. No anti coag due to hx of GI bleed. Partial SBO: ng removed, having bowel movement, ng output was dark and concerns for gib, ppi gtt, did drop hgb by 2 grams gastroenterology will decide as hgb is followed. Tolerating oral diet. Chronic systolic HF/CAD with h/o IQRA:ECHO shows good EF and moderate MR, mild . PARAS - IMPROVING: held Lisinopril Bumex and Aldactone due to dehydration, x rays shows some right sided pleural effusion - Enlarging AAA: she says she had a repair at [facility] years ago- now on CT the AAA is > 6cm in diameter: - Vascular surgery consult appreciated., No intervention at this time, repeat U/ S 07/04 no enlargement or dissection noted subacute right rib fractures no pain at this time Diarrhea:- C.diff negative- Stool studies pending Dyslipidemia: Atorvastatin held secondary to elevate CPK DVT prophylaxis: Heparin renal dose adjustment Code Status: LEVEL V, DNR PT/OT eval
[2016-07-06] MEDS: ATORVASTATIN 40 MG TAB PO SCH (21:22)
[2016-07-06] MEDS: PANTOprazole SOD 40 MG TAB PO SCH (21:22)
[2016-07-07] VITALS (8 sets, daily range): BP systolic 110–207; BP diastolic 21–115; PULSE 67–74; TEMP 36.5–36.8; O2SAT 92–97
[2016-07-07] MEDS: LEVOTHYROXINE 125 MCG TAB PO SCH (05:44)
[2016-07-07 06:19] LABS: COMPLETE YES; EOS % 3.5 %; HEMATOCRIT 33.8 % (37-47); IG% 1.3 %; LYMPH % 17.3 %; LYMPH ABS # 1.38 K/uL (1.2-3.4); MEAN CORPUSCULAR HEMOGLOBIN 32.6 pg (25-34); MEAN CORPUSCULAR HGB CONC 31.7 g/dl (32-36); MEAN PLATELET VOLUME 10.7 fL (7.4-10.4); MONO % 13.3 %; NEUT % 64.6 %; PLATELET COUNT 186 K/uL (130-400); RED BLOOD COUNT 3.28 M/uL (4.2-5.4); WHITE BLOOD COUNT 7.96 K/uL (4.8-10.8)
[2016-07-07 07:14] LABS: BUN/CREATININE RATIO 10.1 (10-20); CALCIUM 8.1 mg/dl (8.5-10.1); CREATININE 0.9 mg/dl (0.60-1.20); POTASSIUM 4.1 mmol/L (3.5-5.1)
[2016-07-07] MEDS: CARVEDILOL 3.125 MG TAB PO SCH ×2 (07:38→20:05)
[2016-07-07] MEDS: AMIODARONE 200 MG TAB PO SCH ×2 (07:38→20:05)
[2016-07-07] MEDS: PANTOprazole SOD 40 MG TAB PO SCH ×2 (07:39→20:05)
[2016-07-07] MEDS: HEPARIN SOD 5000 UNIT/0.5 ML CARP SQ SCH ×2 (07:42→20:07)
--- NOTE | 2016-07-07 09:13 | Cardiology Follow-Up ---
Subjective General Date of Service: Jul 07, 2016. Pt evaluation today including: conversation w/ patient, conversation w/ family , chart review, lab review, review of studies History of Present Illness The patient is a 80 year old female Allergies Coded Allergies: Ramipril (Verified Allergy, Unknown, Cough, 07/02/16) Social History Smoking Status: Never Smoker Hx Tobacco Use In Past Year?: No Hx Alcohol Use - Type And Amou: No Hx Substance Use - Type And Am: No Problem List Medical Problems: (1) Congestive heart failure Status: Acute (2) Dehydration Status: Acute (3) Hypotension Status: Acute (4) Lactic acidosis Status: Acute (5) Pulmonary edema Status: Acute (6) Sepsis Status: Acute (7) Stroke Status: Acute Review of Systems Respiratory: No cough, No dyspnea at rest, No shortness of breath Cardiac: No chest pain, No edema, No palpitations Physical Exam Vital Signs Last Vital Signs Documentation Date Time Temp Pulse Resp B/P Pulse Ox O2 Delivery O2 Flow Rate FiO2 07/07/16 08:00 Nasal Cannula 2.0 07/07/16 07:31 36.8 67 20 168/67 97 07/04/16 10:38 40 Physical Exam Constitutional: General Apperance: too thin Level of Distress: NAD, chronically ill Psychiatric: Mental Status: active & alert, normal mood, normal affect Lungs: Respiratory effort: no dyspnea Auscultation: no rales/crackles, no rhonchi, decreased breath sounds Cardiovascular: Heart Auscultation: III/ TINO Abdomen: Bowel Sounds: normal Inspection & Palpation: soft, non-distended Extremities: no edema Assessment and Plan Assessment and Plan IMPRESSION: 1. Paroxysmal atrial fibrillation with rapid ventricular response, remains sinus rhythm post semi-urgent electrical cardioversion 24 hours ago. 2. History of ischemic cardiomyopathy, systolic function improved. 3. Peripheral hypotension,--Arm pressure is 50 mm/hg less chuckie central aortic pressure 4. Vascular disease, as noted. 5. Mitral and aortic valvular disease previously moderate as outpt; mild by echo in the hospital 6. Partial small bowel obstruction with possible GI bleeding, reason for current admission. 7. 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 8. Right carotid 100%; s/p left CEA 9. ARF (>4.0) on admission back to normal Continue Amio 400 BID for total of 5 days (through 07/09) then 400mg daily x 1 month then 200mg daily Coreg 3.125 BID Holding other BP meds as pressure by arm with addition of 50 mm/hg is normal, need to use arm pressures; leg pressures are inaccurate Large increase (10 mm) in descending TAA to 6.5 cm over 1 year; given her comorbidities even with PEVAR of thoracic aorta she would be at very high risk of complications; if the family wants an opinion and assessment of risk she likely would need to go to [facility] or [facility] for opinion Had conversation as an outpt with daughter and tried to explain complexity to family yesterday; Kaur is frail and getting more frail. She has very complex and progressive vascular dz. She is walking a fine line between barely stable and significant decompensation. Ok to rehab when ready from medicine standpoint, d/c carlene, ambulate and assess O2 at rest and with ambulation Laboratory Results Last 24 Hours Test 07/07/16 05:40 White Blood Count 7.96 K/uL Red Blood Count 3.28 M/uL Hemoglobin 10.7 g/dL Hematocrit 33.8 % Mean Corpuscular Volume 103.0 fL Mean Corpuscular Hemoglobin 32.6 pg Mean Corpuscular Hemoglobin Concent 31.7 g/dl Platelet Count 186 K/uL Mean Platelet Volume 10.7 fL Neutrophils (%) (Auto) 64.6 % Lymphocytes (%) (Auto) 17.3 % Monocytes (%) (Auto) 13.3 % Eosinophils (%) (Auto) 3.5 % Basophils (%) (Auto) 0.0 % Neutrophils # (Auto) 5.14 K/uL Lymphocytes # (Auto) 1.38 K/uL Monocytes # (Auto) 1.06 K/uL Eosinophils # (Auto) 0.28 K/uL Basophils # (Auto) 0.00 K/uL RDW Standard Deviation 51.8 fL RDW Coefficient of Variation 13.8 % Immature Granulocyte % (Auto) 1.3 % Immature Granulocyte # (Auto) 0.10 K/uL Sodium Level 139 mmol/L Potassium Level 4.1 mmol/L Chloride Level 104 mmol/L Carbon Dioxide Level 31 mmol/L Anion Gap 4.0 mmol/L Blood Urea Nitrogen 9 mg/dl Creatinine 0.90 mg/dl Est Creatinine Clear Calc Drug Dose 38.1 ml/min Estimated GFR () 69.0 Estimated GFR (Non- 59.5 BUN/Creatinine Ratio 10.1 Random Glucose 98 mg/dl Calcium Level 8.1 mg/dl
--- NOTE | 2016-07-07 10:43 | Hospitalist Progress Note ---
Hospitalist Progress Note Date of Service Jul 07, 2016. Subjective Pt evaluation today including: conversation w/ patient, conversation w/ family , physical exam, chart review Medications Medications (Trade) Dose Ordered Sig/Nicko Route Start Time Stop Time Status Last Admin Dose Admin Pantoprazole Sodium (Protonix Tab) 40 mg BID PO 07/06/16 21:00 08/05/16 20:59 07/07/16 07:39 40 MG Objective Vital Signs Date Time Temp Pulse Resp B/P Pulse Ox O2 Delivery O2 Flow Rate FiO2 07/07/16 08:00 Nasal Cannula 2.0 07/07/16 07:31 36.8 67 20 168/67 97 Nasal Cannula 2.0 07/07/16 04:00 Nasal Cannula 2.0 07/07/16 03:34 36.8 68 18 156/72 97 Nasal Cannula 2.0 07/07/16 00:00 Nasal Cannula 2.0 07/06/16 23:52 36.6 72 18 179/72 94 Nasal Cannula 2.0 07/06/16 20:17 36.7 81 21 175/95 91 Room Air 07/06/16 20:00 Room Air 07/06/16 16:00 Nasal Cannula 2.0 07/06/16 15:37 36.3 71 21 94 Nasal Cannula 2.0 07/06/16 13:19 93/30 07/06/16 12:00 Nasal Cannula 2.0 07/06/16 11:22 36.6 66 20 148/71 96 Nasal Cannula 2.0 Physical Exam General Appearance: WD/WN Eyes: normal inspection Neck: supple, no adenopathy, no JVD Respiratory/Chest: chest non-tender, lungs clear Cardiovascular: regular rate, rhythm, + systolic murmur Abdomen: normal bowel sounds, soft Neurologic/Psychiatric: digital editor II-XII nml as tested, alert, oriented x 3 Skin: + pallor Laboratory Results Last 24 Hours Test 07/07/16 05:40 White Blood Count 7.96 K/uL Red Blood Count 3.28 M/uL Hemoglobin 10.7 g/dL Hematocrit 33.8 % Mean Corpuscular Volume 103.0 fL Mean Corpuscular Hemoglobin 32.6 pg Mean Corpuscular Hemoglobin Concent 31.7 g/dl Platelet Count 186 K/uL Mean Platelet Volume 10.7 fL Neutrophils (%) (Auto) 64.6 % Lymphocytes (%) (Auto) 17.3 % Monocytes (%) (Auto) 13.3 % Eosinophils (%) (Auto) 3.5 % Basophils (%) (Auto) 0.0 % Neutrophils # (Auto) 5.14 K/uL Lymphocytes # (Auto) 1.38 K/uL Monocytes # (Auto) 1.06 K/uL Eosinophils # (Auto) 0.28 K/uL Basophils # (Auto) 0.00 K/uL RDW Standard Deviation 51.8 fL RDW Coefficient of Variation 13.8 % Immature Granulocyte % (Auto) 1.3 % Immature Granulocyte # (Auto) 0.10 K/uL Sodium Level 139 mmol/L Potassium Level 4.1 mmol/L Chloride Level 104 mmol/L Carbon Dioxide Level 31 mmol/L Anion Gap 4.0 mmol/L Blood Urea Nitrogen 9 mg/dl Creatinine 0.90 mg/dl Est Creatinine Clear Calc Drug Dose 38.1 ml/min Estimated GFR () 69.0 Estimated GFR (Non- 59.5 BUN/Creatinine Ratio 10.1 Random Glucose 98 mg/dl Calcium Level 8.1 mg/dl Assessment and Plan 80 yo F Partial SBO, PARAS developed Gram negative sepsis from urinary source poa, afib rvr and cardiogenic shock treated with emergent cardioversion Gram negative sepsis, e coli in blood and urine, on IV Zosyn, proves to be E coli can streamline antiboitics Afib now nsr is on amiodarone,conversion to po, will use restart home coreg in place of metoprolol. No anti coag due to hx of GI bleed. Partial SBO: ng removed, having bowel movement, ng output was dark and concerns for gib, ppi gtt, did drop hgb by 2 grams gastroenterology will decide as hgb is followed. Tolerating oral diet. Chronic systolic HF/CAD with h/o IQRA:ECHO shows good EF and moderate MR, mild . PARAS - Improved and renal function is back to baseline. - Enlarging AAA: she says she had a repair at [facility] years ago- now on CT the AAA is > 6cm in diameter: - Vascular surgery consult appreciated., No intervention at this time, repeat U/ S 07/04 no enlargement or dissection noted subacute right rib fractures no pain at this time Diarrhea:- C.diff negative- Stool studies pending Dyslipidemia: Atorvastatin held secondary to elevate CPK DVT prophylaxis: Heparin renal dose adjustment Code Status: LEVEL V, DNR PT/OT eval Dispo: Rehab
[2016-07-07] MEDS: CEFTRIAXONE SOD INJ 1 GM in DEXTROSE 5% ADD-VANTAGE 50ML 50 ML IV SCH (12:38)
[2016-07-07] MEDS: ATORVASTATIN 40 MG TAB PO SCH (20:05)
[2016-07-08] VITALS (12 sets, daily range): BP systolic 95–131; BP diastolic 30–60; PULSE 67–78; TEMP 36.4–37; O2SAT 89–97
[2016-07-08 06:16] LABS: BASO % 0.1 %; BASO ABS # 0.01 K/uL (0-0.2); COMPLETE YES; EOS % 2.5 %; HEMATOCRIT 33.1 % (37-47); IG% 1.3 %; LYMPH % 16.9 %; LYMPH ABS # 1.47 K/uL (1.2-3.4); MEAN CELL VOLUME 102.2 fL (80-100); MEAN CORPUSCULAR HEMOGLOBIN 32.7 pg (25-34); MEAN PLATELET VOLUME 10.8 fL (7.4-10.4); MONO % 10.7 %; NEUT % 68.5 %; PLATELET COUNT 193 K/uL (130-400); RED BLOOD COUNT 3.24 M/uL (4.2-5.4); WHITE BLOOD COUNT 8.71 K/uL (4.8-10.8)
[2016-07-08] MEDS: LEVOTHYROXINE 125 MCG TAB PO SCH (06:18)
[2016-07-08 06:53] LABS: BUN/CREATININE RATIO 10.1 (10-20); CALCIUM 8.3 mg/dl (8.5-10.1); CREATININE 0.92 mg/dl (0.60-1.20); POTASSIUM 4.1 mmol/L (3.5-5.1)
--- NOTE | 2016-07-08 08:05 | Cardiology Follow-Up ---
Subjective General Date of Service: Jul 08, 2016. Pt evaluation today including: conversation w/ patient, chart review, lab review, review of studies History of Present Illness The patient is a 80 year old female Allergies Coded Allergies: Ramipril (Verified Allergy, Unknown, Cough, 07/02/16) Social History Smoking Status: Never Smoker Hx Tobacco Use In Past Year?: No Hx Alcohol Use - Type And Amou: No Hx Substance Use - Type And Am: No Problem List Medical Problems: (1) Congestive heart failure Status: Acute (2) Dehydration Status: Acute (3) Hypotension Status: Acute (4) Lactic acidosis Status: Acute (5) Pulmonary edema Status: Acute (6) Sepsis Status: Acute (7) Stroke Status: Acute Review of Systems Respiratory: + shortness of breath (last night), No cough, No dyspnea at rest Cardiac: No chest pain, No edema, No palpitations Physical Exam Vital Signs Last Vital Signs Documentation Date Time Temp Pulse Resp B/P Pulse Ox O2 Delivery O2 Flow Rate FiO2 07/08/16 04:39 36.4 70 18 105/32 95 Nasal Cannula 2.0 07/04/16 10:38 40 Physical Exam Constitutional: General Apperance: too thin Level of Distress: NAD, chronically ill Psychiatric: Mental Status: active & alert, normal mood, normal affect Lungs: Respiratory effort: no dyspnea Auscultation: no rales/crackles, no rhonchi, decreased breath sounds Cardiovascular: Heart Auscultation: III/ TINO Abdomen: Bowel Sounds: normal Inspection & Palpation: soft, non-distended Extremities: no edema Assessment and Plan Assessment and Plan IMPRESSION: 1. Paroxysmal atrial fibrillation with rapid ventricular response, remains sinus rhythm post semi-urgent electrical cardioversion 24 hours ago. 2. History of ischemic cardiomyopathy, systolic function improved. 3. Peripheral hypotension,--Arm pressure is 50 mm/hg less chuckie central aortic pressure 4. Vascular disease, as noted. 5. Mitral and aortic valvular disease previously moderate as outpt; mild by echo in the hospital 6. Partial small bowel obstruction with possible GI bleeding, reason for current admission. 7. 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 8. Right carotid 100%; s/p left CEA 9. ARF (>4.0) on admission back to normal Continue Amio 400 BID for total of 5 days (through 07/09) then 400mg daily x 1 month then 200mg daily Coreg 3.125 BID Holding other BP meds as pressure by arm with addition of 50 mm/hg is normal, need to use arm pressures; leg pressures are inaccurate Large increase (10 mm) in descending TAA to 6.5 cm over 1 year; given her comorbidities even with PEVAR of thoracic aorta she would be at very high risk of complications; if the family wants an opinion and assessment of risk she likely would need to go to [facility] or [facility] for opinion Had conversation as an outpt with daughter and tried to explain complexity to family; Kaur is frail and getting more frail. She has very complex and progressive vascular dz. She is walking a fine line between barely stable and significant decompensation. Ok to rehab when ready from medicine standpoint, d/c carlene, ambulate and assess O2 at rest and with ambulation will need to watch for the potential need to restart diuretics. weigh daily at rehab and if weights up restart bumex at low dose Laboratory Results Last 24 Hours Test 07/08/16 05:26 White Blood Count 8.71 K/uL Red Blood Count 3.24 M/uL Hemoglobin 10.6 g/dL Hematocrit 33.1 % Mean Corpuscular Volume 102.2 fL Mean Corpuscular Hemoglobin 32.7 pg Mean Corpuscular Hemoglobin Concent 32.0 g/dl Platelet Count 193 K/uL Mean Platelet Volume 10.8 fL Neutrophils (%) (Auto) 68.5 % Lymphocytes (%) (Auto) 16.9 % Monocytes (%) (Auto) 10.7 % Eosinophils (%) (Auto) 2.5 % Basophils (%) (Auto) 0.1 % Neutrophils # (Auto) 5.97 K/uL Lymphocytes # (Auto) 1.47 K/uL Monocytes # (Auto) 0.93 K/uL Eosinophils # (Auto) 0.22 K/uL Basophils # (Auto) 0.01 K/uL RDW Standard Deviation 51.6 fL RDW Coefficient of Variation 13.7 % Immature Granulocyte % (Auto) 1.3 % Immature Granulocyte # (Auto) 0.11 K/uL Sodium Level 139 mmol/L Potassium Level 4.1 mmol/L Chloride Level 102 mmol/L Carbon Dioxide Level 32 mmol/L Anion Gap 5.0 mmol/L Blood Urea Nitrogen 9 mg/dl Creatinine 0.92 mg/dl Est Creatinine Clear Calc Drug Dose 37.3 ml/min Estimated GFR () 67.2 Estimated GFR (Non- 58.0 BUN/Creatinine Ratio 10.1 Random Glucose 106 mg/dl Calcium Level 8.3 mg/dl
[2016-07-08] MEDS: PANTOprazole SOD 40 MG TAB PO SCH ×2 (09:24→20:26)
[2016-07-08] MEDS: AMIODARONE 200 MG TAB PO SCH ×2 (09:25→20:24)
[2016-07-08] MEDS: CARVEDILOL 3.125 MG TAB PO SCH ×2 (09:25→20:25)
[2016-07-08] MEDS: HEPARIN SOD 5000 UNIT/0.5 ML CARP SQ SCH ×2 (09:29→20:27)
[2016-07-08] MEDS: CEFTRIAXONE SOD INJ 1 GM in DEXTROSE 5% ADD-VANTAGE 50ML 50 ML IV SCH (11:49)
--- NOTE | 2016-07-08 15:10 | Hospitalist Progress Note ---
Hospitalist Progress Note Date of Service Jul 08, 2016. Subjective c/o gen. weakness. No CP. Objective Vital Signs Date Time Temp Pulse Resp B/P Pulse Ox O2 Delivery O2 Flow Rate FiO2 07/08/16 14:27 94 Nasal Cannula 2.0 07/08/16 14:20 89 Room Air 07/08/16 12:00 Nasal Cannula 2.0 07/08/16 11:52 36.6 75 20 110/60 96 Nasal Cannula 2.0 07/08/16 10:26 75 97 07/08/16 08:00 Nasal Cannula 2.0 07/08/16 07:42 37.0 76 20 131/51 94 2.0 07/08/16 04:39 36.4 70 18 105/32 95 Nasal Cannula 2.0 07/08/16 04:00 Nasal Cannula 2.0 07/08/16 00:01 96 Nasal Cannula 2.0 07/07/16 23:22 36.5 74 20 110/50 96 Nasal Cannula 2.0 07/07/16 20:02 112/43 07/07/16 20:00 92 Room Air 07/07/16 19:37 36.7 72 18 197/85 92 Room Air 207/81 07/07/16 15:51 36.8 73 18 189/115 93 Room Air Physical Exam General Appearance: WD/WN Eyes: normal inspection Neck: supple, no JVD Respiratory/Chest: chest non-tender, lungs clear Cardiovascular: + systolic murmur, + irregularly irregular Abdomen: normal bowel sounds, non tender, soft Neurologic/Psychiatric: no motor/sensory deficits, alert, oriented x 3 Laboratory Results Last 24 Hours Test 07/08/16 05:26 White Blood Count 8.71 K/uL Red Blood Count 3.24 M/uL Hemoglobin 10.6 g/dL Hematocrit 33.1 % Mean Corpuscular Volume 102.2 fL Mean Corpuscular Hemoglobin 32.7 pg Mean Corpuscular Hemoglobin Concent 32.0 g/dl Platelet Count 193 K/uL Mean Platelet Volume 10.8 fL Neutrophils (%) (Auto) 68.5 % Lymphocytes (%) (Auto) 16.9 % Monocytes (%) (Auto) 10.7 % Eosinophils (%) (Auto) 2.5 % Basophils (%) (Auto) 0.1 % Neutrophils # (Auto) 5.97 K/uL Lymphocytes # (Auto) 1.47 K/uL Monocytes # (Auto) 0.93 K/uL Eosinophils # (Auto) 0.22 K/uL Basophils # (Auto) 0.01 K/uL RDW Standard Deviation 51.6 fL RDW Coefficient of Variation 13.7 % Immature Granulocyte % (Auto) 1.3 % Immature Granulocyte # (Auto) 0.11 K/uL Sodium Level 139 mmol/L Potassium Level 4.1 mmol/L Chloride Level 102 mmol/L Carbon Dioxide Level 32 mmol/L Anion Gap 5.0 mmol/L Blood Urea Nitrogen 9 mg/dl Creatinine 0.92 mg/dl Est Creatinine Clear Calc Drug Dose 37.3 ml/min Estimated GFR () 67.2 Estimated GFR (Non- 58.0 BUN/Creatinine Ratio 10.1 Random Glucose 106 mg/dl Calcium Level 8.3 mg/dl Assessment and Plan 80 yo F Partial SBO, PARAS developed Gram negative sepsis from urinary source poa, afib rvr and cardiogenic shock treated with emergent cardioversion Gram negative sepsis, e coli in blood and urine, on IV Zosyn, proves to be E coli can streamline antiboitics Afib now nsr is on amiodarone,conversion to po, will use restart home coreg in place of metoprolol. No anti coag due to hx of GI bleed. Partial SBO: ng removed, having bowel movement, ng output was dark and concerns for gib, ppi gtt, did drop hgb by 2 grams gastroenterology will decide as hgb is followed. Tolerating oral diet. Chronic systolic HF/CAD with h/o IQRA:ECHO shows good EF and moderate MR, mild . PARAS - Improved and renal function is back to baseline. - Enlarging AAA: she says she had a repair at [facility] years ago- now on CT the AAA is > 6cm in diameter: - Vascular surgery consult appreciated., No intervention at this time, repeat U/ S 07/04 no enlargement or dissection noted subacute right rib fractures no pain at this time Diarrhea:- C.diff negative- Stool studies pending Dyslipidemia: Atorvastatin held secondary to elevate CPK DVT prophylaxis: Heparin renal dose adjustment Code Status: LEVEL V, DNR PT/OT eval Dispo: Rehab, likely tomorrow.
--- NOTE | 2016-07-08 19:13 | DIAGNOSTIC IMAGING REPORT ---
CHEST ONE VIEW PORTABLE HISTORY: Short of breath. COMPARISON: Chest 07/05/2016. FINDINGS: Improvement in the patchy bibasilar densities and trace bilateral pleural effusions. The heart is stable in size. No pneumothorax. The upper lung zones are clear. No evidence for pulmonary edema. IMPRESSION: Improvement in the bibasilar densities and trace bilateral pleural effusions. Electronically signed by: Rick Bae M.D. 07/08/2016 7:11 PM Dictated Date/Time: 07/08/2016 7:10 PM
[2016-07-08] MEDS: ATORVASTATIN 40 MG TAB PO SCH (20:25)
[2016-07-09 04:03] VITALS: BP 115/47; PULSE 70; TEMP 36.6; O2SAT 97
[2016-07-09] MEDS: LEVOTHYROXINE 125 MCG TAB PO SCH (05:35)
[2016-07-09] MEDS: AMIODARONE 200 MG TAB PO SCH (08:29)
[2016-07-09] MEDS: CARVEDILOL 3.125 MG TAB PO SCH (08:30)
[2016-07-09] MEDS: PANTOprazole SOD 40 MG TAB PO SCH (08:30)
[2016-07-09 09:00] VITALS: BP 184/85; PULSE 68; TEMP 36.6; O2SAT 95
[2016-07-09] MEDS: HEPARIN SOD 5000 UNIT/0.5 ML CARP SQ SCH (09:07)
[2016-07-09 10:36] VITALS: BP 115/47; PULSE 70; TEMP 36.6; O2SAT 97
[2016-07-09 11:20] VITALS: BP 146/83; PULSE 63; TEMP 36.6; O2SAT 96
[2016-07-09] MEDS: CEFTRIAXONE SOD INJ 1 GM in DEXTROSE 5% ADD-VANTAGE 50ML 50 ML IV SCH (12:19)
[2016-07-09] MEDS ORDERED: PRT40 PO (13:03)
[2016-07-09] MEDS ORDERED: CRD200 PO ×2 (13:03→13:26)
[2016-07-09] MEDS ORDERED: CEFD300C2 PO (13:04)
--- NOTE | 2016-07-09 13:17 | Discharge Instructions ---
Discharge Instructions Date of Service Jul 09, 2016. Admission Reason for Admission: Acute Renal Failure, Lactic Acidosis Discharge Discharge Diagnosis / Problem: Rapid Atrial fibrillation,renal failure,partial small bowel obstruction Discharge Goals Goal(s): Improve function, Improve disease control, Therapeutic intervention Activity Recommendations Activity Limitations: as noted below Exercise/Sports Limitations: as tolerated (use walker while ambulating) . Instructions / Follow-Up Instructions / Follow-Up You have been treated in the hospital for acute renal failure, E. coli bacteremia, a partial small bowel obstruction and rapid atrial fibrillation. All of these have improved The following changes/additions have been made to your medication list: -amiodarone 400 mg twice daily through 07/09 then once dialy x 1 month, then 200mg once daily -Coreg 3.125 mg twice daily -Pantoprazole 40 mg twice daily -Omnicef 300 mg twice daily x 7 more days for your blood infection -discontinue Bumex -discontinue Spirolactone -discontinue norvasc -discontinue Benicar Please follow up with the following -Dr. Lange PCP in 1 week -Dr. Martini GI in 2 weeks -Dr. Novak cardiology in 2 weeks Vascular Surgery as scheduled in October, Oxygen 2 Liters-->titrate to keep O2 > 90% Call your doctor or return to the emergency department if you have any of the following symptoms: -Fever of 101F or greater -Persistent vomiting - Persistent diarrhea -Lethargy -Chest pain -Shortness of breath -severe dizziness -weakness on one side of your body Current Hospital Diet Patient's current hospital diet: AHA Diet (Heart Healthy) Discharge Diet Recommended Diet: AHA Diet (Heart Healthy), Low Sodium Diet (2gm Na) Fluid Restriction: 1500 ml (6 cups) Procedures Procedures Performed: echo -- Conclusions -- * 1. Small LV cavity size. Mild concentric LVH. * 2. LVEF 55-60%. Inferior, posterior severe hypokinesis involving base to mid segments. * 3. Normal RV size and function. * 4. Mild aortic stenosis. Trace AI * 5. Mild mitral regurgitation. * 6. Compared with prior study on 08/11/2015: LV function is improved. Aortic stenosis and mitral regurgitation appear more mild today. Procedure Details * A complete two-dimensional transthoracic echocardiogram was performed (2D, M-mode, Doppler and color flow Doppler). * The study was technically difficult. * There were technical limitations due to patient'spoor positioning Left Ventricle * The left ventricular cavity is small. * There is mild concentric left ventricular hypertrophy. * Ejection Fraction = 55-60%. * There is severe posterior wall hypokinesis. * There is severe inferior wall hypokinesis. urgernt cardioversion on 07/05 Pending Studies Studies pending at discharge: no Medical Emergencies . Who to Call and When: Medical Emergencies: If at any time you feel your situation is an emergency, please call 911 immediately. . Non-Emergent Contact Non-Emergency issues call your: Primary Care Provider, Machine Repairer Maintenance Call Non-Emergent contact if: you have a fever, you have any medication questions . . "Provider Documentation" section prepared by Anca Blackwood. . VTE Core Measure Inpt VTE Proph given/why not?: Unfractionated heparin SQ
[2016-07-09] MEDS ORDERED: TRAM-10 PO (13:23)
[2016-07-09] MEDS ORDERED: CEFD1CAP14 PO (13:23)
--- NOTE | 2016-07-09 13:30 | Discharge Summary ---
Discharge Summary Date of Service Jul 09, 2016. (Anca Blackwood PA-C) Discharge Summary Admission Date: Jul 02, 2016 at 16:21 Discharge Date: Jul 09, 2016 Discharge Disposition: Rehab Principal Diagnosis: partial SBO, acute renal failure, rapid A. 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 Chronic systolic congestive heart failure, apparently not previously hospitalized for this. Valvular heart disease (aortic stenosis felt to be [id number] in the past ) Sacroiliitis Hypertension (although listed as a problem, she notes that her blood pressures is generally 70-80 mmHg in her arms, but approximately 50 mm higher as a "core pressure" per prior central hemodynamics obtained at catheterization). Dyslipidemia Subclavian steal syndrome Elevated fasting glucose Spinal stenosis Toxic diffuse goiter Graves ophthalmopathy Decreased hearing Pulmonary hypertension Cerebrovascular accident without residual deficits Incisional hernia History of concussion Multiple small bowel obstructions. Immunizations: Have You Had Influenza Vaccine: Yes Influenza Vaccine Date: Jan 12, 2013 History of Tetanus Vaccine?: Unknown History of Pneumococcal: Yes History of Hepatitis B Vaccine: Unknown Procedures: Echo Urgent cardioversion Consultations: Cardiology GI Critical care (Anca Blackwood PA-C) Problems/Secondary Diagnoses: Gram negative sepsis with bacteremia/septicemia E. coli UTI POA Cardiogenic shock treated with emergent cardioversion Acute hypercapnic respiratory failure requiring BiPAP Suspected upper GI bleeding secondary to NGT trauma Lactic acidosis Hypothyroidism (Vero Bynum MD) Medication Reconciliation New Medications: Cefdinir (Omnicef) 300 Mg Cap 300 MG PO Q12H for 7 Days, #14 CAP Amiodarone HCl (Amiodarone HCl) 200 Mg Tab 400 MG PO BID for 30 Days, #60 TAB Pantoprazole (Pantoprazole Sodium) 40 Mg Tab 40 MG PO BID for 30 Days, #60 TAB Continued Medications: Acetaminophen (Tylenol) 500 Mg Tab 2 TAB PO Q6 for 2 Days, #20 TAB 3 Refills Aspirin (Aspirin Ec) 81 Mg Tab 81 MG PO DAILY Atorvastatin (Lipitor) 80 Mg Tab 80 MG PO HS, TAB Carvedilol (Coreg) 3.125 Mg Tab 1 TAB PO BID for 30 Days, #60 TAB 3 Refills Cholecalciferol (Vitamin D3) 2,000 Unit Cap 1 CAP PO HS for 90 Days, CAP 3 Refills Clopidogrel (Plavix) 75 Mg Tab 75 MG PO QAM, TAB Levothyroxine Sodium (Synthroid) 125 Mcg Tab 125 MCG PO QAM Nitroglycerin (Nitrostat) 0.4 Mg Tab 0.4 MG UT PRN PRN for Chest Pain, BTL Tramadol (Ultram) 50 Mg Tab 1-2 TAB PO Q4 PRN for Pain, #15 TAB (This prescription has been renewed) Trazodone Hcl (Trazodone) 50 Mg Tab 25 MG PO HS PRN for Sleep Discontinued Medications: Amlodipine Besylate (Norvasc) 2.5 Mg Tab 2.5 MG PO QAM Bumetanide (Bumex) 1 Mg Tab 1.5 MG PO QAM, TAB Olmesartan Medoxomil (Benicar) 20 Mg Tab 20 MG PO QAM, TAB Spironolactone (Aldactone) 25 Mg Tab 25 MG PO QAM, TAB Referrals At Discharge Follow up Referrals: Piano Mover Referral - Within 1-2 Weeks with Rehan Novak DO Bacteriologist Soil Referral - Within 2 Weeks with Martin Martini MD Physician Referral - Within 1 Week with Isauro Lange M.D. Discharge Exam Patient missed 2 feeling winded with exertion. She was up to the restroom. This causes her shortness of breath. It improves with rest. She denies any chest pain or pressure. No recent heart palpitations. Tolerating her diet. Occasional loose stools. Denies abdominal pain. Review of Systems: Constitutional: No fever Respiratory: + cough (nonproductive) Cardiovascular: No chest pain Abdomen: No nausea Physical Exam: General Appearance: no apparent distress Neck: no JVD Respiratory/Chest: + pertinent finding (slight decreased breath sounds at the right base. No significant wheezing. No crackles.) Cardiovascular: regular rate, rhythm, + systolic murmur Abdomen / GI: normal bowel sounds, non tender, soft, + pertinent finding ( hernia reproducible) Extremities: no calf tenderness, no pedal edema Neurologic/Psychiatric: no motor/sensory deficits, oriented x 3 Skin: warm/dry (Anca Blackwood PA-C) Hospital Course 80 yo F admitted for acute renal failure Partial SBO, PARAS. developed Gram negative sepsis from urinary source poa, afib rvr and cardiogenic shock treated with emergent cardioversion Gram negative sepsis, e coli in blood and urine, treated with IV Zosyn, proves to be E coli can streamline antiboitics to Rocephin. D/C out on Omnicef for 2 weeks Afib now nsr s/p cardioversion-Cardiology consult. Amiodarone,conversion to po , started on coreg 3.[address] of home metoprolol No anti coag due to hx of GI bleed. Partial SBO: ng insterted and removed, having bowel movement, ng output was dark and concerns for gib, ppi gtt, did drop hgb by 2 grams gastroenterology will decide as hgb is followed. Tolerating oral diet. Chronic systolic HF/CAD with h/o IQRA:ECHO shows good EF and moderate MR, mild . Euvolemic. Holding home Bumex and spironolactone. Fluid restrict 1500 mL. Daily weights PARAS - Improved and renal function is back to baseline. - Enlarging AAA: she says she had a repair at [facility] years ago- now on CT the AAA is > 6cm in diameter: - Vascular surgery consult appreciated., No intervention at this time, repeat U/ S 07/04 no enlargement or dissection noted. F/U with vascular as scheduled in October subacute right rib fractures no pain at this time Diarrhea:- C.diff negative- Dyslipidemia: Atorvastatin held secondary to elevate CPK. Resume upon d/c DVT prophylaxis: Heparin renal dose adjustment Code Status: LEVEL V, DNR Dispo: Rehab at [facility] Total Time Spent: Greater than 30 minutes This includes examination of the patient, discharge planning, medication reconciliation, and communication with other providers. (Anca Blackwood PA-C) Discharge Instructions Please refer to the electronic Patient Visit Report (Discharge Instructions) for additional information. (Anca Blackwood PA-C) Follow-Up PCP 1 week Cardiology 2 weeks GI 2 weeks Vascular surgeon in [facility] as scheduled (Anca Blackwood PA-C) Additional Copies To Isauro Lange M.D.; Rehan Novak, DO; Martin Martini MD Reviewed: Pt Seen/Exam by Me (Vero Bynum MD) History Physician Hand Ironer Supervision Note: I interviewed and examined the patient. Discussed with NAPOLEON Blackwood and agree with findings and plan as documented in the note. Any exceptions or clarifications are listed here: Pt doing very well on day of discharge, no complaints. Remained in NSR on telemetry. VSS NAD, sitting in chair and appears comfortable RRR no mgr nl S1S2 CTAB no wcr, breating unlabored Abd soft NT ND, +BS, ventral hernia easily reducible Ext no edema Skin no rashes 80 yo female here with complicated acute hospital course secondary to SBO, GNR septicemia and UTI, with rapid atrial fibrillation and cardiogenic shock requiring emergent DCCV along with acute kidney injury--> all now resolved. -finish out total 14 days abx for bacteremia -no AC for A-fib due to possible GI bleeding plus could be lone A-fib in setting of acute illness--f/u with Cardiology as outpt -continue Coreg -BPs difficult to assess due to peripheral arterial disease -f/u as scheduled with Vascular SUrgery for TAA -remain on PPI bid for suspected UGI bleed at least for 2-3 weeks Documented By: Vero Bynum (Vero Bynum MD)
[2016-07-09 15:26] VITALS: O2SAT 94
[2016-07-10] MEDS ORDERED: CRD200 PO (05:10)
--- NOTE | 2016-07-11 18:04 | EDITING REQUIRED CODING QUERY ---
PRESENT ON ADMISSION QUERY To promote full compliance with coding requirements relating to pateint care, physician participation is requested in all cases of medical records coder uncertainty. Please assist us with the question(s) below: Please place an X within the parenthesis (x). The following diagnosis(es) listed in this patient's medical record require physician assistance to determine if they were present on admission (POA) or not. Please advise for each diagnosis whether it was present on admission, not present on admission, or if it was clinically undetermined. 1.SEPSIS e coli urinary source poa ( xxx) Present On Admission ( ) Not Present On Admission ( ) Clinically Undetermined 2.(Substitute Teacher insert Diagnosis and where it was documented in the record) ( ) Present On Admission ( ) Not Present On Admission ( ) Clinically Undetermined 3.(Substitute Teacher insert Diagnosis and where it was documented in the record) ( ) Present On Admission ( ) Not Present On Admission ( ) Clinically Undetermined 4.(Substitute Teacher insert Diagnosis and where it was documented in the record) ( ) Present On Admission ( ) Not Present On Admission ( ) Clinically Undetermined 5.(Substitute Teacher insert Diagnosis and where it was documented in the record) ( ) Present On Admission ( ) Not Present On Admission ( ) Clinically Undetermined Thank you Ann Sinha *Definition of the present on admission (POA)-Present on admission is defined as present at the time the order for inpatient admission occurs. Conditions that develop during an outpatient encounter prior to a written order for inpatient admission (including emergency department, observation, or outpatient surgery) are considered present on admission.
--- NOTE | 2016-07-30 12:35 | Surgery Consultation ---
Consultation Date of Consultation: July 02, 2016. Attending Physician: Vickey Horne M.D. History of Present Illness 80 yo female with extensive cardiac history detailed below presents today c/o feeling ill for several days. She reports that she has had diarrhea, averaging 4 loose stools every day for the past few days. No bloody diarrhea that she has seen. She also has been vomiting and has been unable to keep anything down for the past few days. She has not taken any medications for 2 days. She denies severe abdominal pain and she recalls that when she had SBO in 2016 she had similar symptoms. She c/o profound fatigue and weakness and chills. No documented fevers. She has not made any urine yet today in 8 hours. She denies chest pain and shortness of breath. Nothing has improved her symptoms at home. In the ED she was found to be hypotensive initially with BP in the 60- 70's systolic. The patient says that she has subclavian stenosis that always makes her BP lower in her extremities. CXR and CT head were unremarkable. Her BMP showed marked elevated in her BUN at 111 as well as Cr at 4.1, baseline 1.0. Her lactic acid was 3.6 and procalcitonin was markedly elevated. She was started on broad spectrum antibiotics after cultures drawn and IV fluids initiated. We were asked to evaluated for admission. I was asked to consult NG output, pt just was moved to ICU for cardiac convert base on pt developed A-Fib. I asked pt, pt said she has no abdominal pain, NG- 900ml, some bloody. no N/V, no fever,07/02/2016 Past Medical/Surgical History Medical Problems: (1) Congestive heart failure Status: Acute (2) Dehydration Status: Acute (3) Epistaxis Status: Acute (4) Hypotension Status: Acute (5) Lactic acidosis Status: Acute (6) Pulmonary edema Status: Acute (7) Sepsis Status: Acute (8) Stroke Status: Acute Family History No pertinent family history Social History Smoking Status: Never Smoker Alcohol Use: none Drug Use: none Housing Status: lives alone Occupation Status: unemployed Allergies Coded Allergies: Ramipril (Verified Allergy, Unknown, Cough, 07/20/16) Home Medications Scheduled Acetaminophen (Tylenol), 1,000 MG PO BID Amiodarone HCl (Amiodarone HCl), 200 MG PO BID Aspirin (Aspirin Ec), 81 MG PO QAM Atorvastatin (Lipitor), 80 MG PO HS Bumetanide (Bumex), 1 MG PO QAM Carvedilol (Coreg), 1 TAB PO BID Cholecalciferol (Vitamin D3), 1 CAP PO HS Clopidogrel (Plavix), 75 MG PO QAM Levothyroxine Sodium (Synthroid), 125 MCG PO QAM Pantoprazole (Pantoprazole Sodium), 40 MG PO BID Potassium Chloride (Potassium Chloride Er), 10 MEQ PO QAM Scheduled PRN Nitroglycerin (Nitrostat), 0.4 MG UT PRN PRN for Chest Pain Tramadol (Ultram), 50 MG PO Q4H PRN for Pain Trazodone Hcl (Trazodone), 25 MG PO HS PRN for Sleep Review of Systems Constitutional: No chills, No fatigue, No fever, No problem reported, No sweats , No weakness, No weight loss Eyes: No diplopia, No discharge, No eye pain, No problem reported, No redness, No worsening of vision ENT: No dental problems, No hearing loss, No nasal symptoms, No problem reported, No sore throat, No tinnitus, No trouble swallowing, No unusual epistaxis Respiratory: No cough, No dyspnea at rest, No dyspnea on exertion, No hemoptysis, No problem reported, No shortness of breath, No sputum, No wheezing Cardiovascular: No PND, No chest pain, No claudication, No edema, No orthopnea , No palpitations, No problem reported Abdomen: No GI bleeding, No constipation, No diarrhea, No nausea, No pain, No problem reported, No vomiting Neurologic: No balance problems, No memory loss, No numbness/tingling, No paralysis, No problem reported, No vertigo, No weakness Psychiatric: No anhedonism, No anxiety, No depression symptoms, No insomnia, No problem reported, No substance abuse Endocrine: No excessive thirst, No excessive urination, No fatigue, No problem reported Physical Exam General Appearance: WD/WN Head: normocephalic Eyes: normal inspection Neck: supple, no JVD Respiratory/Chest: chest non-tender, lungs clear Cardiovascular: regular rate, rhythm, no edema, no gallop, no JVD Abdomen/GI: normal bowel sounds, non tender, soft, no organomegaly Extremities/Musculoskelatal: normal inspection, no calf tenderness, normal capillary refill Neurologic/Psych: alert, normal mood/affect Laboratory Results KUB-IMPRESSION: 1. Nasogastric tube within the stomach 2. No evidence of pathologic bowel dilatation CT scan abd + pelvis-IMPRESSION: 1. Above findings are consistent with a small bowel obstruction, likely a partial small bowel obstruction. A transition point is not clearly identified at this time. However, the distal ileal loops are slightly decompressed and could be mildly thickened in the setting of an ileitis. 2. 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 3. No change in the ventral hernias. These do not appear to result in the bowel obstruction. 4. Nonspecific ground glass densities within the right lung base which could be due to scarring or a pneumonitis. 5. Acute to subacute right anterior rib fractures. Assessment & Plan IMP, possible partial SBO base pt has no abdominal pain, no signs GI obstruction now, conservative treatment, NG to low interment suction, H2 anne, once pt is stable, consult GI to R/O GI bleeding, will F/U
[2016-10-07] MEDS ORDERED: AMLO2.5T PO (14:12)
[2016-10-07] MEDS ORDERED: BUME2TAB3 PO (14:12)
[2016-10-07] MEDS ORDERED: OLME20TA26 PO (14:12)
[2016-10-07] MEDS ORDERED: SPIR25TA89 PO (14:12)
[2016-10-07] MEDS ORDERED: CYAN10005 PO (14:12)
[2017-01-21] MEDS ORDERED: GABA-1218 PO (10:20)
== END 2016-07-09 15:33 | DRG 871 ==
LOC: ENRESERVTM → ENRESERVDT → EDBD 13:54 → C.EDB 13:56 → C.2E 16:21 → C.MSICU 07-04 09:31 → C.2E 07-05 19:05
PROVIDERS: ADMIT Internal Medicine; ATTEND Internal Medicine
PROC: 5A2204Z Restoration of Cardiac Rhythm, Single (ICD-10-PCS; principal; 2016-07-04)
DX: A41.51 Sepsis due to Escherichia coli [E. coli] (principal); J96.02 Acute respiratory failure with hypercapnia; G93.41 Metabolic encephalopathy; R57.0 Cardiogenic shock; N17.9 Acute kidney failure, unspecified; I50.22 Chronic systolic (congestive) heart failure; E87.2 Acidosis; K56.60 Unspecified intestinal obstruction; N39.0 Urinary tract infection, site not specified; S22.41XA Multiple fractures of ribs, right side, initial encounter for closed fracture; E86.0 Dehydration; I25.10 Atherosclerotic heart disease of native coronary artery without angina pectoris; Z95.5 Presence of coronary angioplasty implant and graft; Z86.73 Personal history of transient ischemic attack (TIA), and cerebral infarction without residual deficits; I11.0 Hypertensive heart disease with heart failure; I27.2 Other secondary pulmonary hypertension; E78.5 Hyperlipidemia, unspecified; H91.90 Unspecified hearing loss, unspecified ear; E05.00 Thyrotoxicosis with diffuse goiter without thyrotoxic crisis or storm; M48.00 Spinal stenosis, site unspecified; Z80.1 Family history of malignant neoplasm of trachea, bronchus and lung; Z82.49 Family history of ischemic heart disease and other diseases of the circulatory system; E78.00 Pure hypercholesterolemia, unspecified; Z82.3 Family history of stroke; Z88.8 Allergy status to other drugs, medicaments and biological substances; Z79.899 Other long term (current) drug therapy; Z79.82 Long term (current) use of aspirin; Z79.02 Long term (current) use of antithrombotics/antiplatelets; R19.7 Diarrhea, unspecified; R29.810 Facial weakness; Z66 Do not resuscitate; B96.20 Unspecified Escherichia coli [E. coli] as the cause of diseases classified elsewhere; E86.1 Hypovolemia; I71.6 Thoracoabdominal aortic aneurysm, without rupture; I48.0 Paroxysmal atrial fibrillation; I25.5 Ischemic cardiomyopathy; E03.9 Hypothyroidism, unspecified; Z87.11 Personal history of peptic ulcer disease; E87.6 Hypokalemia; I08.0 Rheumatic disorders of both mitral and aortic valves; X58.XXXA Exposure to other specified factors, initial encounter

== ENCOUNTER 2016-07-20 03:56 | Emergency (ER) | payer OTHER, MEDICARE ==
[~2016-07-20] VITALS: Ht 157.5 cm; Wt 70.1 kg
[~2016-07-20 03:56] MED LIST changes: +ACET-1256 PO; -ACET500C14 PO; -AMLO2.5T PO; -ASPCH81 PO; +ASPI81TA28 PO; -BUME1TAB PO; +CARV3.122 PO; +CRD200 PO; -CRG3125 PO; -OLME1TAB11 PO; +PRT40 PO; -SPIR25TA PO
[2016-07-20 04:06] VITALS: TEMP 36.6; Ht 157.5 cm; Wt 70.1 kg
--- NOTE | 2016-07-20 04:20 | EMERGENCY ROOM VISIT NOTE ---
History Report prepared by Estrellita: Nael Trinidad Under the Supervision of: Dr. Emily Mcwilliams D.O. 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 The patient notes that the bleeding has slowed down since onset and is now at a slow drip. She initially did feel like there was blood dripping into the back of her throat. The patient denies any injury to the nose recently. Epistaxis is uncommon for her. She is on Plavix and Aspirin. The bleeding started after she got out of bed to use the restroom. The patient also complains of bilateral feet swelling. She has history of congestive heart failure and is on Bumex, but notes that the swelling was never to this extent. She intermittently has increased shortness of breath but her breathing is currently at baseline. She wears oxygen at night, and notes that humidification was recently taken away. She was not wearing oxygen at the onset of the bleed. 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 A total of 10 systems reviewed and were otherwise negative. Past Medical & Surgical Medical Problems: (1) Acute exacerbation of CHF (congestive heart failure) (2) CHF (congestive heart failure) (3) Hypoxia (4) TIA (transient ischemic attack) Family History No pertinent family history Social History Smoking Status: Former Smoker Drug Use: none Housing Status: lives alone Occupation Status: unemployed Current/Historical Medications Scheduled Acetaminophen (Tylenol), 1,000 MG PO BID Amiodarone HCl (Amiodarone HCl), 200 MG PO BID Aspirin (Aspirin Ec), 81 MG PO QAM Atorvastatin (Lipitor), 80 MG PO HS Bumetanide (Bumex), 1 MG PO QAM Carvedilol (Coreg), 1 TAB PO BID Cholecalciferol (Vitamin D3), 1 CAP PO HS Clopidogrel (Plavix), 75 MG PO QAM Levothyroxine Sodium (Synthroid), 125 MCG PO QAM Pantoprazole (Pantoprazole Sodium), 40 MG PO BID Potassium Chloride (Potassium Chloride Er), 10 MEQ PO QAM Scheduled PRN Nitroglycerin (Nitrostat), 0.4 MG UT PRN PRN for Chest Pain Tramadol (Ultram), 50 MG PO Q4H PRN for Pain Trazodone Hcl (Trazodone), 25 MG PO HS PRN for Sleep Allergies Coded Allergies: Ramipril (Verified Allergy, Unknown, Cough, 07/20/16) Physical Exam Vital Signs Date Time Temp Pulse Resp B/P Pulse Ox O2 Delivery O2 Flow Rate FiO2 07/20/16 06:15 69 16 83/59 94 Room Air 07/20/16 04:06 36.6 73 18 88/61 91 Room Air Physical Exam HEENT: Head - normocephalic and atraumatic Pupils are equal, round, and reactive to light. Extraocular eye muscles are intact, and sclera are anicteric. Nose - small amount of blood within the right nares. Mouth - moist buccal mucosa. Oropharynx is nonerythematous and there is no tonsillar exudate or edema noted. Clot within the right posterior oropharynx. Neck: Supple; no JVD, nuchal rigidity, cervical lymphadenopathy. Heart: Regular rate and rhythm. There is a normal S1 and S2 with no murmurs, clicks, or gallops appreciated. Lungs: Clear to auscultation bilaterally with no wheezes, rales, or rhonchi. Abdomen: Soft, completely nontender, nondistended, with good bowel sounds. There are no palpable pulsatile masses or hepatosplenomegaly. There is no guarding, rigidity, or rebound noted. Extremities: There is 2+ lower extremity edema bilaterally. No evidence of cyanosis or clubbing. There are easily palpable peripheral pulses. Skin: warm and dry with good turgor and no rashes. Medical Decision & Procedures ED Course 0410: Past medical records reviewed. The patient was evaluated in room B9. A complete history and physical exam was performed. The nose was no longer bleeding at this time. 0528: The patient is doing well. She still has a small amount of oozing. The clot is no longer present in her oropharynx. She will be discharged. Medical Decision The patient is an 80 year old female who presents to the ED with a nosebleed. The patient admits that she typically wears O2 at night and it is normally humidified. As of recently, it has no longer been humidified. However, the patient did not have any O2 on tonight when the nosebleed started. The nosebleed stopped on it's own here in the emergency department. The patient was encouraged to go back to humidified oxygen. She was instructed not to blow her nose for the next 48 hours. She was given very specific instructions to hold pressure if the bleeding started again. Impression Primary Impression: Epistaxis Scribe Attestation The scribe's documentation has been prepared under my direction and personally reviewed by me in its entirety. I confirm that the note above accurately reflects all work, treatment, procedures, and medical decision making performed by me. Departure Information Dispostion Home / Self-Care Referrals Luis Maynard M.D. (PCP) Forms HOME CARE DOCUMENTATION FORM, IMPORTANT VISIT INFORMATION, WORK / SCHOOL INSTRUCTIONS Patient Instructions My [facility], Nosebleed Additional Instructions Rest with head elevated. No Aspirin today. Take plavix later today If you develop further bleeding, hold pressure for 20 minutes. Use humidified oxygen. Do not blow your nose for 48 hours
[2016-07-20] MEDS ORDERED: ASPI81TA28 PO (05:11)
[2016-07-20] MEDS ORDERED: BUME1TAB PO (05:11)
[2016-07-20] MEDS ORDERED: TRAM-10 PO (05:12)
[2016-07-20] MEDS ORDERED: POTA-74 PO (05:12)
[2016-07-20 06:15] VITALS: BP 83/59; PULSE 69; O2SAT 94
[2016-10-07] MEDS ORDERED: BUME2TAB3 PO (14:12)
[2016-10-07] MEDS ORDERED: OLME20TA26 PO (14:12)
[2016-10-07] MEDS ORDERED: AMLO2.5T PO (14:12)
[2016-10-07] MEDS ORDERED: SPIR25TA89 PO (14:12)
[2016-10-07] MEDS ORDERED: CYAN10005 PO (14:12)
[2017-01-21] MEDS ORDERED: GABA-1218 PO (10:20)
== END 2016-07-20 06:19 | disposition home or self-care (01) ==
LOC: EDBD 03:56 → C.EDB 03:57
DX: R04.0 Epistaxis (principal); I50.9 Heart failure, unspecified; R09.02 Hypoxemia; G45.9 Transient cerebral ischemic attack, unspecified; Z87.891 Personal history of nicotine dependence; Z79.82 Long term (current) use of aspirin

== ENCOUNTER → 2016-10-13 | Outpatient (CLI) | payer OTHER, MEDICARE ==
[~2016-10-13] MED LIST changes: +AMLO2.5T PO; +BUME1TAB PO; +BUME2TAB3 PO; -CRD200 PO; +CYAN10005 PO; +OLME20TA26 PO; -PRT40 PO; +SPIR25TA89 PO
[2016-10-13 13:20] LABS: BLOOD UREA NITROGEN 32 mg/dl (7-18); BUN/CREATININE RATIO 22.7 (10-20); CALCIUM 9.5 mg/dl (8.5-10.1); CARBON DIOXIDE 34 mmol/L (21-32); CHLORIDE 98 mmol/L (98-107); GLUCOSE 99 mg/dl (70-99); POTASSIUM 3.5 mmol/L (3.5-5.1); SODIUM 137 mmol/L (136-145)
[2016-10-13 13:24] LABS: CHOLESTEROL/HDL RATIO 2.5
== END | disposition home or self-care (01) ==
LOC: C.LABOAKS 10:25
PROVIDERS: ATTEND Family Medicine
DX: I71.4 Abdominal aortic aneurysm, without rupture (principal); I35.0 Nonrheumatic aortic (valve) stenosis

== ENCOUNTER → 2016-10-29 | Day surgery (SDC) | payer OTHER, MEDICARE ==
[2016-10-07 14:15] VITALS: Ht 157.5 cm; Wt 64.5 kg
[~2016-10-29] VITALS: Ht 157.5 cm; Wt 64.5 kg
[~2016-10-29] MED LIST changes: +BUPIVACAINE 0.25% 2.5MG/ML PF 10 ML VIAL ONE; +IOPAMIDOL INJ 61% 15 ML VIAL ONE; +LIDOCAINE HCL 1% MPF 5 ML VIAL ONE
--- NOTE | 2016-10-29 14:20 | Discharge Instructions ---
Discharge Instructions Date of Service Oct 29, 2016. Visit Reason for Visit: Sacroiliitis Discharge Discharge Diagnosis / Problem: low back pain Discharge Goals Goal(s): Decrease discomfort, Improve function Activity Recommendations Activity Limitations: resume your previous activity Anesthesia . Post Anesthesia Instructions: If you have had General Anesthesia or IV Sedation: * Do not drive today. * Resume driving when surgeon permits. * Do not make important decisions or sign legal documents today. * Call surgeon for: 1. Temperature elevations greater than 101 degrees F. 2. Uncontrollable pain. 3. Excessive bleeding. 4. Persistent nausea and vomiting. 5. Medication intolerance (nausea, vomiting or rash). * For nausea and vomiting use only clear liquids such as: tea, soda, bouillon until nausea subsides, then gradually increase diet as tolerated. * If you have any concerns or questions, call your surgeon's office. If physician is unavailable and it is an emergency, call 911 or go to the nearest emergency room. . Diet Recommendations Recommended Home Diet: resume previous diet Procedures Procedures Performed: LEFT SACROILIAC JOINT INJECTION Pending Studies Studies pending at discharge: no Medical Emergencies . Who to Call and When: Medical Emergencies: If at any time you feel your situation is an emergency, please call 911 immediately. . Non-Emergent Contact Non-Emergency issues call your: Specialist . . "Provider Documentation" section prepared by Yoshi Wesley. .
[2016-10-29 14:30] VITALS: BP 98/50; PULSE 70; TEMP 36.6; O2SAT 95
--- NOTE | 2016-10-29 14:30 | OPERATIVE REPORT ---
DATE OF OPERATION: 10/29/2016 PREOPERATIVE DIAGNOSIS: Left sacroiliitis. POSTOPERATIVE DIAGNOSIS: Same. PROCEDURE: Left sacroiliac joint injection under fluoroscopic guidance. SURGEON: Dr. Yoshi Wesley. INDICATIONS: The patient is an 81-year-old white female who has received sacroiliac joint injections in the past, most recently in April 2016. She had great relief for about 5 weeks. Over the past month, the pain has been increasing and it is uncomfortable for her. She presents today for an SI joint injection to provide her with relief. PHYSICAL EXAMINATION: Pleasant female seated comfortably. She has point tender to palpation over the left SI joint. It is increased with extension. No problems with flexion. She has normal motor and sensory examination of her lower extremities. CONSENT: Verbal and written consent was obtained from the patient. Risks and benefits were reviewed. Risks include but are not limited to abscess and allergic reaction. The patient wishes to proceed. PROCEDURE: The patient was taken back to the special procedures room of the [facility] where she was maintained in a prone position. Backside was cleansed with Betadine x3 and a dry sterile dressing was applied. Fluoroscope was used to identify the left SI joint and the overlying skin was anesthetized with 4 mL of lidocaine 1% with a 25 gauge 1.5-inch needle. A 25 gauge 3.5 inch spinal needle was then directed into the joint. She then underwent an injection of Isovue 300 contrast 0.25 mL to demonstrate the needle intraarticularly placed within the joint which confirmed it. She then underwent injection after negative aspiration of 40 mg of Depo-Medrol, 1.5 mL of bupivacaine 0.25%. Injection was well tolerated. DISPOSITION: 1. The patient is taken out into the discharge recovery area where she will be discharged home once discharge criteria have been met. 2. Follow up in the [facility] office in 2-4 weeks. I attest to the content of the Intraoperative Record and any orders documented therein. Any exception s are noted below.
== END | disposition home or self-care (01) ==
LOC: X.SURG 12:53
PROVIDERS: ATTEND Physical Medicine & Rehabilitation
DX: M46.1 Sacroiliitis, not elsewhere classified (principal); I25.10 Atherosclerotic heart disease of native coronary artery without angina pectoris; I71.4 Abdominal aortic aneurysm, without rupture; J44.9 Chronic obstructive pulmonary disease, unspecified; I10 Essential (primary) hypertension; E55.9 Vitamin D deficiency, unspecified; Z86.73 Personal history of transient ischemic attack (TIA), and cerebral infarction without residual deficits; Z86.010 Personal history of colon polyps; Z87.891 Personal history of nicotine dependence; Z79.82 Long term (current) use of aspirin; Z82.49 Family history of ischemic heart disease and other diseases of the circulatory system; Z82.3 Family history of stroke; Z83.3 Family history of diabetes mellitus; Z80.1 Family history of malignant neoplasm of trachea, bronchus and lung

== ENCOUNTER → 2017-03-17 | Day surgery (SDC) | payer OTHER, MEDICARE ==
[2017-02-16 12:51] VITALS: Ht 157.5 cm; Wt 64.5 kg
[~2017-03-17] VITALS: Ht 157.5 cm; Wt 64.5 kg
[~2017-03-17] MED LIST changes: +AFRINWC NAE; +AMIO200T4 PO; +BUPIVACAINE 0.25% 30 ML VIAL INJ ONE; +GABA-1218 PO; +LEVO150T9 PO; +LIDOCAINE HCL 1% MPF 5 ML VIAL INJ ONE; +POTA1TAB97 PO; +SODIUM CHLORIDE 0.9% INJ 10 ML VIAL ONE
[2017-03-17 13:36] VITALS: TEMP 36.7
--- NOTE | 2017-03-17 13:41 | Discharge Instructions ---
Discharge Instructions Date of Service Mar 17, 2017. Visit Reason for Visit: Lumbar Spondylosis Discharge Discharge Diagnosis / Problem: left leg pain Discharge Goals Goal(s): Decrease discomfort, Improve function Medications Stopped Medications Name(s): Asa 81mg-2 tabs daily, and plavix 75mg daily, last doses 03/12/17 Activity Recommendations Activity Limitations: resume your previous activity Anesthesia . Post Anesthesia Instructions: If you have had General Anesthesia or IV Sedation: * Do not drive today. * Resume driving when surgeon permits. * Do not make important decisions or sign legal documents today. * Call surgeon for: 1. Temperature elevations greater than 101 degrees F. 2. Uncontrollable pain. 3. Excessive bleeding. 4. Persistent nausea and vomiting. 5. Medication intolerance (nausea, vomiting or rash). * For nausea and vomiting use only clear liquids such as: tea, soda, bouillon until nausea subsides, then gradually increase diet as tolerated. * If you have any concerns or questions, call your surgeon's office. If physician is unavailable and it is an emergency, call 911 or go to the nearest emergency room. . Diet Recommendations Recommended Home Diet: resume previous diet Procedures Procedures Performed: Lumbar Epidural Steroid Injection, Transforaminal Approach Pending Studies Studies pending at discharge: no Medical Emergencies . Who to Call and When: Medical Emergencies: If at any time you feel your situation is an emergency, please call 911 immediately. . Non-Emergent Contact Non-Emergency issues call your: Specialist . . "Provider Documentation" section prepared by Yoshi Wesley. .
[2017-03-17 13:59] VITALS: BP 110/64; PULSE 75
--- NOTE | 2017-03-17 14:12 | OPERATIVE REPORT ---
DATE OF OPERATION: 03/17/2017 PREOPERATIVE DIAGNOSIS: Lumbar stenosis with a left L4 radiculopathy. POSTOPERATIVE DIAGNOSIS: Same. PROCEDURE: Failed attempt at an intralaminar epidural steroid injection. A successful left L4-L5 transforaminal epidural steroid injection. INDICATIONS: The patient is an 81-year-old white female who has had difficulty with a left L4 radiculopathy. She has severe stenosis of the lower lumbar spine and presents today for an epidural injection to provide her with relief of the radicular pain that is not resolving with conservative measures. PHYSICAL EXAMINATION: Pleasant female seated comfortably. She has a scoliotic curvature to her back. She has some sensitivity to the sciatic notch on the left side, intact sensation, negative seated straight leg raises. CONSENT: Verbal and written consent was obtained from patient. Risks and benefits were reviewed. Risks include but are not limited to epidural abscess, epidural hematoma, allergic reaction, dural puncture. The patient wishes to proceed. DESCRIPTION OF PROCEDURE: The patient was taken back to the special procedures room of the [facility] where she was maintained in prone position. Backside was cleansed with Betadine x3 and a dry sterile dressing was applied. Fluoroscope was used to identify the L4-L5 interlaminar space which was very very narrowed secondary to severe underlying osteoarthritic changes of the spine. After anesthetization of the overlying skin with 4 mL of lidocaine 1%, 22-gauge 3.5 inch Tuohy needle was then directed down towards the intralaminar space; however, it met bony resistance where it was assumed to be open in the intralaminar region. Decision was made to then enter via a transforaminal approach. An additional 4 mL of anesthetic was given in an oblique view overlying the inferior pedicle. A 22 gauge 5 cm spinal needle was then directed, it was placed in until it had some resistance. The patient had some mild transient discomfort in the thigh, was retracted a few millimeters and injected with 0.5 mL of Isovue 300 contrast which showed outline of the nerve root. She then underwent injection after negative aspiration of 40 mg of Depo-Medrol and 1 mL of lidocaine 1%. Injection was well tolerated. DISPOSITION: 1. The patient is taken out into the discharge recovery area where she will be discharged home once discharge criteria have been met. 2. Follow up in the [facility] office in 2-4 weeks. I attest to the content of the Intraoperative Record and any orders documented therein. Any exception s are noted below.
== END | disposition home or self-care (01) ==
LOC: X.SURG 11:48
PROVIDERS: ATTEND Physical Medicine & Rehabilitation
DX: M48.061 Spinal stenosis, lumbar region without neurogenic claudication (principal); M54.16 Radiculopathy, lumbar region; Z79.82 Long term (current) use of aspirin

== ENCOUNTER 2017-03-21 00:12 | Inpatient (IN) | payer OTHER, MEDICARE ==
[2017-03-21] VITALS (14 sets, daily range): BP systolic 76–96; BP diastolic 52–66; PULSE 58–103; TEMP 36.4–36.9; O2SAT 92–99; Ht 157.5 cm; Wt 68.4 kg
[~2017-03-21] VITALS: Ht 157.5 cm; Wt 68.4 kg
[~2017-03-21 00:12] MED LIST changes: -AFRINWC NAE; -AMIO200T4 PO; -BUPIVACAINE 0.25% 2.5MG/ML PF 10 ML VIAL ONE; -BUPIVACAINE 0.25% 30 ML VIAL INJ ONE; -IOPAMIDOL INJ 61% 15 ML VIAL ONE; -LEVO150T9 PO; -LIDOCAINE HCL 1% MPF 5 ML VIAL INJ ONE; -LIDOCAINE HCL 1% MPF 5 ML VIAL ONE; -POTA1TAB97 PO; -SODIUM CHLORIDE 0.9% INJ 10 ML VIAL ONE
--- NOTE | 2017-03-21 00:40 | EMERGENCY ROOM VISIT NOTE ---
History Report prepared by Estrellita: Jus Jack Under the Supervision of: Dr. Selene Bradford D.O. First contact with patient: 00:16 Stated Complaint: SHORTNESS OF BREATH History of Present Illness The patient is an 81 year old female who presents to the Emergency Room due to worsening shortness of breath that began at 2300 this evening, 80 minutes prior to arrival. The patient has a history of congestive heart failure and notes that this episode feels like a CHF exacerbation as she has experienced in the past. She notes become coming more short of breath upon exertion. The patient also complains of worsening edema in her ankles, that is migrating up her lower extremities. She is on Lasix and denies missing any dosages. The patient was brought to the emergency department via EMS who administered 3 SL nitroglycerin , 125 of Solu-Medrol, 2 albuterol treatments and 1 Duoneb treatment. The patient was also placed on C-Pap en route. Upon arrival to the ED the patient was at 85-87% O2 on 4 liters of oxygen. She notes that she has been admitted to the hospital for CHF exacerbation in the past. Source of History: patient Onset: 80 minutes [employer] Position: chest (Respiratory) Quality: other (SOB) Timing: worsening Modifying Factors (Worsening): exertion, movement Note: Patient notes worsening lower extremity edema. Review of Systems See HPI for pertinent positives & negatives. A total of 10 systems reviewed and were otherwise negative. Past Medical & Surgical Medical Problems: (1) Acute exacerbation of CHF (congestive heart failure) (2) CHF (congestive heart failure) (3) Hypoxia (4) Respiratory distress (5) TIA (transient ischemic attack) Family History No pertinent family history Social History Smoking Status: Former Smoker Drug Use: none Housing Status: lives alone Occupation Status: unemployed Current/Historical Medications Scheduled Acetaminophen (Tylenol), 1,000 MG PO QAM Acetaminophen (Tylenol), 500 MG PO QPM Amiodarone Hcl (Cordarone), 200 MG PO DAILY Amlodipine Besylate (Norvasc), 2.5 MG PO QAM Aspirin (Aspirin Ec), 1 TAB PO QAM Atorvastatin (Lipitor), 80 MG PO HS Bumetanide (Bumex), 2 MG PO DAILY Carvedilol (Coreg), 3.125 MG PO BID Cholecalciferol (Vitamin D3), 2,000 UNITS PO HS Clopidogrel (Plavix), 75 MG PO QAM Cyanocobalamin (Vitamin B-12), 1,000 MCG PO QAM Gabapentin (Neurontin), 300 MG PO TID Levothyroxine Sodium (Levothyroxine Sodium), 150 MCG PO DAILY Potassium Chloride (K-Tab), 20 MEQ PO DAILY Spironolactone (Aldactone), 25 MG PO QAM Scheduled PRN Acetaminophen (Tylenol), 1,000 MG PO Q6H PRN for Pain Nitroglycerin (Nitrostat), 0.4 MG UT PRN PRN for Chest Pain Oxymetazoline Hcl (Afrin 0.05% Nasal [place]), 2 SPRAYS DONA Q4H PRN for NOSE BLEEDS Tramadol (Ultram), 50-100 MG PO Q6H PRN for Pain Trazodone Hcl (Trazodone), 25 MG PO HS PRN for Sleep Allergies Coded Allergies: Ramipril (Verified Allergy, Unknown, Cough, 03/17/17) Physical Exam Vital Signs Date Time Temp Pulse Resp B/P (MAP) Pulse Ox O2 Delivery O2 Flow Rate FiO2 03/21/17 03:45 82 81/64 97 Nasal Cannula 4.0 03/21/17 03:30 82 17 86/74 98 4.0 03/21/17 03:15 79 20 94/74 99 Nasal Cannula 4.0 03/21/17 03:00 88 22 85/66 96 Nasal Cannula 4.0 03/21/17 02:45 85 16 91/68 97 Nasal Cannula 4.0 03/21/17 02:30 81 15 90/70 97 Nasal Cannula 4.0 03/21/17 02:17 81/66 03/21/17 02:15 80 22 81/63 99 BiPAP 50 03/21/17 02:00 79 26 92/71 98 BiPAP 50 03/21/17 01:45 82 14 96/75 98 BiPAP 50 03/21/17 01:30 79 14 93/72 100 BiPAP 50 03/21/17 01:17 80 24 77/59 98 BiPAP 50 03/21/17 01:08 86 22 87/55 95 BiPAP 03/21/17 01:00 84 20 79/62 95 BiPAP 03/21/17 00:28 94 03/21/17 00:20 95 94 03/21/17 00:17 84 Nasal Cannula 4.0 03/21/17 00:17 37.0 92 18 109/73 95 CPAP 03/21/17 00:17 95 CPAP Physical Exam GENERAL: alert, well appearing, well nourished, no distress, non-toxic EYE EXAM: normal conjunctiva, PERRL and EOM's grossly intact OROPHARYNX: no exudate, no erythema, lips, buccal mucosa, and tongue normal and mucous membranes are moist NECK: supple, no nuchal rigidity, no adenopathy, non-tender LUNGS: Diminished breath sounds throughout. Fine bibasilar rales. Mild dyspnea with prolonged conversation. Normal chest wall mechanics HEART: no murmurs, S1 normal and S2 normal ABDOMEN: abdomen soft with a central abdominal wall hernia; easily reducible and non-tender, normo-active bowel sounds, no rebound or guarding. BACK: Back is symmetrical on inspection and there is no deformity, no midline tenderness, no CVA tenderness. SKIN: no rashes and no bruising UPPER EXTREMITIES: upper extremities are grossly normal. LOWER EXTREMITIES: 2+ edema bilaterally up to the level of the knee. NEURO EXAM: Normal sensorium. Medical Decision & Procedures ER Provider Diagnostic Interpretation: Radiology results have been interpreted and reviewed by me. CHEST X-RAY: Study of the chest was reviewed and revealed poor patient positions for film. Possible early left sided pneumonia Laboratory Results 03/21/17 00:45 Red Blood Count 3.86, Mean Corpuscular Volume 103.9, Mean Corpuscular Hemoglobin 33.2, Mean Corpuscular Hemoglobin Concent 31.9, Mean Platelet Volume 10.5, Neutrophils (%) (Auto) 76.6, Lymphocytes (%) (Auto) 16.6, Monocytes (%) ( Auto) 5.2, Eosinophils (%) (Auto) 1.1, Basophils (%) (Auto) 0.2, Neutrophils # ( Auto) 6.99, Lymphocytes # (Auto) 1.51, Monocytes # (Auto) 0.47, Eosinophils # ( Auto) 0.10, Basophils # (Auto) 0.02 03/21/17 00:45 Test 03/21/17 00:45 03/21/17 00:55 White Blood Count 9.12 K/uL (4.8-10.8) Red Blood Count 3.86 M/uL (4.2-5.4) Hemoglobin 12.8 g/dL (12.0-16.0) Hematocrit 40.1 % (37-47) Mean Corpuscular Volume 103.9 fL (80-100) Mean Corpuscular Hemoglobin 33.2 pg (25-34) Mean Corpuscular Hemoglobin Concent 31.9 g/dl (32-36) Platelet Count 285 K/uL (130-400) Mean Platelet Volume 10.5 fL (7.4-10.4) Neutrophils (%) (Auto) 76.6 % Lymphocytes (%) (Auto) 16.6 % Monocytes (%) (Auto) 5.2 % Eosinophils (%) (Auto) 1.1 % Basophils (%) (Auto) 0.2 % Neutrophils # (Auto) 6.99 K/uL (1.4-6.5) Lymphocytes # (Auto) 1.51 K/uL (1.2-3.4) Monocytes # (Auto) 0.47 K/uL (0.11-0.59) Eosinophils # (Auto) 0.10 K/uL (0-0.5) Basophils # (Auto) 0.02 K/uL (0-0.2) RDW Standard Deviation 53.3 fL (36.4-46.3) RDW Coefficient of Variation 14.1 % (11.5-14.5) Immature Granulocyte % (Auto) 0.3 % Immature Granulocyte # (Auto) 0.03 K/uL (0.00-0.02) Prothrombin Time 10.2 SECONDS (9.0-12.0) Prothromb Time International Ratio 1.0 (0.9-1.1) Anion Gap 6.0 mmol/L (3-11) Est Creatinine Clear Calc Drug Dose 30.8 ml/min Estimated GFR () 45.2 Estimated GFR (Non- 39.0 BUN/Creatinine Ratio 17.2 (10-20) Calcium Level 8.2 mg/dl (8.5-10.1) Magnesium Level 2.1 mg/dl (1.8-2.4) Total Bilirubin 0.4 mg/dl (0.2-1) Aspartate Amino Transf (AST/SGOT) 18 U/L (15-37) Alanine Aminotransferase (ALT/SGPT) 17 U/L (12-78) Alkaline Phosphatase 109 U/L (45-117) Pro-B-Type Natriuretic Peptide 72352 pg/ml (0-1800) Total Protein 6.4 gm/dl (6.4-8.2) Albumin 2.9 gm/dl (3.4-5.0) Globulin 3.5 gm/dl (2.5-4.0) Albumin/Globulin Ratio 0.8 (0.9-2) Influenza Type A Antigen Neg for Influ A (NEG) Influenza Type B Antigen Neg for Influ B (NEG) Laboratory results per my review. Medications Administered Medications (Trade) Dose Ordered Sig/Nicko Route Start Time Stop Time Status Last Admin Dose Admin Levofloxacin (Levaquin / D5W) 750 mg NOW STAT IV 03/21/17 01:11 03/21/17 01:12 DC 03/21/17 01:24 750 MG Sodium Chloride 250 ml @ 999 mls/hr Q16M STAT IV 03/21/17 01:19 03/21/17 01:34 DC 03/21/17 01:23 999 MLS/HR ECG Indication: SOB/dyspnea Rate (beats per minute): 90 Rhythm: normal sinus Findings: PVC, no acute ischemic change, other (Normal [place]) ED Course 0020: The patient was evaluated in room A2. A complete history and physical exam was performed. 0111: Ordered Levofloxacin 750 mg IV. 0113: I reevaluated the patient at this time. She feels good. Her pressures are low on the screen. 0119: Ordered Sodium Chloride 250 mL @ 999 mL/hr IV. 0204: I checked on the patient at this time. Her blood pressure is better after 250 ml bolus. She is on Bi-Pap and sleeping. 0207: Ordered Furosemide 40 mg IV. Will try to wean off bipap to help with BP. 0315: I discussed the case with Dr. Rubén [facility] He will evaluate the patient for further treatment. Medical Decision Differential diagnosis: Etiologies such as infections, reactive airway disease, pneumonia, pneumothorax , COPD, CHF, cardiac ischemia, pulmonary embolism, musculoskeletal, gastrointestinal, as well as others were entertained. Pt with clinical hx suggestive of CHF given weight gain, increased LE edema, and increased SOB. Pt with hx of COPD also and questionable early infiltrate on xray. Given hx and symptoms, covered for possible COPD exacerbation/early pneumonia. Already received solumedrol and nebs by EMS. Bipap improved pt's symptoms and she felt more comfortable. Pt reports hx of low BP, however pt's BP very low here, given 250 mo bolus which helped initially. Doubt due to sepsis or cardiogenic shock. After initial response, attempted to wean off bipap prior to giving lasix so as to not drop pt's BP any further. Pt reported feeling improved. Discussed with medicine for additional evaluation. Consults Time Called: 0300 Consulting Physician: Dr. Rubén SNIDER Hospitalist Returned Call: 0315 I discussed the case with Dr. Rubén SNIDER Hospita[facility]. He will evaluate the patient for further treatment. Impression Primary Impression: Dyspnea Additional Impressions: CHF (congestive heart failure) Pneumonia Critical Care I have personally spent 40 minutes of critical care time in the direct management of this patient. This includes bedside care, interpretation of diagnostic studies, and testing, discussion with consultants, patient, and family members, and other required patient management activities. This 40 minutes is in excess of all separately billable procedures. Scribe Attestation The scribe's documentation has been prepared under my direction and personally reviewed by me in its entirety. I confirm that the note above accurately reflects all work, treatment, procedures, and medical decision making performed by me. Departure Information Dispostion Being Evaluated By Hospitalist Referrals Isauro Lange M.D. (PCP) Problem Qualifiers Primary Impression: Dyspnea Dyspnea type: shortness of breath Qualified Codes: R06.02 - Shortness of breath Additional Impressions: CHF (congestive heart failure) Congestive heart failure type: combined Congestive heart failure chronicity: acute on chronic Qualified Codes: I50.43 - Acute on chronic combined systolic (congestive) and diastolic (congestive) heart failure Pneumonia Pneumonia type: due to unspecified organism Laterality: left Lung location : lower lobe of lung Qualified Codes: J18.1 - Lobar pneumonia, unspecified organism
[2017-03-21 00:58] LABS: BASO % 0.2 %; BASO ABS # 0.02 K/uL (0-0.2); EOS % 1.1 %; HEMATOCRIT 40.1 % (37-47); HEMOGLOBIN 12.8 g/dL (12.0-16.0); IG# 0.03 K/uL (0.00-0.02); LYMPH % 16.6 %; LYMPH ABS # 1.51 K/uL (1.2-3.4); MEAN CELL VOLUME 103.9 fL (80-100); MEAN CORPUSCULAR HEMOGLOBIN 33.2 pg (25-34); MEAN CORPUSCULAR HGB CONC 31.9 g/dl (32-36); MEAN PLATELET VOLUME 10.5 fL (7.4-10.4); MONO % 5.2 %; MONO ABS # 0.47 K/uL (0.11-0.59); NEUT % 76.6 %; NEUT ABS # 6.99 K/uL (1.4-6.5); PLATELET COUNT 285 K/uL (130-400); RED CELL DISTRIBUTION WIDTH CV 14.1 % (11.5-14.5); RED CELL DISTRIBUTION WIDTH SD 53.3 fL (36.4-46.3); WHITE BLOOD COUNT 9.12 K/uL (4.8-10.8)
[2017-03-21] MEDS ORDERED: LEVAQUIN 750MG / 150ML D5W IV STA (01:11)
[2017-03-21 01:15] LABS: ALBUMIN 2.9 gm/dl (3.4-5.0); ALT/SGPT 17 U/L (12-78); BLOOD UREA NITROGEN 22 mg/dl (7-18); CALCIUM 8.2 mg/dl (8.5-10.1); CARBON DIOXIDE 33 mmol/L (21-32); CREATININE 1.27 mg/dl (0.60-1.20); GLUCOSE 149 mg/dl (70-99); POTASSIUM 3.2 mmol/L (3.5-5.1); SODIUM 135 mmol/L (136-145)
[2017-03-21] MEDS ORDERED: SODIUM CHLORIDE 0.9% 250ML 250 ML IV STA (01:19)
[2017-03-21 01:20] LABS: ALKALINE PHOSPHATASE 109 U/L (45-117); AST/SGOT 18 U/L (15-37); TOTAL PROTEIN 6.4 gm/dl (6.4-8.2)
[2017-03-21 01:23] LABS: INFLUENZA B ANTIGEN Neg for Influ B (NEG)
[2017-03-21] MEDS ORDERED: LEVO150T9 PO (01:46)
[2017-03-21] MEDS ORDERED: BUME2TAB3 PO (01:49)
[2017-03-21] MEDS ORDERED: POTA1TAB97 PO (01:52)
[2017-03-21] MEDS ORDERED: AMIO200T4 PO (01:56)
[2017-03-21] MEDS ORDERED: ACET-1256 PO ×2 (01:57→02:03)
[2017-03-21] MEDS ORDERED: AFRINWC NAE (02:06)
[2017-03-21] MEDS ORDERED: FUROSEMIDE 40 MG/4 ML VIAL IV STA (02:07)
--- NOTE | 2017-03-21 03:50 | History and Physical ---
History & Physical Date & Time of Service: Mar 21, 2017 at 03:34 Chief Complaint: Shortness Of Breath Primary Care Physician: Isauro Lange M.D. History of Present Illness Source: patient, hospital records 81 y/o F Hx CAD, HTN, HLD, COPD, chronic diastolic CHF - developed acute SOB early AM. Initially exhibited moderate respiratory distress on arrival to the ER. She markedly improved with Bipap alone. Diuresis was not provided as she was borderline hypotensive. Despite this she was able to transition to a nasal canula gradually and is breathing comfortably at the time of evaluation for admission. The pt denies any CP, N/V, fevers or rigors. Her BP continues to fluctuate with a systolic pressure mid 80s to mid 90s. A CT chest was obtained. There is no reported vascular congestion or infiltrates. 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 Past Medical/Surgical History 1) CHF - chronic diastolic - EF 55% 2) AAA 3) CAD 4) Carotid stenosis 5) COPD - home 02 QHS 6) TIA 7) SBO 8) Hypothyroidism 9) HTN 10) HLD 11) Pulmonary hypertension 12) Subclavian steal syndrome Surgical: 1) AAA repair 2) B/L carotid endarterectomy Family History No pertinent family history Father - CVA, DM Mother - Alzheimer dementia Brother - lung CA Social History Smoking Status: Former Smoker Drug Use: none Occupational Status: unemployed Immunizations History of Influenza Vaccine: Yes Influenza Vaccine Date: Jan 12, 2013 History of Tetanus Vaccine?: Unknown History of Pneumococcal: Yes History of Hepatitis B Vaccine: Unknown Multi-Drug Resistant Organisms History of MDRO: No Allergies Coded Allergies: Ramipril (Verified Allergy, Unknown, Cough, 03/17/17) Home Medications Scheduled Acetaminophen (Tylenol), 1,000 MG PO QAM Acetaminophen (Tylenol), 500 MG PO QPM Amiodarone Hcl (Cordarone), 200 MG PO DAILY Amlodipine Besylate (Norvasc), 2.5 MG PO QAM Aspirin (Aspirin Ec), 1 TAB PO QAM Atorvastatin (Lipitor), 80 MG PO HS Bumetanide (Bumex), 2 MG PO DAILY Carvedilol (Coreg), 3.125 MG PO BID Cholecalciferol (Vitamin D3), 2,000 UNITS PO HS Clopidogrel (Plavix), 75 MG PO QAM Cyanocobalamin (Vitamin B-12), 1,000 MCG PO QAM Gabapentin (Neurontin), 300 MG PO TID Levothyroxine Sodium (Levothyroxine Sodium), 150 MCG PO DAILY Potassium Chloride (K-Tab), 20 MEQ PO DAILY Spironolactone (Aldactone), 25 MG PO QAM Scheduled PRN Acetaminophen (Tylenol), 1,000 MG PO Q6H PRN for Pain Nitroglycerin (Nitrostat), 0.4 MG UT PRN PRN for Chest Pain Oxymetazoline Hcl (Afrin 0.05% Nasal [place]), 2 SPRAYS DONA Q4H PRN for NOSE BLEEDS Tramadol (Ultram), 50-100 MG PO Q6H PRN for Pain Trazodone Hcl (Trazodone), 25 MG PO HS PRN for Sleep Review of Systems Constitutional: No fever, No chills Eyes: No worsening of vision ENT: No hearing loss, No unusual epistaxis, No nasal symptoms Respiratory: + cough, + sputum, + shortness of breath, + dyspnea on exertion, + dyspnea at rest, No wheezing Cardiovascular: + orthopnea, No chest pain Abdomen: No pain, No nausea, No vomiting Musculoskeletal: No joint pain Genitourinary - Female: No dysuria, No urinary frequency, No urinary urgency Neurologic: No memory loss, No paralysis, No weakness Psychiatric: No depression symptoms Endocrine: No fatigue Hematologic / Lymphatic: No abnormal bleeding/bruising Integumentary: No rash Allergic / Immunologic: No environmental allergies Physical Exam Vital Signs Date Time Temp Pulse Resp B/P (MAP) Pulse Ox O2 Delivery O2 Flow Rate FiO2 03/21/17 03:15 79 20 94/74 99 Nasal Cannula 4.0 03/21/17 03:00 88 22 85/66 96 Nasal Cannula 4.0 03/21/17 02:45 85 16 91/68 97 Nasal Cannula 4.0 03/21/17 02:30 81 15 90/70 97 Nasal Cannula 4.0 03/21/17 02:17 81/66 03/21/17 02:15 80 22 81/63 99 BiPAP 50 03/21/17 02:00 79 26 92/71 98 BiPAP 50 03/21/17 01:45 82 14 96/75 98 BiPAP 50 03/21/17 01:30 79 14 93/72 100 BiPAP 50 03/21/17 01:17 80 24 77/59 98 BiPAP 50 03/21/17 01:08 86 22 87/55 95 BiPAP 03/21/17 01:00 84 20 79/62 95 BiPAP 03/21/17 00:28 94 03/21/17 00:20 95 94 03/21/17 00:17 84 Nasal Cannula 4.0 03/21/17 00:17 37.0 92 18 109/73 95 CPAP 03/21/17 00:17 95 CPAP General Appearance: WD/WN, no apparent distress, + pertinent finding (Pleasant elderly female in no distress) Head: normocephalic Eyes: normal inspection ENT: normal ENT inspection Neck: supple, no JVD Respiratory/Chest: chest non-tender, + pertinent finding (Crackles are present in the R lower lobe and coarse crackles are present in the entire L lung field) Cardiovascular: regular rate, rhythm, no edema, + systolic murmur Abdomen/GI: normal bowel sounds, non tender, soft Back: normal inspection, no CVA tenderness, + pertinent finding (Pronounced kyphosis) Extremities/Musculoskelatal: no calf tenderness, normal capillary refill, + pedal edema Neurologic/Psych: travel physical therapist II-XII nml as tested, no motor/sensory deficits, alert Diagnostics Laboratory Results Results Past 24 Hours Test 03/21/17 00:45 03/21/17 00:55 Range/Units White Blood Count 9.12 4.8-10.8 K/uL Red Blood Count 3.86 4.2-5.4 M/uL Hemoglobin 12.8 12.0-16.0 g/dL Hematocrit 40.1 37-47 % Mean Corpuscular Volume 103.9 80-100 fL Mean Corpuscular Hemoglobin 33.2 25-34 pg Mean Corpuscular Hemoglobin Concent 31.9 32-36 g/dl Platelet Count 285 130-400 K/uL Mean Platelet Volume 10.5 7.4-10.4 fL Neutrophils (%) (Auto) 76.6 % Lymphocytes (%) (Auto) 16.6 % Monocytes (%) (Auto) 5.2 % Eosinophils (%) (Auto) 1.1 % Basophils (%) (Auto) 0.2 % Neutrophils # (Auto) 6.99 1.4-6.5 K/uL Lymphocytes # (Auto) 1.51 1.2-3.4 K/uL Monocytes # (Auto) 0.47 0.11-0.59 K/uL Eosinophils # (Auto) 0.10 0-0.5 K/uL Basophils # (Auto) 0.02 0-0.2 K/uL RDW Standard Deviation 53.3 36.4-46.3 fL RDW Coefficient of Variation 14.1 11.5-14.5 % Immature Granulocyte % (Auto) 0.3 % Immature Granulocyte # (Auto) 0.03 0.00-0.02 K/uL Prothrombin Time 10.2 9.0-12.0 SECONDS Prothromb Time International Ratio 1.0 0.9-1.1 Sodium Level 135 136-145 mmol/L Potassium Level 3.2 3.5-5.1 mmol/L Chloride Level 96 98-107 mmol/L Carbon Dioxide Level 33 21-32 mmol/L Anion Gap 6.0 3-11 mmol/L Blood Urea Nitrogen 22 7-18 mg/dl Creatinine 1.27 0.60-1.20 mg/dl Est Creatinine Clear Calc Drug Dose 30.8 ml/min Estimated GFR () 45.2 Estimated GFR (Non- 39.0 BUN/Creatinine Ratio 17.2 10-20 Random Glucose 149 70-99 mg/dl Calcium Level 8.2 8.5-10.1 mg/dl Magnesium Level 2.1 1.8-2.4 mg/dl Total Bilirubin 0.4 0.2-1 mg/dl Aspartate Amino Transf (AST/SGOT) 18 15-37 U/L Alanine Aminotransferase (ALT/SGPT) 17 12-78 U/L Alkaline Phosphatase 109 45-117 U/L Troponin I < 0.015 0-0.045 ng/ml Pro-B-Type Natriuretic Peptide 96262 0-1800 pg/ml Total Protein 6.4 6.4-8.2 gm/dl Albumin 2.9 3.4-5.0 gm/dl Globulin 3.5 2.5-4.0 gm/dl Albumin/Globulin Ratio 0.8 0.9-2 Influenza Type A Antigen Neg for Influ A NEG Influenza Type B Antigen Neg for Influ B NEG Diagnostic Radiology CT chest without contrast: Prominent multifocal aneurysm of the descending thoracic aorta up to 5.2 CM Medial clavicular fracture of indeterminate age 1.1 CM spiculated mass in RUL - cannot exclude malignancy EKG Sinus, PVCs, L atrial enlargement, L axis Impression Assessment and Plan 81 y/o F Hx CAD, HTN, HLD, COPD, chronic diastolic CHF - developed acute SOB early AM. Initially exhibited moderate respiratory distress on arrival to the ER. She markedly improved with Bipap alone. Diuresis was not provided as she was borderline hypotensive. Despite this she was able to transition to a nasal canula gradually and is breathing comfortably at the time of evaluation for admission. The pt denies any CP, N/V, fevers or rigors. Her BP continues to fluctuate with a systolic pressure mid 80s to mid 90s. A CT chest was obtained. There is no reported vascular congestion or infiltrates. 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 1) Acute hypoxia/respiratory distress. Etiology is not clear - she improved with Bipap alone. The pt is placed on scheduled nebulizers, abx, IV steroids and an 02 protocol for presumed COPD exacerbation. Do to the findings on her CT and lack of clear etiology for her acute distress, we will repeat a study with contrast to r/o PE and dissection. Results are pending at the time of admission. Her QT is slightly prolonged and she takes Amio although she does not know why - we will use Doxycycline as an antibiotic therefore. 2) Hypotension - may be due to dehydration although thus far her response to IVF has been marginal. We will check a random Cortisol, continue fluids and hold her HTN meds and Diuretics aside from Carvedilol with parameters. If hypotension recurs we will consider transfer to the ICU. 3) CHF - no evidence of overload currently - she will need careful volume monitoring as we will provide her with IVF currently. 4) Aneurysm on current imaging - as above, we are pending a contrast study. 5) 1.1 cm spiculated mass is present in the RUL - suspicious for malignancy and should be followed in the outpt setting. Full code - SCDs pending result of CTA Total time for this admit including review of labs, meds, imaging - discussion with pt and ER attending - 43 min Level of Care Telemetry Resuscitation Status FULL RESUSCITATION VTE Prophylaxis Given or contraindicated: Unfractionated heparin SQ
[2017-03-21] MEDS ORDERED: ACETAMINOPHEN 325 MG TAB PO PRN (04:00)
[2017-03-21] MEDS ORDERED: TRAZODONE HCL 50 MG TAB PO PRN (04:00)
[2017-03-21] MEDS ORDERED: SODIUM CHLORIDE 0.9% 1000ML 1,000 ML IV SCH (04:00)
[2017-03-21] MEDS ORDERED: ONDANSETRON INJ 2 MG/ML 2 ML VIAL IV PRN (04:00)
[2017-03-21] MEDS ORDERED: MAGNESIUM HYDROXIDE SUSP 30 ML UDC PO PRN (04:00)
[2017-03-21] MEDS ORDERED: LEVALBUTEROL 1.25MG/3ML NEB INH PRN (04:00)
[2017-03-21] MEDS ORDERED: POLYETHYLENE (MIRALAX) 17 GM PACK PO PRN (04:00)
[2017-03-21] MEDS ORDERED: ALUMINUM/MAGNESIUM/SIMETH (MAALOX MAX) 30 ML UDC PO PRN (04:00)
[2017-03-21] MEDS ORDERED: MoRPHine SULFATE 2 MG/ML CARP IV PRN (04:00)
[2017-03-21] MEDS ORDERED: TRAMADOL HCL 50 MG TAB PO PRN (04:00)
[2017-03-21] MEDS ORDERED: POTASSIUM CHLORIDE PWD 20 MEQ PACK PO ONE (05:00)
[2017-03-21] MEDS ORDERED: OPTIRAY 320 IV PRN (06:00)
[2017-03-21] MEDS ORDERED: HEPARIN SOD 5000 UNIT/0.5 ML CARP SQ SCH (06:00)
[2017-03-21] MEDS ORDERED: NSS + 20MEQ KCL 1000ML 1,000 ML IV SCH (06:15)
[2017-03-21] MEDS: LEVOTHYROXINE 150 MCG TAB PO SCH (06:37)
--- NOTE | 2017-03-21 07:24 | DIAGNOSTIC IMAGING REPORT ---
CHEST ONE VIEW PORTABLE CLINICAL HISTORY: Shortness of breath. COMPARISON STUDY: Chest radiograph July 08, 2016. FINDINGS: Interstitial thickening suggests mild pulmonary edema. There are mild bibasilar opacities. Patient is rotated. There is no pneumothorax. There is no lobar consolidation. Peripherally calcified abnormality within the lower mediastinum represents a thoracoabdominal aneurysm which was shown on prior abdominal CT of July 02, 2016. IMPRESSION: 1. Interstitial thickening suggestive of mild pulmonary edema. 2. Mild bibasilar opacities which favor atelectasis. An infectious process could appear similar although is considered less likely. 3. Redemonstration of a thoracoabdominal aortic aneurysm, suboptimally assessed by radiography. Electronically signed by: Mukul Krause M.D. 03/21/2017 7:23 AM Dictated Date/Time: 03/21/2017 7:18 AM
[2017-03-21] MEDS: ALBUT/IPRATROP 3MG/0.5MG NEB 3 ML VIAL INH SCH ×3 (07:36→19:07)
[2017-03-21] MEDS: AMIODARONE 200 MG TAB PO SCH (07:41)
[2017-03-21] MEDS: CLOPIDOGREL BISULFATE 75 MG TAB PO SCH (07:42)
[2017-03-21] MEDS: POTASSIUM CHLORIDE 20 MEQ TABCR PO SCH (07:42)
[2017-03-21] MEDS: GABAPENTIN 300 MG CAP PO SCH ×3 (07:43→21:57)
[2017-03-21] MEDS: METHYLPREDNISOLONE IV 40 MG in SYRINGE 0 ML IV SCH ×3 (07:43→19:38)
[2017-03-21] MEDS: CYANOCOBALAMIN 500 MCG TAB (VIT B-12) PO SCH (07:44)
[2017-03-21] MEDS: ASPIRIN 81 MG ECTAB PO SCH (07:44)
[2017-03-21] MEDS: CARVEDILOL 3.125 MG TAB PO SCH ×2 (07:57→21:00)
[2017-03-21] MEDS: DOXYCYCLINE IV 100 MG in DEXTROSE 5% 100ML 100 ML IV SCH ×2 (08:39→21:57)
--- NOTE | 2017-03-21 08:52 | DIAGNOSTIC IMAGING REPORT ---
CT OF THE CHEST WITHOUT IV CONTRAST CLINICAL HISTORY: Shortness of breath and chest pain. COMPARISON STUDY: Chest radiograph March 21, [address] of the abdomen and pelvis July 02, 2016. CT DOSE: 193.82 mGy.cm TECHNIQUE: Axial images of the chest were obtained without IV contrast. Images were reviewed in the axial, sagittal, and coronal planes. IV contrast was not administered for this examination. A dose lowering technique was utilized adhering to the principles of ALARA. FINDINGS: No enlarged axillary, mediastinal or hilar lymph nodes are present. There is moderate cardiomegaly and extensive coronary artery calcification. Note is again made of aneurysmal dilatation of the distal descending thoracic aorta and proximal abdominal aorta which is suboptimally assessed on this unenhanced exam. A 6.7 x 5.3 cm aneurysm of the distal descending thoracic aorta has mildly increased in size since CT of July 02, 2016 when it measured 6.5 x 5.1 cm. An associated 2.2 cm saccular aneurysm arising from the right lateral aspect of the distal descending thoracic aorta is unchanged. Aneurysmal dilatation of visualized portions of the abdominal aorta has slightly increased. The proximal abdominal aorta measures 4.[address] measured 4.2 cm. There is no pneumothorax. A small left pleural effusion is noted. There is moderate emphysema. Right lower lobe segment mental opacity favors atelectasis. Groundglass opacities within the left lower lung favors atelectasis. Mild interlobular septal thickening may reflect mild pulmonary edema. There is a 9 mm irregular right upper lobe density shown on image 120 of 281. There is an adjacent 6 mm nodular density shown on image 113. There is a subacute fracture of the medial right clavicle as well as old bilateral rib fractures. A suspected cyst within the medial segment of the left hepatic lobe is noted. IMPRESSION: 1. Mild increase in size of the thoracoabdominal aortic aneurysm since abdominal CT of July 02, 2016. Distal descending thoracic aortic aneurysm measures 6.5 x 5.1 cm. No evidence for rupture. No intramural hematoma. 2. Small left pleural effusion. 3. Findings suggestive of mild pulmonary edema. 4. 9 mm irregular right upper lobe opacity and an adjacent 6 mm nodular density. These two findings are indeterminate and a follow-up chest CT in 3 months is recommended. 5. Moderate emphysema. Electronically signed by: Mukul Krause M.D. 03/21/2017 8:51 AM Dictated Date/Time: 03/21/2017 8:37 AM
[2017-03-21] MEDS ORDERED: SPIRONOLACTONE 25 MG TAB PO SCH (09:00)
[2017-03-21] MEDS ORDERED: BUMETANIDE 1 MG TAB PO SCH (09:00)
[2017-03-21] MEDS ORDERED: AMLODIPINE BESYLATE 5 MG TAB PO SCH (09:00)
--- NOTE | 2017-03-21 10:29 | DIAGNOSTIC IMAGING REPORT ---
CHEST ANGIO WITH CONTRAST CLINICAL HISTORY: Respiratory distress. Evaluate for dissection or pulmonary embolus. COMPARISON STUDY: Chest CT March 21, 2017. TECHNIQUE: Unenhanced and arterial phase imaging of the chest was performed. Injection of 119 cc Optiray 320 IV was uneventful. Sagittal and coronal reconstructions were viewed as well as maximal intensity projections on an independent 3-D workstation. FINDINGS: No enlarged axillary, mediastinal or hilar lymph nodes are present. There is moderate cardiomegaly and extensive coronary artery calcification. Note is again made of aneurysmal dilatation of the distal descending thoracic aorta and proximal abdominal aorta. A 6.7 x 5.3 cm aneurysm of the distal descending thoracic aorta has mildly increased in size since CT of July 02, 2016 when it measured 6.5 x 5.1 cm. An associated 2.2 cm saccular aneurysm arising from the right lateral aspect of the distal descending thoracic aorta is unchanged. No thoracic aortic dissection is noted. No pulmonary emboli are identified. Aneurysmal dilatation of visualized portions of the abdominal aorta has slightly increased. The proximal abdominal aorta measures 4.4 cm. It previously measured 4.2 cm. Severe stenosis of the right subclavian artery just distal to the takeoff of the right common carotid artery is noted. There is also moderate stenosis at origin of the brachiocephalic trunk and suspected severe stenosis at the origin of the left common carotid artery. Note is made of suspected severe stenosis of the proximal right common carotid artery Evaluation is difficult given extensive atherosclerotic calcification. There is occlusion of the proximal left subclavian artery with distal reconstitution. There is no pneumothorax. A small left pleural effusion is noted. There is moderate emphysema. Right lower lobe segment mental opacity favors atelectasis. Groundglass opacities within the left lower lung favors atelectasis. Mild interlobular septal thickening may reflect mild pulmonary edema. There is a 9 mm irregular right upper lobe density shown on image 120 of 281. There is an adjacent 6 mm nodular density shown on image 113. There is a subacute fracture of the medial right clavicle as well as old bilateral rib fractures. A suspected cyst within the medial segment of the left hepatic lobe is noted. IMPRESSION: 1. Mild increase in size of the thoracoabdominal aortic aneurysm since abdominal CT of July 02, 2016. Distal descending thoracic aortic aneurysm measures 6.5 x 5.1 cm. No evidence for rupture. No intramural hematoma. No thoracic aortic dissection. No pulmonary emboli. 2. Small left pleural effusion. 3. Findings suggestive of mild pulmonary edema. 4. 9 mm irregular right upper lobe opacity and an adjacent 6 mm nodular density. These two findings are indeterminate and a follow-up chest CT in 6 months is recommended. 5. Moderate emphysema. 6. 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 Extensive atherosclerotic plaque within these vessels makes evaluation difficult. Electronically signed by: Mukul Krause M.D. 03/21/2017 10:28 AM Dictated Date/Time: 03/21/2017 10:13 AM
--- NOTE | 2017-03-21 10:41 | DIAGNOSTIC IMAGING REPORT ---
ANGIO ABDOMEN WITH CONTRAST CLINICAL HISTORY: Thoracoabdominal aortic aneurysm. Evaluate for dissection. COMPARISON STUDY: CT of the abdomen and pelvis July 02, 2016. TECHNIQUE: Arterial phase imaging of the abdomen was performed. Injection of 119 cc of Optiray 320 IV was uneventful. Sagittal and coronal reconstructions were viewed as well as maximal intensity projections on an independent 3-D workstation. FINDINGS: A 6.7 x 5.3 cm aneurysm of the distal descending thoracic aorta has mildly increased in size since CT of July 02, 2016 when it measured 6.5 x 5.1 cm. An associated 2.2 cm saccular aneurysm arising from the right lateral aspect of the distal descending thoracic aorta is unchanged. Aneurysmal dilatation of the abdominal aorta has increased since exam of July 02, 2016. Super renal abdominal aorta measures 4.5 cm in caliber. It previously measured 4.3 cm. This extensive atherosclerotic plaque. 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 There is occlusion with distal reconstitution of the right renal artery. Right kidney is markedly atrophic. There are suspected bilateral renal cysts. There are numerous hepatic cysts. A left ventral hernia contains a portion of the transverse colon. Caliber of visualized small and large bowel are normal. No pneumatosis, free air or portal venous gas is present. Small left pleural effusion is noted. Right lower lobe airspace opacity favors atelectasis. There are no suspicious osseous lesions. The adrenal glands and pancreas are unremarkable. There is no biliary or pancreatic ductal dilatation. IMPRESSION: 1. Mild increase in size of the thoracoabdominal aortic aneurysm since abdominal CT of July 02, 2016. Distal descending thoracic aortic aneurysm measures 6.5 x 5.1 cm. No evidence for rupture. No intramural hematoma. No abdominal aortic dissection. 2. 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 Marked right renal atrophy. Electronically signed by: Mukul Krause M.D. 03/21/2017 10:39 AM Dictated Date/Time: 03/21/2017 10:30 AM
--- NOTE | 2017-03-21 11:05 | Cardiology Consultation ---
Cardiology Consultation Date of Consultation: Mar 21, 2017. Requesting Physician: Dr. Kamara Reason for Consultation: SOB Pt evaluation today including: conversation w/ patient, physical exam, lab review, review of studies, review of inpatient medication list, conversation w/ attending History of Present Illness This is a 81-year-old woman who has a history of coronary artery disease including stenting of her LAD and right coronary artery, chronic systolic congestive heart failure, aortic stenosis and extensive vascular disease. She has had an abdominal aortic aneurysm repair and has a thoracoabdominal aneurysm , she is also had a carotid endarterectomy. She was admitted for a small bowel obstruction in June 2016 and developed atrial fibrillation with a rapid ventricular response. She had significant hypotension with the atrial fibrillation, and was treated with rate control but ultimately needed cardioversion. She is on amiodarone now. I don't believe she is on an anticoagulant. She presented on 03/20/2017 with shortness of breath, as well as peripheral edema which has been progressive. She was hypoxic even on oxygen on arrival in the emergency room. Her BNP was elevated, troponins 2 have been negative. Chest x-ray was consistent with mild pulmonary edema. She is feeling much better this morning than last night, the reasons aren't entirely clear but she did receive a breathing treatment. She is on oxygen as well. She notes that her leg swelling is about the same as it was preadmission. She has had no chest discomfort or Past Medical/Surgical History (1) CHF (congestive heart failure) Coronary artery disease Thoracoabdominal aneurysm Extensive peripheral vascular disease Carotid arterial disease Aortic stenosis Family History No pertinent family history Social History Smoking Status: Former Smoker History of Alcohol Use: No Review of Systems Constitutional: No fever, No weight loss, No weakness Respiratory: + see HPI, + shortness of breath Cardiac: + see HPI, + edema, No chest pain, No orthopnea, No PND, No palpitations Abdomen: No pain, No nausea, No vomiting, No diarrhea, No GI bleeding Female : No problem reported Neurologic: No paralysis, No weakness, No numbness/tingling, No balance problems Heme: No abnormal bleeding/bruising, No clotting problems Endo: No fatigue Skin: No problem reported All Other Systems: Reviewed and Negative Allergies Coded Allergies: Ramipril (Verified Allergy, Unknown, Cough, 03/17/17) Medications Current Inpatient Medications Medications (Trade) Dose Ordered Sig/Nicko Route Start Time Stop Time Status Last Admin Dose Admin Amiodarone HCl (Cordarone Tab) 200 mg DAILY PO 03/21/17 09:00 04/20/17 08:59 03/21/17 07:41 200 MG Aspirin (Ecotrin Tab) 81 mg QAM PO 03/21/17 09:00 04/20/17 08:59 03/21/17 07:44 81 MG Atorvastatin Calcium (Lipitor Tab) 80 mg HS PO 03/21/17 21:00 04/20/17 20:59 Carvedilol (Coreg Tab) 3.125 mg BID PO 03/21/17 09:00 04/20/17 08:59 Clopidogrel Bisulfate (plAVix TAB) 75 mg QAM PO 03/21/17 09:00 04/20/17 08:59 03/21/17 07:42 75 MG Cyanocobalamin (Vitamin B-12 Tab) 1,000 mcg QAM PO 03/21/17 09:00 04/20/17 08:59 03/21/17 07:44 1,000 MCG Gabapentin (Neurontin Cap) 300 mg TID PO 03/21/17 09:00 04/20/17 08:59 03/21/17 07:43 300 MG Levothyroxine Sodium (Synthroid Tab) 150 mcg DAILYBB PO 03/21/17 06:00 04/20/17 05:59 03/21/17 06:37 150 MCG Tramadol HCl (Ultram Tab) 50 mg Q6H PRN PO 03/21/17 04:00 04/20/17 03:59 Trazodone HCl (Desyrel Tab) 25 mg HS PRN PO 03/21/17 04:00 04/20/17 03:59 Cholecalciferol (Vitamin D Tab) 2,000 inter.unit HS PO 03/21/17 21:00 04/20/17 20:59 Potassium Chloride (Klor-Con Tab) 20 meq DAILY PO 03/21/17 09:00 04/20/17 08:59 03/21/17 07:42 20 MEQ Acetaminophen (Tylenol Tab) 650 mg Q4H PRN PO 03/21/17 04:00 04/20/17 03:59 Al Hydrox/Mg Hydrox/Simethicone (Maalox Max Susp) 15 ml Q4H PRN PO 03/21/17 04:00 04/20/17 03:59 Magnesium Hydroxide (Milk Of Magnesia Susp) 30 ml Q12H PRN PO 03/21/17 04:00 04/20/17 03:59 Ondansetron HCl (Zofran Inj) 4 mg Q6H PRN IV 03/21/17 04:00 04/20/17 03:59 Morphine Sulfate (MoRPHine SULFATE INJ) 2 mg Q30M PRN IV 03/21/17 04:00 04/04/17 03:59 Polyethylene (Miralax Powder Packet) 17 gm DAILY PRN PO 03/21/17 04:00 04/20/17 03:59 Albuterol/ Ipratropium (Duoneb) 3 ml Q6R INH 03/21/17 09:00 04/20/17 08:59 03/21/17 07:36 3 ML Levalbuterol (Xopenex 1.25MG/ 3ML Neb) 1.25 mg Q4R PRN INH 03/21/17 04:00 04/20/17 03:59 Doxycycline Hyclate 100 mg/ Dextrose 110 ml @ 50 mls/hr Q12H IV 03/21/17 09:00 03/28/17 08:59 03/21/17 08:39 50 MLS/HR Ioversol (Optiray 320) 100 ml UD PRN IV 03/21/17 06:00 03/25/17 05:59 Potassium Chloride/Sodium Chloride 1,000 ml @ 80 mls/hr [id number] IV 03/21/17 06:15 03/21/17 18:44 03/21/17 06:37 80 MLS/HR Methylprednisolone Sodium Succinate 40 mg/Syringe 0.64 ml @ 1.5 mls/min Q6H IV 03/21/17 07:00 04/20/17 06:59 03/21/17 07:43 1.5 MLS/MIN Physical Exam Vital Signs Past 12 Hours Date Time Temp Pulse Resp B/P (MAP) Pulse Ox O2 Delivery O2 Flow Rate FiO2 03/21/17 08:05 97 Nasal Cannula 4.0 03/21/17 07:58 36.6 81 16 88/66 (73) 92 Nasal Cannula 03/21/17 07:36 85 16 97 Nasal Cannula 3.0 03/21/17 05:50 36.4 103 18 96/56 98 Nasal Cannula 4.0 03/21/17 04:29 79 22 96 03/21/17 04:14 82 90/71 94 Nasal Cannula 4.0 03/21/17 03:45 82 81/64 97 Nasal Cannula 4.0 03/21/17 03:30 82 17 86/74 98 4.0 03/21/17 03:15 79 20 94/74 99 Nasal Cannula 4.0 03/21/17 03:00 88 22 85/66 96 Nasal Cannula 4.0 03/21/17 02:45 85 16 91/68 97 Nasal Cannula 4.0 03/21/17 02:30 81 15 90/70 97 Nasal Cannula 4.0 03/21/17 02:17 81/66 03/21/17 02:15 80 22 81/63 99 BiPAP 50 03/21/17 02:00 79 26 92/71 98 BiPAP 50 03/21/17 01:45 82 14 96/75 98 BiPAP 50 03/21/17 01:30 79 14 93/72 100 BiPAP 50 03/21/17 01:17 80 24 77/59 98 BiPAP 50 03/21/17 01:08 86 22 87/55 95 BiPAP 03/21/17 01:00 84 20 79/62 95 BiPAP 03/21/17 00:28 94 03/21/17 00:20 95 94 03/21/17 00:17 84 Nasal Cannula 4.0 03/21/17 00:17 37.0 92 18 109/73 95 CPAP 03/21/17 00:17 95 CPAP Constitutional: General Apperance: heathly-appearing Level of Distress: NAD Psychiatric: Mental Status: active & alert Head: normocephalic Eyes: EOM: EOMI ENMT: normal ENT inspection, hearing grossly normal Neck: supple, no masses Lungs: Respiratory effort: no dyspnea, good air movement Auscultation: no wheezing, decreased breath sounds Cardiovascular: Heart Auscultation: RRR, no rubs, no gallops, III/ TINO Peripheral Pulses: Bruits: none appreciated Abdomen: Bowel Sounds: normal Inspection & Palpation: soft, no tenderness, guarding & rebound, no masses Musculoskeletal: normal strength (5/5 throughout) Extremities: edema (+2 on the left, +1 on right) Neurologic: Cranial Nerves: grossly intact Sensation: grossly intact Data Laboratory Results: Last 24 Hours Test 03/21/17 00:45 03/21/17 00:55 03/21/17 06:53 White Blood Count 9.12 K/uL Red Blood Count 3.86 M/uL Hemoglobin 12.8 g/dL Hematocrit 40.1 % Mean Corpuscular Volume 103.9 fL Mean Corpuscular Hemoglobin 33.2 pg Mean Corpuscular Hemoglobin Concent 31.9 g/dl Platelet Count 285 K/uL Mean Platelet Volume 10.5 fL Neutrophils (%) (Auto) 76.6 % Lymphocytes (%) (Auto) 16.6 % Monocytes (%) (Auto) 5.2 % Eosinophils (%) (Auto) 1.1 % Basophils (%) (Auto) 0.2 % Neutrophils # (Auto) 6.99 K/uL Lymphocytes # (Auto) 1.51 K/uL Monocytes # (Auto) 0.47 K/uL Eosinophils # (Auto) 0.10 K/uL Basophils # (Auto) 0.02 K/uL RDW Standard Deviation 53.3 fL RDW Coefficient of Variation 14.1 % Immature Granulocyte % (Auto) 0.3 % Immature Granulocyte # (Auto) 0.03 K/uL Prothrombin Time 10.2 SECONDS Prothromb Time International Ratio 1.0 Sodium Level 135 mmol/L Potassium Level 3.2 mmol/L Chloride Level 96 mmol/L Carbon Dioxide Level 33 mmol/L Anion Gap 6.0 mmol/L Blood Urea Nitrogen 22 mg/dl Creatinine 1.27 mg/dl Est Creatinine Clear Calc Drug Dose 30.8 ml/min Estimated GFR () 45.2 Estimated GFR (Non- 39.0 BUN/Creatinine Ratio 17.2 Random Glucose 149 mg/dl Calcium Level 8.2 mg/dl Magnesium Level 2.1 mg/dl Total Bilirubin 0.4 mg/dl Aspartate Amino Transf (AST/SGOT) 18 U/L Alanine Aminotransferase (ALT/SGPT) 17 U/L Alkaline Phosphatase 109 U/L Troponin I < 0.015 ng/ml 0.021 ng/ml Pro-B-Type Natriuretic Peptide 35428 pg/ml Total Protein 6.4 gm/dl Albumin 2.9 gm/dl Globulin 3.5 gm/dl Albumin/Globulin Ratio 0.8 Influenza Type A Antigen Neg for Influ A Influenza Type B Antigen Neg for Influ B Random Cortisol 18.17 mcg/dl Imaging: Chest x-ray is consistent with mild pulmonary edema. A CT scan done today shows a mild increase in the size of a thoracoabdominal aneurysm of the aorta, the descending thoracic aneurysm measures 6.5 x 5.1 cm. No evidence of ruptures. Also consistent with CHF. 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 There was also severe stenosis of the proximal carotid arteries. EKG: An electrocardiogram on arrival shows sinus rhythm with PVCs, nonspecific ST-T abnormalities and a relatively prolonged QT interval. Telemetry reviewed: Sinus rhythm with PVCs, one 12 beat run of an accelerated idioventricular rhythm at a rate around 100. No atrial fibrillation. Echocardiogram: Echocardiography done 07/03/2016 shows a small left ventricular cavity with mild concentric left ventricular hypertrophy and a normal overall ejection fraction with inferoposterior hypokinesis. There was mild aortic stenosis and mild MR. I do not see more recent one in the record. Assessment & Plan #1. Shortness of breath: She appears to have some degree of congestive heart failure, based on chest x-ray and CT findings and that is contributing to her hypoxia. I would agree with diuresis, it is likely diastolic based on her prior echocardiogram although may be prudent to repeat the echo to make sure she has not developed systolic dysfunction. Her creatinine is down compared to October. #2. Thoracoabdominal aneurysm: She has had some progression of her aneurysm, if she is not a surgical candidate and control of blood pressure is all we can do, it may be worth revisiting the thought of surgery but I will leave that up to the primary service. #3. 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 It may be difficult to know for sure what her aortic pressure is with her subclavian stenosis. I would go by the highest readings, not the lowest. #4. Aortic stenosis: This has not been significant the past, but repeat echo may be helpful to evaluate this. Based on exam it could be severe. Thank you for allowing me to participate in her care.
[2017-03-21] MEDS ORDERED: BUMETANIDE IV 2 MG in SYRINGE 0 ML IV ONE (11:15)
[2017-03-21] MEDS ORDERED: NURSING VERBAL MED ORDER ONE (15:15)
[2017-03-21] MEDS: BUMETANIDE IV 2 MG in SYRINGE 0 ML IV SCH (17:00)
[2017-03-21] MEDS: ATORVASTATIN 40 MG TAB PO SCH (21:58)
[2017-03-21] MEDS: CHOLECALCIFEROL 1000 INTER.UNIT TAB PO SCH (21:58)
--- NOTE | 2017-03-21 22:26 | Progress Note ---
Progress Note Date of Service Mar 21, 2017. Progress Note Patient has multiple issues at admission. 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 Extensive atherosclerotic plaque within these vessels makes evaluation difficult. This appears to be affecting her BP readings as they have been low. She also appears to have mild CHF and will benefit from diuresis. One dose was given. Cardiology recommends to use the higher BP (right arm) She also has a lung mass which will need to be monitored in future CT scans. Patient would like to be full code as this was discussed during this admission and with me.
[2017-03-22] VITALS (14 sets, daily range): BP systolic 67–81; BP diastolic 44–61; PULSE 54–105; TEMP 36.4–37; O2SAT 88–97
[2017-03-22] MEDS: METHYLPREDNISOLONE IV 40 MG in SYRINGE 0 ML IV SCH ×4 (01:13→19:25)
[2017-03-22] MEDS: ALBUT/IPRATROP 3MG/0.5MG NEB 3 ML VIAL INH SCH ×4 (01:35→19:00)
[2017-03-22] MEDS: LEVOTHYROXINE 150 MCG TAB PO SCH (06:07)
[2017-03-22] MEDS: DOXYCYCLINE IV 100 MG in DEXTROSE 5% 100ML 100 ML IV SCH ×2 (07:53→20:22)
[2017-03-22] MEDS: CLOPIDOGREL BISULFATE 75 MG TAB PO SCH (07:55)
[2017-03-22] MEDS: BUMETANIDE IV 2 MG in SYRINGE 0 ML IV SCH (07:55)
[2017-03-22] MEDS: GABAPENTIN 300 MG CAP PO SCH ×3 (07:56→20:19)
[2017-03-22] MEDS: POTASSIUM CHLORIDE 20 MEQ TABCR PO SCH (07:56)
[2017-03-22] MEDS: ASPIRIN 81 MG ECTAB PO SCH (07:56)
[2017-03-22] MEDS: AMIODARONE 200 MG TAB PO SCH (07:56)
[2017-03-22] MEDS: CYANOCOBALAMIN 500 MCG TAB (VIT B-12) PO SCH (07:56)
--- NOTE | 2017-03-22 09:15 | Cardiology Follow-Up ---
Subjective General Date of Service: Mar 22, 2017. Pt evaluation today including: conversation w/ patient, chart review, lab review, review of studies History of Present Illness The patient is a 81 year old female Allergies Coded Allergies: Ramipril (Verified Allergy, Unknown, Cough, 03/17/17) Social History Smoking Status: Former Smoker Hx Tobacco Use In Past Year?: No Hx Alcohol Use - Type And Amou: No Hx Substance Use - Type And Am: No Problem List Medical Problems: (1) CHF (congestive heart failure) Status: Chronic (2) Congestive heart failure Status: Acute (3) Dehydration Status: Acute (4) Dyspnea Status: Acute (5) Epistaxis Status: Acute (6) Hypotension Status: Acute (7) Lactic acidosis Status: Acute (8) Pneumonia Status: Acute (9) Pulmonary edema Status: Acute (10) Sepsis Status: Acute (11) Stroke Status: Acute Review of Systems Respiratory: + shortness of breath, + dyspnea on exertion, No cough, No dyspnea at rest Cardiac: No chest pain, No edema, No palpitations Physical Exam Vital Signs Last Vital Signs Documentation Date Time Temp Pulse Resp B/P (MAP) Pulse Ox O2 Delivery O2 Flow Rate FiO2 03/22/17 07:46 36.5 90 16 74/50 (58) 94 03/22/17 07:12 Nasal Cannula 3.0 03/21/17 02:15 50 Physical Exam Constitutional: General Apperance: heathly-appearing Level of Distress: NAD Psychiatric: Mental Status: active & alert Eyes: EOM: EOMI Lungs: Respiratory effort: no dyspnea, good air movement Auscultation: no wheezing, no rales/crackles, no rhonchi, decreased breath sounds (right base) Cardiovascular: Heart Auscultation: RRR, no rubs, no gallops, III/ TINO (radiating out towards both carotids) Peripheral Pulses: Bruits: none appreciated Abdomen: Bowel Sounds: normal Inspection & Palpation: soft, no tenderness, guarding & rebound, no masses Extremities: edema (+2 on the left, +1 on right) Assessment and Plan Assessment and Plan CTA: 1. Mild increase in size of the thoracoabdominal aortic aneurysm since abdominal CT of July 02, 2016. Distal descending thoracic aortic aneurysm measures 6.5 x 5.1 cm. No evidence for rupture. No intramural hematoma. No thoracic aortic dissection. No pulmonary emboli. 2. Small left pleural effusion. 3. Findings suggestive of mild pulmonary edema. 4. 9 mm irregular right upper lobe opacity and an adjacent 6 mm nodular density. These two findings are indeterminate and a follow-up chest CT in 6 months is recommended. 5. Moderate emphysema. 6. 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 Extensive atherosclerotic plaque within these vessels makes evaluation difficult. IMPRESSION: 1A. Acute on chronic systolic and diastolic CHF 1. Hx of Paroxysmal atrial fibrillation maintaining NSR with Amio and BB 2. History of ischemic cardiomyopathy, systolic function improved. 3. Peripheral hypotension,--Arm pressure is 50 mm/hg less than central aortic pressure 4. Vasculopath-- see CTA this admit 5. Mitral and aortic valvular disease previously moderate 6. Hx of Partial small bowel obstruction 7. Thoracoabdominal aortic aneurysm (6.7 x 5.3 cm), mild increase in size from --for medical Tx and treated conservatively. 8. Right carotid 100%; s/p left CEA Feels better Ambulate Weigh on standing scale Give BB with tachycardia and Add 50 mm/hg to Arm pressure to get an accurate blood pressure Change Bumex to daily IV today then to PO Medical TX for diffuse vascular disease Laboratory Results Last 24 Hours Test 03/21/17 18:34 Potassium Level 4.0 mmol/L
[2017-03-22] MEDS: CARVEDILOL 3.125 MG TAB PO SCH ×2 (09:17→20:20)
--- NOTE | 2017-03-22 09:33 | Clinical Documentation Query ---
GABRIELLE Mcguire : CLINICAL DOCUMENTATION QUERIES QUERY 1 OF 2 Patient is an 81 year old female admitted for evaluation of SOB. Initially provided IVF. BNP 18,004. CT scan of the chest read to include "mild pulmonary edema". She was provided IV Bumex and cardiology was consulted. Repeat echocardiogram pending. History of diastolic CHF. Documentation includes "She also appears to have mild CHF and will benefit from diuresis". As appropriate, consider documentation as suggested below. Thank you. In your clinical opinion is this patient being managed for: ( x ) Acute diastolic congestive heart failure ( ) Not Agree ( ) Other explanation of clinical findings (Please Explain) ( ) Unable to determine (Please Define) ( ) Need to Discuss The medical record reflects the following clinical findings, treatment, and risk factors. Clinical Indicators: As above Treatment:IV Bumex and cardiology was consulted. Repeat echocardiogram pending Risk Factors: History of diastolic CHF. IVF administration QUERY 2 OF 2 Admission BUN, creatinine, and estimated GFR were 22 mg/dl, 1.27 mg/dl, and 39 ml/min. Historical GFR range 30-60 ml/min from 06/29 to present. Please clarify as clinically appropriate as this impacts DRG assignment. Thank you. In your clinical opinion is this patient being managed for: ( x ) Chronic kidney disease, stage 3 ( ) Not Agree ( ) Other explanation of clinical findings (Please Explain) ( ) Unable to determine (Please Define) ( ) Need to Discuss The medical record reflects the following clinical findings, treatment, and risk factors. Clinical Indicators: As above Treatment: Serial chemistries Risk Factors: Age, chronic diastolic CHF, extensive vascular disease Please clarify and document your clinical opinion in the progress notes and discharge summary. Terms such as "probable", "suspected", "likely", "questionable", "possible", or "still to be ruled out" are acceptable. IF IN AGREEMENT, YOU MUST DOCUMENT ABOVE DIAGNOSTIC STATEMENT IN DAILY PROGRESS NOTES AND DISCHARGE SUMMARY. This document is not part of the patient's record. Thank You, Wally Luciano, RIMA [phone]
[2017-03-22 10:03] LABS: HEMATOCRIT 38.7 % (37-47); IG# 0.05 K/uL (0.00-0.02); LYMPH % 3.4 %; LYMPH ABS # 0.55 K/uL (1.2-3.4); MEAN CORPUSCULAR HEMOGLOBIN 32.3 pg (25-34); MEAN PLATELET VOLUME 10.9 fL (7.4-10.4); MONO % 1.9 %; MONO ABS # 0.31 K/uL (0.11-0.59); NEUT % 94.4 %; NEUT ABS # 15.41 K/uL (1.4-6.5); PLATELET COUNT 320 K/uL (130-400); RED CELL DISTRIBUTION WIDTH CV 14.1 % (11.5-14.5); RED CELL DISTRIBUTION WIDTH SD 53.9 fL (36.4-46.3); WHITE BLOOD COUNT 16.32 K/uL (4.8-10.8)
[2017-03-22 10:22] LABS: CALCIUM 8.5 mg/dl (8.5-10.1); CREATININE 1.54 mg/dl (0.60-1.20); POTASSIUM 3.6 mmol/L (3.5-5.1)
--- NOTE | 2017-03-22 13:55 | Progress Note ---
Subjective Date of Service: Mar 22, 2017. Subjective Pt evaluation today including: conversation w/ patient, physical exam, lab review, conversation w/ data management consultant, review of inpatient medication list Pain: no pain PO Intake: adequate Voiding: no voiding problems patient feeling well, breathing better, diuresed well appreciate note from Dr. Novak, patient's BP always low, need to adjust by about 50mmHg for actual BP participated in PT reviewed labs, stable Problem List Medical Problems: (1) CHF (congestive heart failure) Status: Chronic (2) Congestive heart failure Status: Acute (3) Dehydration Status: Acute (4) Dyspnea Status: Acute (5) Epistaxis Status: Acute (6) Hypotension Status: Acute (7) Lactic acidosis Status: Acute (8) Pneumonia Status: Acute (9) Pulmonary edema Status: Acute (10) Sepsis Status: Acute (11) Stroke Status: Acute Review of Systems Respiratory: + dyspnea on exertion Cardiac: + edema (left foot) All Other Systems: Reviewed and Negative Medications Current Inpatient Medications Medications (Trade) Dose Ordered Sig/Nicko Route Start Time Stop Time Status Last Admin Dose Admin Amiodarone HCl (Cordarone Tab) 200 mg DAILY PO 03/21/17 09:00 04/20/17 08:59 03/22/17 07:56 200 MG Aspirin (Ecotrin Tab) 81 mg QAM PO 03/21/17 09:00 04/20/17 08:59 03/22/17 07:56 81 MG Atorvastatin Calcium (Lipitor Tab) 80 mg HS PO 03/21/17 21:00 04/20/17 20:59 03/21/17 21:58 80 MG Carvedilol (Coreg Tab) 3.125 mg BID PO 03/21/17 09:00 04/20/17 08:59 03/22/17 09:17 3.125 MG Clopidogrel Bisulfate (plAVix TAB) 75 mg QAM PO 03/21/17 09:00 04/20/17 08:59 03/22/17 07:55 75 MG Cyanocobalamin (Vitamin B-12 Tab) 1,000 mcg QAM PO 03/21/17 09:00 04/20/17 08:59 03/22/17 07:56 1,000 MCG Gabapentin (Neurontin Cap) 300 mg TID PO 03/21/17 09:00 04/20/17 08:59 03/22/17 12:46 300 MG Levothyroxine Sodium (Synthroid Tab) 150 mcg DAILYBB PO 03/21/17 06:00 04/20/17 05:59 03/22/17 06:07 150 MCG Tramadol HCl (Ultram Tab) 50 mg Q6H PRN PO 03/21/17 04:00 04/20/17 03:59 Trazodone HCl (Desyrel Tab) 25 mg HS PRN PO 03/21/17 04:00 04/20/17 03:59 Cholecalciferol (Vitamin D Tab) 2,000 inter.unit HS PO 03/21/17 21:00 04/20/17 20:59 03/21/17 21:58 2,000 INTER.UNIT Potassium Chloride (Klor-Con Tab) 20 meq DAILY PO 03/21/17 09:00 04/20/17 08:59 03/22/17 07:56 20 MEQ Acetaminophen (Tylenol Tab) 650 mg Q4H PRN PO 03/21/17 04:00 04/20/17 03:59 Al Hydrox/Mg Hydrox/Simethicone (Maalox Max Susp) 15 ml Q4H PRN PO 03/21/17 04:00 04/20/17 03:59 Magnesium Hydroxide (Milk Of Magnesia Susp) 30 ml Q12H PRN PO 03/21/17 04:00 04/20/17 03:59 Ondansetron HCl (Zofran Inj) 4 mg Q6H PRN IV 03/21/17 04:00 04/20/17 03:59 Morphine Sulfate (MoRPHine SULFATE INJ) 2 mg Q30M PRN IV 03/21/17 04:00 04/04/17 03:59 Polyethylene (Miralax Powder Packet) 17 gm DAILY PRN PO 03/21/17 04:00 04/20/17 03:59 Albuterol/ Ipratropium (Duoneb) 3 ml Q6R INH 03/21/17 09:00 04/20/17 08:59 03/22/17 07:12 3 ML Levalbuterol (Xopenex 1.25MG/ 3ML Neb) 1.25 mg Q4R PRN INH 03/21/17 04:00 04/20/17 03:59 Doxycycline Hyclate 100 mg/ Dextrose 110 ml @ 50 mls/hr Q12H IV 03/21/17 09:00 03/28/17 08:59 03/22/17 07:53 50 MLS/HR Ioversol (Optiray 320) 100 ml UD PRN IV 03/21/17 06:00 03/25/17 05:59 Methylprednisolone Sodium Succinate 40 mg/Syringe 0.64 ml @ 1.5 mls/min Q6H IV 03/21/17 07:00 04/20/17 06:59 03/22/17 12:46 1.5 MLS/MIN Bumetanide 2 mg/ Syringe 8 ml @ 4 mls/min DAILY IV 03/23/17 09:00 04/20/17 16:59 Objective Vital Signs Date Time Temp Pulse Resp B/P (MAP) Pulse Ox O2 Delivery O2 Flow Rate FiO2 03/22/17 12:00 Nasal Cannula 3.0 03/22/17 11:59 36.7 92 16 67/44 (52) 95 Nasal Cannula 03/22/17 09:21 88 Room Air 03/22/17 08:00 Nasal Cannula 3.0 03/22/17 07:46 36.5 90 16 74/50 (58) 94 03/22/17 07:12 95 16 93 Nasal Cannula 3.0 03/22/17 04:00 90 Nasal Cannula 3.0 03/22/17 03:25 37.0 98 16 79/57 (64) 90 3.0 03/22/17 01:35 103 16 95 Nasal Cannula 3.0 03/22/17 00:25 93 Nasal Cannula 3.0 03/21/17 23:58 36.9 90 16 78/55 (63) 93 03/21/17 20:03 36.4 91 18 76/57 (63) 93 Nasal Cannula 3.0 83/54 (64) 03/21/17 20:00 93 3.0 03/21/17 19:07 58 16 93 Nasal Cannula 3.0 03/21/17 16:00 97 Nasal Cannula 4.0 03/21/17 15:49 92 16 94 Nasal Cannula 3.0 03/21/17 15:31 36.5 94 20 78/52 (61) 99 Nasal Cannula 3.0 Physical Exam General Appearance: WD/WN, no apparent distress Eyes: normal inspection, EOMI, sclerae normal ENT: normal ENT inspection, hearing grossly normal, pharynx normal Neck: supple, no adenopathy, no JVD, trachea midline Respiratory/Chest: chest non-tender, lungs clear, normal breath sounds, no respiratory distress, no accessory muscle use Cardiovascular: regular rate, rhythm, no gallop, no JVD, no murmur, + pertinent finding (cool hands, weak pulses) Abdomen: normal bowel sounds, non tender, soft, no organomegaly Extremities: normal range of motion, non-tender, normal inspection, no calf tenderness, pelvis stable, + pedal edema (left foot, +1, pitting) Neurologic/Psychiatric: environmental air specialist II-XII nml as tested, no motor/sensory deficits, alert, normal mood/affect, oriented x 3 Skin: normal color, warm/dry, no rash Lymphatic: no adenopathy Laboratory Results Last 24 Hours Test 03/21/17 18:34 03/22/17 09:42 Potassium Level 4.0 mmol/L 3.6 mmol/L White Blood Count 16.32 K/uL Red Blood Count 3.72 M/uL Hemoglobin 12.0 g/dL Hematocrit 38.7 % Mean Corpuscular Volume 104.0 fL Mean Corpuscular Hemoglobin 32.3 pg Mean Corpuscular Hemoglobin Concent 31.0 g/dl Platelet Count 320 K/uL Mean Platelet Volume 10.9 fL Neutrophils (%) (Auto) 94.4 % Lymphocytes (%) (Auto) 3.4 % Monocytes (%) (Auto) 1.9 % Eosinophils (%) (Auto) 0.0 % Basophils (%) (Auto) 0.0 % Neutrophils # (Auto) 15.41 K/uL Lymphocytes # (Auto) 0.55 K/uL Monocytes # (Auto) 0.31 K/uL Eosinophils # (Auto) 0.00 K/uL Basophils # (Auto) 0.00 K/uL RDW Standard Deviation 53.9 fL RDW Coefficient of Variation 14.1 % Immature Granulocyte % (Auto) 0.3 % Immature Granulocyte # (Auto) 0.05 K/uL Sodium Level 138 mmol/L Chloride Level 98 mmol/L Carbon Dioxide Level 29 mmol/L Anion Gap 12.0 mmol/L Blood Urea Nitrogen 25 mg/dl Creatinine 1.54 mg/dl Est Creatinine Clear Calc Drug Dose 25.0 ml/min Estimated GFR () 35.8 Estimated GFR (Non- 30.9 BUN/Creatinine Ratio 16.5 Random Glucose 215 mg/dl Lactic Acid Level 3.6 mmol/L Calcium Level 8.5 mg/dl Assessment and Plan 81 y/o F Hx CAD, HTN, HLD, COPD, chronic diastolic CHF - developed acute SOB early AM. Initially exhibited moderate respiratory distress on arrival to the ER. She markedly improved with Bipap alone. Diuresis was not provided as she was borderline hypotensive. Despite this she was able to transition to a nasal canula gradually and is breathing comfortably at the time of evaluation for admission. The pt denies any CP, N/V, fevers or rigors. Her BP continues to fluctuate with a systolic pressure mid 80s to mid 90s. A CT chest was obtained. There is no reported vascular congestion or infiltrates. 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 - Acute diastolic HF: nearly resolved, diuresed over 2 liters, breathing better , lungs clear, still with some peripheral edema and DURANT continue Bumex IV daily today follow I/Os and weights appreciate cardiology recommendations check BMP in the morning - Acute hypoxic respiratory failure: due to heart failure no wheezing, lungs are clear no signs of pneumonia or PE try to wean as tolerated as she is diuresed - AAA: slightly larger than prior, manage with medications, follow up outpatient - Severe atherosclerosis: bilateral subclavian stenosis, causes BP to be lower in arms - CKD stage III: stable - RUL mass: 1.1cm, spiculated, needs close pulmonary follow up keep on tele today
--- NOTE | 2017-03-22 14:35 | ECHOCARDIOGRAM REPORT ---
*NOTICE TO RECEIVING REPUBLICAN AGENCY This information is strictly Confidential and protected under [place] law. [place] law prohibits you from making any further disclosure of this information unless further disclosure is expressly permitted by the written consent of the person to whom it pertains or is authorized by law. A general authorization for the release of medical or other information is not sufficient for this purpose. Hospital accepts no responsibility if the information is made available to any other person, INCLUDING THE PATIENT. Interpretation Summary * Name: OTILIO ORNELAS Study Date: 03/21/2017 12:44 PM BP: 88/66 mmHg * Patient Location: C.2T\S\S239\S\2 HR: 81 * : 1935 (M/d/yyyy) Gender: Female Height: 62 in * Age: 81 yrs Ethnicity: CA Weight: 147 lb * Ordering Physician: Michael Akers * Referring Physician: Self, Referred * Performed By: Yun Saha RDCS * * Reason For Study: CHF, aortic stenosis * BSA: 1.7 m2 * -- Conclusions -- * Left ventricular systolic function is normal. * Akinesis of the proximal inferior wall. * Mild concentric left ventricular hypertrophy. * Ejection Fraction = 50-55%. * Moderate valvular aortic stenosis. * Mild aortic regurgitation. * There is mild to moderate mitral regurgitation. Procedure Details * A complete two-dimensional transthoracic echocardiogram was performed (2D, M-mode, Doppler and color flow Doppler). Left Ventricle * The left ventricle is normal in size. * Ejection Fraction = 50-55%. * Left ventricular systolic function is normal. * Akinesis of the proximal inferior wall. Right Ventricle * The right ventricle is grossly normal size. * The right ventricular systolic function is normal as assessed by tricuspid annular plane systolic excursion (TAPSE) (normal >1.5 cm). Atria * The left atrium is mildly dilated. * Right atrium not well visualized. * There is no evidence of atrial septal defect, but resolution does not allow assessment for a patent foramen ovale. Mitral Valve * The mitral valve is not well visualized. * There is moderate to severe mitral annular calcification. * No significant mitral valve stenosis. * There is mild to moderate mitral regurgitation. Tricuspid Valve * The tricuspid valve is not well visualized, but is grossly normal. * There is no tricuspid stenosis. * Significant tricuspid regurgitation is absent. Aortic Valve * The aortic valve is not well visualized. * Moderate valvular aortic stenosis. * Mild aortic regurgitation. Pulmonic Valve * The pulmonary valve is not well seen, but the Doppler examination is normal without significant regurgitation or stenosis. Great Vessels * The aortic root is normal size. * The pulmonary is not well visualized. Pericardium/Pleural * There is no pericardial effusion. Great Vessels * IVC not well visualized. MMode 2D Measurements and Calculations IVSd 1.0 cm LVIDd 5.7 cm LVIDs 4.3 cm LVPWd 1.2 cm IVS/LVPW 0.87 FS 24.1 % EDV(Teich) 158.3 ml ESV(Teich) 83.2 ml EF(Teich) 47.4 % EDV(cubed) 182.5 ml ESV(cubed) 79.7 ml EF(cubed) 56.4 % LV mass(C)d 256.3 grams LV mass(C)dI 152.8 grams/m\S\2 SV(Teich) 75.1 ml SI(Teich) 44.8 ml/m\S\2 SV(cubed) 102.9 ml SI(cubed) 61.3 ml/m\S\2 Ao root diam 2.7 cm Ao root area 5.8 cm\S\2 LA dimension 3.3 cm asc Aorta Diam 3.5 cm LA/Ao 1.2 LVOT diam 1.9 cm LVOT area 2.9 cm\S\2 LVAd ap4 24.2 cm\S\2 LVLd ap4 7.4 cm EDV(MOD-sp4) 62.9 ml EDV(sp4-el) 66.6 ml LVAs ap4 16.6 cm\S\2 LVLs ap4 6.8 cm ESV(MOD-sp4) 33.4 ml ESV(sp4-el) 34.3 ml EF(MOD-sp4) 46.9 % EF(sp4-el) 48.5 % LVAd ap2 27.1 cm\S\2 LVLd ap2 7.5 cm EDV(MOD-sp2) 78.9 ml EDV(sp2-el) 82.4 ml LVAs ap2 19.2 cm\S\2 LVLs ap2 6.9 cm ESV(MOD-sp2) 43.1 ml ESV(sp2-el) 45.1 ml EF(MOD-sp2) 45.3 % EF(sp2-el) 45.3 % LVLd %diff 1.4 % EDV(MOD-bp) 71.8 ml LVLs %diff 2.1 % ESV(MOD-bp) 38.5 ml EF(MOD-bp) 46.3 % SV(MOD-sp4) 29.5 ml SI(MOD-sp4) 17.6 ml/m\S\2 SV(MOD-sp2) 35.8 ml SI(MOD-sp2) 21.3 ml/m\S\2 SV(MOD-bp) 33.2 ml SI(MOD-bp) 19.8 ml/m\S\2 SV(sp4-el) 32.3 ml SI(sp4-el) 19.3 ml/m\S\2 SV(sp2-el) 37.3 ml SI(sp2-el) 22.2 ml/m\S\2 Doppler Measurements and Calculations MV E max jessy 154.2 cm/sec MV A max jessy 153.0 cm/sec MV E/A 1.0 MV V2 max 184.6 cm/sec MV max PG 13.6 mmHg MV V2 mean 107.2 cm/sec MV mean PG 5.4 mmHg MV V2 VTI 34.0 cm MV dec time 0.18 sec Ao V2 max 262.9 cm/sec Ao max PG 27.9 mmHg Ao max PG (full) 26.3 mmHg Ao V2 mean 185.4 cm/sec Ao mean PG 15.7 mmHg Ao V2 VTI 53.2 cm CLINT(V,A) 0.68 cm\S\2 CLINT(V,D) 0.68 cm\S\2 AI max jessy 395.0 cm/sec AI max PG 62.4 mmHg AI dec slope 410.0 cm/sec\S\2 AI P1/2t 282.2 msec LV V1 max PG 1.5 mmHg LV V1 max 61.8 cm/sec MR max jessy 594.4 cm/sec MR max PG 141.3 mmHg MR mean jessy 451.2 cm/sec MR mean PG 92.7 mmHg MR VTI 192.3 cm SV(Ao) 309.7 ml SI(Ao) 184.7 ml/m\S\2 PA V2 max 92.3 cm/sec PA max PG 3.4 mmHg PA acc slope 433.0 cm/sec\S\2 PA acc time 0.10 sec PA pr(Accel) 34.6 mmHg
[2017-03-22] MEDS: ATORVASTATIN 40 MG TAB PO SCH (20:20)
[2017-03-22] MEDS: CHOLECALCIFEROL 1000 INTER.UNIT TAB PO SCH (20:21)
[2017-03-23] VITALS (13 sets, daily range): BP systolic 65–135; BP diastolic 40–113; PULSE 40–115; TEMP 36.5–36.8; O2SAT 93–98
[2017-03-23] MEDS: METHYLPREDNISOLONE IV 40 MG in SYRINGE 0 ML IV SCH ×2 (01:59→07:19)
[2017-03-23] MEDS: ALBUT/IPRATROP 3MG/0.5MG NEB 3 ML VIAL INH SCH ×2 (02:39→07:26)
[2017-03-23] MEDS: LEVOTHYROXINE 150 MCG TAB PO SCH (05:27)
[2017-03-23] MEDS: BUMETANIDE IV 2 MG in SYRINGE 0 ML IV SCH ×2 (08:38→08:51)
[2017-03-23] MEDS: CLOPIDOGREL BISULFATE 75 MG TAB PO SCH (08:38)
[2017-03-23] MEDS: AMIODARONE 200 MG TAB PO SCH (08:39)
[2017-03-23] MEDS: ASPIRIN 81 MG ECTAB PO SCH (08:39)
[2017-03-23] MEDS: GABAPENTIN 300 MG CAP PO SCH ×3 (08:39→19:46)
[2017-03-23] MEDS: CYANOCOBALAMIN 500 MCG TAB (VIT B-12) PO SCH (08:39)
[2017-03-23] MEDS: CARVEDILOL 3.125 MG TAB PO SCH ×2 (08:39→19:46)
[2017-03-23] MEDS: POTASSIUM CHLORIDE 20 MEQ TABCR PO SCH (08:40)
[2017-03-23] MEDS: DOXYCYCLINE IV 100 MG in DEXTROSE 5% 100ML 100 ML IV SCH (08:44)
--- NOTE | 2017-03-23 09:01 | Cardiology Follow-Up ---
Subjective General Date of Service: Mar 23, 2017. Pt evaluation today including: conversation w/ patient, chart review, lab review, review of studies History of Present Illness The patient is a 81 year old female Allergies Coded Allergies: Ramipril (Verified Allergy, Unknown, Cough, 03/17/17) Social History Smoking Status: Former Smoker Hx Tobacco Use In Past Year?: No Hx Alcohol Use - Type And Amou: No Hx Substance Use - Type And Am: No Problem List Medical Problems: (1) CHF (congestive heart failure) Status: Chronic (2) Congestive heart failure Status: Acute (3) Dehydration Status: Acute (4) Dyspnea Status: Acute (5) Epistaxis Status: Acute (6) Hypotension Status: Acute (7) Lactic acidosis Status: Acute (8) Pneumonia Status: Acute (9) Pulmonary edema Status: Acute (10) Sepsis Status: Acute (11) Stroke Status: Acute Review of Systems Respiratory: + shortness of breath, + dyspnea on exertion, + dyspnea at rest, No cough Cardiac: No chest pain, No edema, No palpitations Physical Exam Vital Signs Last Vital Signs Documentation Date Time Temp Pulse Resp B/P (MAP) Pulse Ox O2 Delivery O2 Flow Rate FiO2 03/23/17 07:42 36.8 82 20 65/44 (51) 98 4.0 89/64 (72) 03/23/17 07:26 Nasal Cannula 03/21/17 02:15 50 Physical Exam Constitutional: General Apperance: heathly-appearing Level of Distress: NAD Psychiatric: Mental Status: active & alert Eyes: EOM: EOMI Lungs: Respiratory effort: no dyspnea, good air movement Auscultation: no wheezing, no rales/crackles, no rhonchi, decreased breath sounds (globally) Cardiovascular: Heart Auscultation: RRR, no rubs, no gallops, III/ TINO (radiating out towards both carotids) Peripheral Pulses: Bruits: none appreciated Abdomen: Bowel Sounds: normal Inspection & Palpation: soft, no tenderness, guarding & rebound, no masses Extremities: edema (trace to mild b/l) Assessment and Plan Assessment and Plan CTA: 1. Mild increase in size of the thoracoabdominal aortic aneurysm since abdominal CT of July 02, 2016. Distal descending thoracic aortic aneurysm measures 6.5 x 5.1 cm. No evidence for rupture. No intramural hematoma. No thoracic aortic dissection. No pulmonary emboli. 2. Small left pleural effusion. 3. Findings suggestive of mild pulmonary edema. 4. 9 mm irregular right upper lobe opacity and an adjacent 6 mm nodular density. These two findings are indeterminate and a follow-up chest CT in 6 months is recommended. 5. Moderate emphysema. 6. 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 Extensive atherosclerotic plaque within these vessels makes evaluation difficult. IMPRESSION: 1A. Acute on chronic systolic and diastolic CHF 1. Hx of Paroxysmal atrial fibrillation maintaining NSR with Amio and BB 2. History of ischemic cardiomyopathy, systolic function improved. 3. Peripheral hypotension,--Arm pressure is 50 mm/hg less than central aortic pressure 4. Vasculopath-- see CTA this admit 5. Mitral and aortic valvular disease previously moderate 6. Hx of Partial small bowel obstruction 7. Thoracoabdominal aortic aneurysm (6.7 x 5.3 cm), mild increase in size from --for medical Tx and treated conservatively. 8. Right carotid 100%; s/p left CEA 9. CAD with prior PCI to LAD and RCA Ambulate Weigh on standing scale--although weights are unchanged she remains negative with I/O's Add 50 mm/hg to Arm pressure to get an accurate blood pressure Change Bumex to PO with increased SHAKER REPAIRER Add Imdur to reduce preload and decrease potential coronary ischemia Medical TX for diffuse vascular disease ?? benefit from inhaler for COPD Laboratory Results Last 24 Hours Test 03/22/17 09:42 03/22/17 11:41 03/22/17 16:56 03/22/17 20:16 White Blood Count 16.32 K/uL Red Blood Count 3.72 M/uL Hemoglobin 12.0 g/dL Hematocrit 38.7 % Mean Corpuscular Volume 104.0 fL Mean Corpuscular Hemoglobin 32.3 pg Mean Corpuscular Hemoglobin Concent 31.0 g/dl Platelet Count 320 K/uL Mean Platelet Volume 10.9 fL Neutrophils (%) (Auto) 94.4 % Lymphocytes (%) (Auto) 3.4 % Monocytes (%) (Auto) 1.9 % Eosinophils (%) (Auto) 0.0 % Basophils (%) (Auto) 0.0 % Neutrophils # (Auto) 15.41 K/uL Lymphocytes # (Auto) 0.55 K/uL Monocytes # (Auto) 0.31 K/uL Eosinophils # (Auto) 0.00 K/uL Basophils # (Auto) 0.00 K/uL RDW Standard Deviation 53.9 fL RDW Coefficient of Variation 14.1 % Immature Granulocyte % (Auto) 0.3 % Immature Granulocyte # (Auto) 0.05 K/uL Sodium Level 138 mmol/L Potassium Level 3.6 mmol/L Chloride Level 98 mmol/L Carbon Dioxide Level 29 mmol/L Anion Gap 12.0 mmol/L Blood Urea Nitrogen 25 mg/dl Creatinine 1.54 mg/dl Est Creatinine Clear Calc Drug Dose 25.0 ml/min Estimated GFR () 35.8 Estimated GFR (Non- 30.9 BUN/Creatinine Ratio 16.5 Random Glucose 215 mg/dl Lactic Acid Level 3.6 mmol/L Calcium Level 8.5 mg/dl Bedside Glucose 143 mg/dl 145 mg/dl 201 mg/dl Test 03/23/17 06:50 Bedside Glucose 147 mg/dl
--- NOTE | 2017-03-23 10:25 | Medical Student: [facility] ---
Med Student Progress Note Date of Service Mar 23, 2017. Subjective Pt evaluation today including: conversation w/ patient, physical exam, chart review, lab review, review of studies Voiding: no voiding problems 81 y/o F with acute SOB with moderate respiratory distress in ED prior to admission Hx CAD, HTN, HLD, COPD, chronic CHF Feeling better today, one brief episode of SOB yesterday that resolved Walking down rodriguez today Still has DURANT but improved Denies CP, worsening SOB, abdominal pain, N/V/D, cough, wheezing Some ectopy on monitor overnight, NSR Review of Systems Constitutional: No fever, No chills Respiratory: + shortness of breath, + dyspnea on exertion, No cough, No wheezing Cardiac: No chest pain Abdomen: No pain, No nausea, No vomiting, No diarrhea Female : No dysuria Psychiatric: No depression symptoms Endo: No fatigue Skin: No rash Objective Vital Signs Date Time Temp Pulse Resp B/P (MAP) Pulse Ox O2 Delivery O2 Flow Rate FiO2 03/23/17 08:00 Nasal Cannula 3.0 03/23/17 07:42 36.8 82 20 65/44 (51) 98 4.0 89/64 (72) 03/23/17 07:26 82 16 98 Nasal Cannula 4.0 03/23/17 04:00 Nasal Cannula 3.0 03/23/17 03:46 36.8 93 19 72/56 (61) 95 Nasal Cannula 03/23/17 02:39 87 16 94 Nasal Cannula 3.0 03/22/17 23:59 Nasal Cannula 3.0 03/22/17 23:24 36.4 105 18 77/53 (61) 96 Nasal Cannula 03/22/17 20:00 Nasal Cannula 3.0 03/22/17 19:36 36.6 94 20 74/56 (62) 97 Nasal Cannula 3.0 81/52 (62) 03/22/17 19:00 54 16 95 Nasal Cannula 3.0 03/22/17 16:31 36.7 96 20 79/57 (64) 97 Nasal Cannula 3.0 03/22/17 16:10 Nasal Cannula 3.0 03/22/17 14:24 69 16 94 Nasal Cannula 3.0 03/22/17 12:00 Nasal Cannula 3.0 03/22/17 11:59 36.7 92 16 67/44 (52) 95 Nasal Cannula 03/22/17 10:25 98 Physical Exam Eyes: bilateral eyes EOMI ENT: hearing grossly normal Neck: supple Respiratory/Chest: no respiratory distress, no accessory muscle use, + wheezing (bilat, not improved after cough) Cardiovascular: regular rate, rhythm, no murmur Abdomen: non tender, soft Extremities: no calf tenderness Neurologic/Psychiatric: normal mood/affect, oriented x 3 Skin: warm/dry Laboratory Results Last 24 Hours Test 03/22/17 11:41 03/22/17 16:56 03/22/17 20:16 03/23/17 06:50 Bedside Glucose 143 mg/dl 145 mg/dl 201 mg/dl 147 mg/dl Medications Test 03/21/17 00:45 03/21/17 00:55 03/21/17 06:53 03/21/17 18:34 White Blood Count 9.12 Red Blood Count 3.86 Hemoglobin 12.8 Hematocrit 40.1 Mean Corpuscular Volume 103.9 Mean Corpuscular Hemoglobin 33.2 Mean Corpuscular Hemoglobin Concent 31.9 Platelet Count 285 Mean Platelet Volume 10.5 Neutrophils (%) (Auto) 76.6 Lymphocytes (%) (Auto) 16.6 Monocytes (%) (Auto) 5.2 Eosinophils (%) (Auto) 1.1 Basophils (%) (Auto) 0.2 Neutrophils # (Auto) 6.99 Lymphocytes # (Auto) 1.51 Monocytes # (Auto) 0.47 Eosinophils # (Auto) 0.10 Basophils # (Auto) 0.02 RDW Standard Deviation 53.3 RDW Coefficient of Variation 14.1 Immature Granulocyte % (Auto) 0.3 Immature Granulocyte # (Auto) 0.03 Prothrombin Time 10.2 Prothrombin Time INR 1.0 Sodium Level 135 Chloride Level 96 Carbon Dioxide Level 33 Anion Gap 6.0 Blood Urea Nitrogen 22 Creatinine 1.27 Est Creatinine Clear Calc Drug Dose 30.8 Estimated GFR () 45.2 Estimated GFR (Non- 39.0 BUN/Creatinine Ratio 17.2 Random Glucose 149 Calcium Level 8.2 Magnesium Level 2.1 Total Bilirubin 0.4 Aspartate Amino Transferase (AST) 18 Alanine Aminotransferase (ALT) 17 Alkaline Phosphatase 109 Troponin I < 0.015 0.021 Pro-B-Type Natriuretic Peptide 04744 Total Protein 6.4 Albumin 2.9 Globulin 3.5 Albumin/Globulin Ratio 0.8 Influenza Type A Antigen Neg for Influ A Influenza Type B Antigen Neg for Influ B Random Cortisol 18.17 Potassium Level 4.0 Test 03/22/17 09:42 03/22/17 20:16 03/23/17 06:50 White Blood Count 16.32 Red Blood Count 3.72 Hemoglobin 12.0 Hematocrit 38.7 Mean Corpuscular Volume 104.0 Mean Corpuscular Hemoglobin 32.3 Mean Corpuscular Hemoglobin Concent 31.0 Platelet Count 320 Mean Platelet Volume 10.9 Neutrophils (%) (Auto) 94.4 Lymphocytes (%) (Auto) 3.4 Monocytes (%) (Auto) 1.9 Eosinophils (%) (Auto) 0.0 Basophils (%) (Auto) 0.0 Neutrophils # (Auto) 15.41 Lymphocytes # (Auto) 0.55 Monocytes # (Auto) 0.31 Eosinophils # (Auto) 0.00 Basophils # (Auto) 0.00 RDW Standard Deviation 53.9 RDW Coefficient of Variation 14.1 Immature Granulocyte % (Auto) 0.3 Immature Granulocyte # (Auto) 0.05 Sodium Level 138 Potassium Level 3.6 Chloride Level 98 Carbon Dioxide Level 29 Anion Gap 12.0 Blood Urea Nitrogen 25 Creatinine 1.54 Est Creatinine Clear Calc Drug Dose 25.0 Estimated GFR () 35.8 Estimated GFR (Non- 30.9 BUN/Creatinine Ratio 16.5 Random Glucose 215 Lactic Acid Level 3.6 Calcium Level 8.5 POC Glucose 201 147 Echo results: * Left ventricular systolic function is normal. * Akinesis of the proximal inferior wall. * Mild concentric left ventricular hypertrophy. * Ejection Fraction = 50-55%. * Moderate valvular aortic stenosis. * Mild aortic regurgitation. * There is mild to moderate mitral regurgitation. Assessment and Plan Assessment and Plan: 81 y/o F with acute SOB and hx of CHF, COPD, HTN, atherosclerosis/peripheral hypotension 1. SOB -CHF vs COPD component -3L NC at home -98% on 4L this morning -Down 3.5L, diuresed, discontinue IV Bumex today and start PO with increased BAR ROLLER -WBC increase to 16.3 likely steroid demargination, afebrile -echo normal -monitor response to COPD meds, cards input. Spiriva and albuterol and methylprednisolone -wean O2 as tolerated, maintain saturation above 90% 2. HTN -BPs stable -Add 50 to SBP reading due to peripheral hypotension/severe atherosclerosis 3. AAA -Stable on CTA, no dissection 4. CKD stage 3 -Cr 1.5 up from 1.2 -monitor daily 5. RUL spiculated 1.1 cm mass -outpatient follow-up -patient is not aware yet 4. Disposition -transfer to med/surg 5. Full Code Continued [facility] stay due to: home environment unsafe for pt
[2017-03-23] MEDS: ISOSORBIDE MONONITRATE 30 MG TABCR PO SCH (10:26)
[2017-03-23] MEDS: BUMETANIDE 1 MG TAB PO SCH (10:27)
[2017-03-23] MEDS ORDERED: ALBUTEROL 0.083% NEBU SOLN 3 ML VIAL INH PRN (10:45)
[2017-03-23] MEDS ORDERED: KETOROLAC TROMETHAMINE 30 MG/ML VIAL ONE (10:56)
--- NOTE | 2017-03-23 14:16 | Progress Note ---
Subjective Date of Service: Mar 23, 2017. Subjective Pt evaluation today including: conversation w/ patient, physical exam, lab review, conversation w/ actuarial consultant, review of inpatient medication list Pain: no pain PO Intake: adequate Voiding: no voiding problems patient was feeling more short of breath this morning, got better with nebulizer asked her about COPD diagnosis? 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 Novak Problem List Medical Problems: (1) CHF (congestive heart failure) Status: Chronic (2) Congestive heart failure Status: Acute (3) Dehydration Status: Acute (4) Dyspnea Status: Acute (5) Epistaxis Status: Acute (6) Hypotension Status: Acute (7) Lactic acidosis Status: Acute (8) Pneumonia Status: Acute (9) Pulmonary edema Status: Acute (10) Sepsis Status: Acute (11) Stroke Status: Acute Review of Systems Constitutional: + weakness, + fatigue Respiratory: + cough, + wheezing, + shortness of breath Cardiac: + edema (left leg, improving) All Other Systems: Reviewed and Negative Medications Current Inpatient Medications Medications (Trade) Dose Ordered Sig/Nicko Route Start Time Stop Time Status Last Admin Dose Admin Amiodarone HCl (Cordarone Tab) 200 mg DAILY PO 03/21/17 09:00 04/20/17 08:59 03/23/17 08:39 200 MG Aspirin (Ecotrin Tab) 81 mg QAM PO 03/21/17 09:00 04/20/17 08:59 03/23/17 08:39 81 MG Atorvastatin Calcium (Lipitor Tab) 80 mg HS PO 03/21/17 21:00 04/20/17 20:59 03/22/17 20:20 80 MG Carvedilol (Coreg Tab) 3.125 mg BID PO 03/21/17 09:00 04/20/17 08:59 03/23/17 08:39 3.125 MG Clopidogrel Bisulfate (plAVix TAB) 75 mg QAM PO 03/21/17 09:00 04/20/17 08:59 03/23/17 08:38 75 MG Cyanocobalamin (Vitamin B-12 Tab) 1,000 mcg QAM PO 03/21/17 09:00 04/20/17 08:59 03/23/17 08:39 1,000 MCG Gabapentin (Neurontin Cap) 300 mg TID PO 03/21/17 09:00 04/20/17 08:59 03/23/17 08:39 300 MG Levothyroxine Sodium (Synthroid Tab) 150 mcg DAILYBB PO 03/21/17 06:00 04/20/17 05:59 03/23/17 05:27 150 MCG Tramadol HCl (Ultram Tab) 50 mg Q6H PRN PO 03/21/17 04:00 04/20/17 03:59 Trazodone HCl (Desyrel Tab) 25 mg HS PRN PO 03/21/17 04:00 04/20/17 03:59 Cholecalciferol (Vitamin D Tab) 2,000 inter.unit HS PO 03/21/17 21:00 04/20/17 20:59 03/22/17 20:21 2,000 INTER.UNIT Potassium Chloride (Klor-Con Tab) 20 meq DAILY PO 03/21/17 09:00 04/20/17 08:59 03/23/17 08:40 20 MEQ Acetaminophen (Tylenol Tab) 650 mg Q4H PRN PO 03/21/17 04:00 04/20/17 03:59 Al Hydrox/Mg Hydrox/Simethicone (Maalox Max Susp) 15 ml Q4H PRN PO 03/21/17 04:00 04/20/17 03:59 Magnesium Hydroxide (Milk Of Magnesia Susp) 30 ml Q12H PRN PO 03/21/17 04:00 04/20/17 03:59 Ondansetron HCl (Zofran Inj) 4 mg Q6H PRN IV 03/21/17 04:00 04/20/17 03:59 Morphine Sulfate (MoRPHine SULFATE INJ) 2 mg Q30M PRN IV 03/21/17 04:00 04/04/17 03:59 Polyethylene (Miralax Powder Packet) 17 gm DAILY PRN PO 03/21/17 04:00 04/20/17 03:59 Levalbuterol (Xopenex 1.25MG/ 3ML Neb) 1.25 mg Q4R PRN INH 03/21/17 04:00 04/20/17 03:59 Ioversol (Optiray 320) 100 ml UD PRN IV 03/21/17 06:00 03/25/17 05:59 Bumetanide (Bumex Tab) 2 mg QAM PO 03/23/17 09:15 04/22/17 09:14 03/23/17 10:27 2 MG Isosorbide Mononitrate (Imdur Ext Rel Tab) 30 mg QAM PO 03/23/17 09:15 04/22/17 09:14 03/23/17 10:26 30 MG Methylprednisolone Sodium Succinate 40 mg/Syringe 0.64 ml @ 1.5 mls/min Q12 IV 03/23/17 21:00 04/20/17 06:59 Tiotropium [place] (Spiriva Handihaler Inhaler) 1 puff QAM INH 03/24/17 08:00 04/23/17 08:59 Albuterol Sulfate (Ventolin 0.083% 2.5MG/3ML Neb) 2.5 mg Q6R PRN INH 03/23/17 10:45 04/22/17 10:44 Objective Vital Signs Date Time Temp Pulse Resp B/P (MAP) Pulse Ox O2 Delivery O2 Flow Rate FiO2 03/23/17 13:06 36.6 98 20 93 Nasal Cannula 5.0 03/23/17 12:32 36.5 40 18 98 3.0 03/23/17 11:40 40 67/51 (56) 03/23/17 11:25 36.5 84 18 135/113 (120) 98 3.0 03/23/17 08:00 Nasal Cannula 3.0 03/23/17 07:42 36.8 82 20 65/44 (51) 98 4.0 89/64 (72) 03/23/17 07:26 82 16 98 Nasal Cannula 4.0 03/23/17 04:00 Nasal Cannula 3.0 03/23/17 03:46 36.8 93 19 72/56 (61) 95 Nasal Cannula 03/23/17 02:39 87 16 94 Nasal Cannula 3.0 03/22/17 23:59 Nasal Cannula 3.0 03/22/17 23:24 36.4 105 18 77/53 (61) 96 Nasal Cannula 03/22/17 20:00 Nasal Cannula 3.0 03/22/17 19:36 36.6 94 20 74/56 (62) 97 Nasal Cannula 3.0 81/52 (62) 03/22/17 19:00 54 16 95 Nasal Cannula 3.0 03/22/17 16:31 36.7 96 20 79/57 (64) 97 Nasal Cannula 3.0 03/22/17 16:10 Nasal Cannula 3.0 03/22/17 14:24 69 16 94 Nasal Cannula 3.0 Physical Exam General Appearance: WD/WN, no apparent distress Eyes: normal inspection, EOMI, sclerae normal ENT: normal ENT inspection, hearing grossly normal, pharynx normal Neck: supple, no adenopathy, no JVD, trachea midline Respiratory/Chest: chest non-tender, lungs clear, no respiratory distress, no accessory muscle use, + decreased breath sounds (bilaterally) Cardiovascular: regular rate, rhythm, no gallop, no JVD, no murmur Abdomen: normal bowel sounds, non tender, soft, no organomegaly Extremities: normal range of motion, non-tender, normal inspection, no calf tenderness, pelvis stable, + pedal edema (left leg) Neurologic/Psychiatric: standpipe tender II-XII nml as tested, alert, normal mood/affect, oriented x 3, + motor weakness (generalized) Skin: normal color, warm/dry, no rash Laboratory Results Last 24 Hours Test 03/22/17 16:56 03/22/17 20:16 03/23/17 06:50 Bedside Glucose 145 mg/dl 201 mg/dl 147 mg/dl Assessment and Plan 81 y/o F Hx CAD, HTN, HLD, COPD, chronic diastolic CHF - developed acute SOB early AM. Initially exhibited moderate respiratory distress on arrival to the ER. She markedly improved with Bipap alone. Diuresis was not provided as she was borderline hypotensive. Despite this she was able to transition to a nasal canula gradually and is breathing comfortably at the time of evaluation for admission. The pt denies any CP, N/V, fevers or rigors. Her BP continues to fluctuate with a systolic pressure mid 80s to mid 90s. A CT chest was obtained. There is no reported vascular congestion or infiltrates. 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 - Acute diastolic HF: nearly resolved, diuresed 3.5 liters, breathing better, lungs clear, still with some DURANT changed back to Bumex 2mg PO daily per cardiology, continue on discharge appreciate cardiology recommendations check BMP in the morning - Acute hypoxic respiratory failure: due to heart failure, possible COPD exacerbation? no wheezing, lungs are clear on my exam, but wheezing reported earlier and improved with nebulizer has h/o COPD check 2 step tomorrow, on 2 liters typically, make sure she doesn't need more on exertion - COPD: cannot find PFT in records to determine severity has 50 pack year history will start on Spiriva daily, albuterol nebulizers should have follow up with PCP, set up PFT once breathing stable, refer to pulmonology? - AAA: slightly larger than prior, manage with medications, follow up outpatient - Severe atherosclerosis: bilateral subclavian stenosis, causes BP to be lower in arms - CKD stage III: stable - RUL density: 9mm, spiculated, needs repeat CT in 3 months transfer to medical floor from the [place], check PT/OT notes to make sure she is strong enough to return, check 2 step reasonable to try to discharge tomorrow, heart failure is resolved would d/c on Bumex 2mg daily new med is Spiriva, needs albuterol as well Continued [facility] stay due to: home environment unsafe for pt
[2017-03-23] MEDS ORDERED: METHYLPREDNISOLONE IV 40 MG in SYRINGE 0 ML IV SCH (21:00)
[2017-03-23] MEDS: ATORVASTATIN 40 MG TAB PO SCH (21:15)
[2017-03-23] MEDS: CHOLECALCIFEROL 1000 INTER.UNIT TAB PO SCH (21:15)
[2017-03-24 00:20] VITALS: O2SAT 95
[2017-03-24] MEDS: LEVOTHYROXINE 150 MCG TAB PO SCH (06:19)
[2017-03-24 06:57] LABS: HEMATOCRIT 39.1 % (37-47); HEMOGLOBIN 12.1 g/dL (12.0-16.0); IG# 0.04 K/uL (0.00-0.02); LYMPH % 3.5 %; LYMPH ABS # 0.44 K/uL (1.2-3.4); MEAN CORPUSCULAR HEMOGLOBIN 32.2 pg (25-34); MEAN CORPUSCULAR HGB CONC 30.9 g/dl (32-36); MEAN PLATELET VOLUME 10.9 fL (7.4-10.4); MONO ABS # 0.25 K/uL (0.11-0.59); NEUT % 94.2 %; NEUT ABS # 11.95 K/uL (1.4-6.5); PLATELET COUNT 310 K/uL (130-400); RED CELL DISTRIBUTION WIDTH CV 14.3 % (11.5-14.5); RED CELL DISTRIBUTION WIDTH SD 54.5 fL (36.4-46.3); WHITE BLOOD COUNT 12.68 K/uL (4.8-10.8)
[2017-03-24 07:13] VITALS: BP 79/52; PULSE 76; TEMP 36.5; O2SAT 97
[2017-03-24] MEDS: ISOSORBIDE MONONITRATE 30 MG TABCR PO SCH (07:28)
[2017-03-24] MEDS: CLOPIDOGREL BISULFATE 75 MG TAB PO SCH (07:28)
[2017-03-24] MEDS: CYANOCOBALAMIN 500 MCG TAB (VIT B-12) PO SCH (07:28)
[2017-03-24] MEDS: CARVEDILOL 3.125 MG TAB PO SCH (07:28)
[2017-03-24] MEDS: BUMETANIDE 1 MG TAB PO SCH (07:28)
[2017-03-24] MEDS: POTASSIUM CHLORIDE 20 MEQ TABCR PO SCH (07:29)
[2017-03-24] MEDS: GABAPENTIN 300 MG CAP PO SCH ×2 (07:30→13:24)
[2017-03-24] MEDS: AMIODARONE 200 MG TAB PO SCH (07:30)
[2017-03-24] MEDS: ASPIRIN 81 MG ECTAB PO SCH (07:32)
[2017-03-24 07:35] LABS: CALCIUM 8.1 mg/dl (8.5-10.1); CREATININE 1.3 mg/dl (0.60-1.20); POTASSIUM 4.2 mmol/L (3.5-5.1)
[2017-03-24] MEDS ORDERED: TIOTROPIUM BROMIDE 5 PUFF/90 MCG INH INH SCH (08:00)
[2017-03-24 15:12] VITALS: BP 64/40; PULSE 81; TEMP 36.5; O2SAT 90
[2017-03-24 15:49] VITALS: BP 64/40; PULSE 81; TEMP 36.5; O2SAT 90
[2017-03-24] MEDS ORDERED: SPRIN INH (15:51)
[2017-03-24] MEDS ORDERED: PRED10TA PO (15:51)
[2017-03-24] MEDS ORDERED: ALBINS INH (15:51)
[2017-03-24] MEDS ORDERED: IMDSR30 PO (15:51)
[2017-03-24] MEDS ORDERED: NEBMAC (15:51)
[2017-03-24] MEDS ORDERED: TRAM-10 PO (15:51)
--- NOTE | 2017-03-24 16:03 | Discharge Instructions ---
Discharge Instructions Date of Service Mar 24, 2017. Admission Reason for Admission: Shortness of breath Discharge Discharge Diagnosis / Problem: Shortness of breath - likely combo of Congestive Heart Failure & Bronchitis Discharge Goals Goal(s): Learn about illness, Diagnostic testing, Therapeutic intervention Activity Recommendations Activity Limitations: resume your previous activity . Instructions / Follow-Up Instructions / Follow-Up From Dr. Farris: 1. Congestive Heart Failure Instructions: Call your Primary Care doctor or Dr. Novak if any of the following symptoms or problems start or get worse: * Shortness of breath or difficulty breathing * Wake up at night short of breath * Chest pain * Cough * Swelling of your hands, feet, or legs * More fatigued or tired with your normal activity * Palpitations - sudden fast heart beats WEIGHT * Weigh yourself every morning after using the bathroom. * Use the same scale. * Wear the same amount of clothing. * Write your weight down on a chart. * Call your Primary Care doctor or your product support rep, Dr. Novak, if you gain more than 2-3 pounds in 1-2 days. MEDICATIONS * Use this discharge instruction sheet for medication instructions. * Take your medications at the time your doctor ordered. * Do not skip a dose of your medicines. * If you miss a dose of medicine, take it as soon as possible, but DO NOT DOUBLE A DOSE. * Read your medicine information when you get home. * Know all of the side effects of your medicine. If in doubt, ask your pharmacist * Call your Primary Care doctor's office if you have any side effects. * Be sure all of your doctors know what medicine and herbs you take (including cold, flu, and herbal medicine). Take the following with you to your follow-up doctor appointments: * Weight Chart * Medication List * List of questions Do not drink excessive alcohol, beer or wine. 2. For your bronchitis / possible "COPD" - * take a prednisone course; start this TOMORROW on 03/25/17 * take spiriva 1 puff once daily every day * use albuterol nebs, 1 neb treatment every 4 hours as needed for cough, wheezing, or shortness of breath * you will need to purchase the neb machine from a Medical Supply Store such as [employer] on the [address] in [place] * the albuterol neb treatments themselves - you can get this filled from your local pharmacy * ask Dr. Lange for a referral to a chief of surgery ( lung specialist ) to have further testing to determine if in fact you have COPD (emphysema) 3. Congestive heart failure / blood pressure - * STOP your amlodipine * START imdur (long-acting nitroglycerin tablet) 30mg once daily every day * as stated in the instructions above - check your weight EVERY DAY on a scale and if you gain more than 2-3 pounds in 1-[address] Novak or Dr. Lange know right away 4. Right lung nodules - * there were 2 tiny nodules in the right upper lobe * one was 9mm * the other was 6mm * you will need a repeat CAT scan of the lungs in about 3 months * Dr. Lange or a lung specialist can order this CAT scan 5. Aortic aneurysm - * please follow-up with your vascular surgeon for this issue 6. Return to [facility] if - * you have fever over 100.5 degrees * you develop worsening cough, worsening shortness of breath, or chest pain * any other concerns 7. Follow-up appointments - * see Dr. Lange within 5 days * see Dr. Novak within 1-2 weeks * please request a pulmonary referral within the next 3-4 weeks for possible COPD and the lung nodules Current Hospital Diet Patient's current hospital diet: AHA Diet (Heart Healthy) Discharge Diet Recommended Diet: AHA Diet (Heart Healthy) Fluid Restriction: 1500 ml (6 cups) Procedures Procedures Performed: 1. echocardiogram showing diastolic congestive heart failure and moderate aortic stenosis (calcified aortic valve, or "narrowing" of the valve) 2. CAT scan of the lungs showing a thoracic aortic aneurysm - 6.5cm x 5.1cm in size 3. 9mm right upper lobe lung nodule and a 6mm right upper lobe lung nodule - repeat CAT scan recommended in 3 months Pending Studies Studies pending at discharge: no Medical Emergencies . Who to Call and When: Call 911 or go to the Emergency Room if: * If at any time you feel your situation is an emergency * You have tightness or pain in your chest that does not go away with rest or Nitroglycerin * You are very short of breath even with rest . Non-Emergent Contact Non-Emergency issues call your: Primary Care Provider, [facility] Call Non-Emergent contact if: temperature is above 100.5, you have any medication questions . . "Provider Documentation" section prepared by Isauro Farris. . VTE Core Measure Inpt VTE Proph given/why not?: Unfractionated heparin SQ
--- NOTE | 2017-03-24 23:19 | Discharge Summary ---
Discharge Summary Date of Service Mar 24, 2017. Discharge Summary Admission Date: Mar 21, 2017 at 03:53 Discharge Date: Mar 24, 2017 Discharge Disposition: Personal care (Debbie Elsie) Principal Diagnosis: acute hypoxic respiratory failure Problems/Secondary Diagnoses: 1) acute/chronic diastolic CHF 2) AAA 3) CAD 4) Carotid stenosis 5) COPD with exacerbation 6) history of TIA 7) subclavian artery stenosis bilaterally 8) Hypothyroidism 9) HTN 10) hyperlipidemia 11) Pulmonary hypertension 12) Subclavian steal syndrome 13) CKD stage 3-4 14) moderate 15) RUL lung nodule(s) - 3 month follow-up CT is advised Immunizations: Have You Had Influenza Vaccine: Yes Influenza Vaccine Date: Jan 12, 2013 History of Tetanus Vaccine?: Unknown History of Pneumococcal: Yes History of Hepatitis B Vaccine: Unknown Procedures: 1. CT chest, noncontrast: IMPRESSION: 1. Mild increase in size of the thoracoabdominal aortic aneurysm since abdominal CT of July 02, 2016. Distal descending thoracic aortic aneurysm measures 6.5 x 5.1 cm. No evidence for rupture. No intramural hematoma. 2. Small left pleural effusion. 3. Findings suggestive of mild pulmonary edema. 4. 9 mm irregular right upper lobe opacity and an adjacent 6 mm nodular density. These two findings are indeterminate and a follow-up chest CT in 3 months is recommended. 5. Moderate emphysema. 2. CTA dissection protocol - IMPRESSION: 1. Mild increase in size of the thoracoabdominal aortic aneurysm since abdominal CT of July 02, 2016. Distal descending thoracic aortic aneurysm measures 6.5 x 5.1 cm. No evidence for rupture. No intramural hematoma. No abdominal aortic dissection. 2. 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 Marked right renal atrophy. 3. CTA chest - IMPRESSION: 1. Mild increase in size of the thoracoabdominal aortic aneurysm since abdominal CT of July 02, 2016. Distal descending thoracic aortic aneurysm measures 6.5 x 5.1 cm. No evidence for rupture. No intramural hematoma. No thoracic aortic dissection. No pulmonary emboli. 2. Small left pleural effusion. 3. Findings suggestive of mild pulmonary edema. 4. 9 mm irregular right upper lobe opacity and an adjacent 6 mm nodular density. These two findings are indeterminate and a follow-up chest CT in 6 months is recommended. 5. Moderate emphysema. 6. 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 Extensive atherosclerotic plaque within these vessels makes evaluation difficult. 4. echocardiogram - * -- Conclusions -- * Left ventricular systolic function is normal. * Akinesis of the proximal inferior wall. * Mild concentric left ventricular hypertrophy. * Ejection Fraction = 50-55%. * Moderate valvular aortic stenosis. * Mild aortic regurgitation. * There is mild to moderate mitral regurgitation. Consultations: cardiology - Rehan Novak, DO PT, OT Medication Reconciliation New Medications: Nebulizer Machine (Home Use) (Nebulizer Machine (Home Use) ) Mis EA N/A UD, #1 dx - wheezing Prednisone (Prednisone) 10 Mg Tab 10 MG PO DIRECTED, #16 TAB 0 Refills start 03/25: take 4 tabs day 1, 3 tabs days 2/3, 2 tabs days 4/5, 1 tab days 6/7. Albuterol Sulf (Albuterol Sulfate) 2.5 Mg/3 Ml Nebu 2.5 MG INH Q4H PRN for cough/wheezing, #1 BOX 2 Refills diagnosis - wheezing Isosorbide Mononitrate (Isosorbide Mononitrate ER) 30 Mg Tabcr 30 MG PO QAM, #30 TAB 11 Refills Tiotropium [place] (Spiriva Handihaler) 5 Puff/90 Mcg Aerp 1 PUFF INH QAM for 30 Days, #1 INHALER 11 Refills Continued Medications: Acetaminophen (Tylenol) 500 Mg Tab 1000 MG PO QAM MAX APAP =3GM/24HRS Acetaminophen (Tylenol) 500 Mg Tab 500 MG PO QPM, TAB MAX APAP = 3GM/24HRS Acetaminophen (Tylenol) 500 Mg Tab 1000 MG PO Q6H PRN for Pain, TAB MAX APAP = 3GM/24HRS Amiodarone Hcl (Cordarone) 200 Mg Tab 200 MG PO DAILY, TAB Aspirin (Aspirin Ec) 81 Mg Tab 1 TAB PO QAM Atorvastatin (Lipitor) 80 Mg Tab 80 MG PO HS, TAB Bumetanide (Bumex) 2 Mg Tab 2 MG PO DAILY, TAB Carvedilol (Coreg) 3.125 Mg Tab 3.125 MG PO BID Cholecalciferol (Vitamin D3) 2,000 Unit Cap 2000 UNITS PO HS Clopidogrel (Plavix) 75 Mg Tab 75 MG PO QAM, TAB Cyanocobalamin (Vitamin B-12) 1,000 Mcg Tab 1000 MCG PO QAM Gabapentin (Neurontin) 300 Mg Cap 300 MG PO TID, CAP Levothyroxine Sodium (Levothyroxine Sodium) 150 Mcg Tab 150 MCG PO DAILY, TAB Nitroglycerin (Nitrostat) 0.4 Mg Tab 0.4 MG UT PRN PRN for Chest Pain, BTL Oxymetazoline Hcl (Afrin 0.05% Nasal [place]) 1 Btl [place] 2 SPRAYS DONA Q4H PRN for NOSE BLEEDS, BTL Potassium Chloride (K-Tab) 20 Meq Tab 20 MEQ PO DAILY Spironolactone (Aldactone) 25 Mg Tab 25 MG PO QAM Tramadol (Ultram) 50 Mg Tab 50-100 MG PO Q6H PRN for Pain, #30 TAB 0 Refills (This prescription has been renewed) Trazodone Hcl (Trazodone) 50 Mg Tab 25 MG PO HS PRN for Sleep Discontinued Medications: Amlodipine Besylate (Norvasc) 2.5 Mg Tab 2.5 MG PO QAM Discharge Exam Physical Exam: General Appearance: no apparent distress ENT: pharynx normal Neck: no JVD Respiratory/Chest: lungs clear, no respiratory distress, no accessory muscle use, + decreased breath sounds (bases) Cardiovascular: regular rate, rhythm, no gallop, + systolic murmur (2/6 RUSB ), + abnormal peripheral pulses (radial pulses decreased, DP/pos tib pulses of feet decreased) Abdomen / GI: normal bowel sounds, non tender, soft, no organomegaly Extremities: + pedal edema (trace on left ) Neurologic/Psychiatric: alert, oriented x 3 Hospital Course HISTORY OF PRESENT ILLNESS: 81yo female with history of CAD, HTN, COPD, chronic diastolic CHF, AAA and PAD who presented after developing acute SOB early on the AM of admission. She initially exhibited moderate respiratory distress on arrival to the ER. She markedly improved with BIPAP alone. Diuresis was not provided as she was borderline hypotensive. Despite this she was able to transition to a nasal canula gradually and was breathing comfortably at the time of evaluation for admission. The patient denied any chest pain, nausea or emesis, fevers or rigors. HOSPITAL COURSE: The patient's acute hypoxic respiratory failure was felt to be from a combination of acute/chronic diastolic CHF as well as mild COPD exacerbation. She was treated with BIPAP, NC O2, steroids, nebs, and diuresis. With these measures all pulmonary symptoms improved/resolved. She never had radiographic evidence of pneumonia. She was seen in consult by cardiology, Dr. Rehan Novak, who recommended substitution of imdur for norvasc. It was advised she remain on bumex and aldactone at discharge for her chronic diastolic CHF. Although the patient's hospital EMR suggests a diagnosis of COPD the patient herself denied a formal diagnosis of COPD in the past. She was initiated on once daily spiriva for suspected COPD and asked to use albuterol nebs on a PRN basis at home. She will complete a short prednisone taper after discharge as well. Pulmonary consultation after discharge may be beneficial to establish a diagnosis of COPD and guide ongoing proper treatment. Imaging of the chest showed 2 tiny nodules in the right upper lobe - a 9mm nodule as well as a 6mm nodule. Given her extensive smoking history a follow-up [address] scan was advised. The patient was noted to have severely low blood pressures in both arms during her stay. Imaging demonstrated bilateral subclavian artery stenosis likely leading to these low values. Despite the low BPs her renal function was intact and she made adequate urine during her stay. Fortunately there have been no symptoms of subclavian steal syndrome recently. Lastly, chest CT showed modest worsening of her known aortic aneurysm. The thoracic aortic aneurysm is now measuring over 6cm. Follow-up with her primary vascular surgeon was recommended. Prior to discharge she underwent a 2-step oxygen test which demonstrated NO NEED for ambulatory oxygen at home. She will continue on HS oxygen as previous, however. Total Time Spent: Greater than 30 minutes This includes examination of the patient, discharge planning, medication reconciliation, and communication with other providers. Discharge Instructions Please refer to the electronic Patient Visit Report (Discharge Instructions) for additional information. Follow-Up 1. see Dr. Isauro Lange, PCP, within [address] Rehan Novak, cardiology, within 1-2 weeks 3. recommend outpatient pulmonary consultation for lung nodule management and additional COPD work-up Additional Copies To Isauro Lange M.D.; Rehan Novak, DO; [facility]
== END 2017-03-24 16:35 | disposition home or self-care (01) | DRG 291 ==
LOC: EDBD 00:12 → C.EDA 00:13 → C.2T 03:53 → ENRESERV 04:20 → C.4E 03-23 12:35
PROVIDERS: ADMIT Internal Medicine; ATTEND Internal Medicine
DX: I13.0 Hypertensive heart and chronic kidney disease with heart failure and stage 1 through stage 4 chronic kidney disease, or unspecified chronic kidney disease (principal); I50.33 Acute on chronic diastolic (congestive) heart failure; J44.1 Chronic obstructive pulmonary disease with (acute) exacerbation; N18.3 Chronic kidney disease, stage 3 (moderate); I25.10 Atherosclerotic heart disease of native coronary artery without angina pectoris; E03.9 Hypothyroidism, unspecified; E78.5 Hyperlipidemia, unspecified; I27.20 Pulmonary hypertension, unspecified; I95.9 Hypotension, unspecified; Z99.81 Dependence on supplemental oxygen; Z86.73 Personal history of transient ischemic attack (TIA), and cerebral infarction without residual deficits; Z79.82 Long term (current) use of aspirin; Z87.891 Personal history of nicotine dependence

== ENCOUNTER → 2017-04-20 | Outpatient (CLI) | payer OTHER, MEDICARE ==
[~2017-04-20] MED LIST changes: +AFRINWC NAE; +ALBINS INH; +AMIO200T4 PO; -AMLO2.5T PO; -BUME1TAB PO; +IMDSR30 PO; -LEVO125T72 PO; +LEVO150T9 PO; -OLME20TA26 PO; +POTA1TAB97 PO; +PRED10TA PO; +SPRIN INH
[2017-04-20 13:11] LABS: BLOOD UREA NITROGEN 20 mg/dl (7-18); CALCIUM 8.8 mg/dl (8.5-10.1); CARBON DIOXIDE 39 mmol/L (21-32); CREATININE 1.33 mg/dl (0.60-1.20); GLUCOSE 103 mg/dl (70-99); POTASSIUM 4.1 mmol/L (3.5-5.1); SODIUM 131 mmol/L (136-145)
== END | disposition home or self-care (01) ==
LOC: C.LABOAKS 10:26
PROVIDERS: ATTEND Physician Assistant
DX: I50.20 Unspecified systolic (congestive) heart failure (principal); I27.20 Pulmonary hypertension, unspecified